=== PATIENT | male | born 1965 | race Caucasian/White ===

== ENCOUNTER 2017-06-28 23:03 | Observation (INO) ==
[2017-06-28] MEDS ORDERED: 0.9 % Sodium Chloride 500 ML IVC ONE (23:17)
--- NOTE | 2017-06-28 23:19 | Emergency Department Note ---
Disposition Clinical Impression: Chest pain Qualifiers: Chest pain type: unspecified Qualified Code(s): R07.9 - Chest pain, unspecified Disposition: Admitted As Inpatient Condition: Good [facility]errals: [facility]Primary Care Provider[facility] - Forms: ED Satisfaction Letter Time of Disposition: 23:51 Chest Pain HPI - General Chief Complaint: ED Chest Pain Stated Complaint: CP, SOB Time Seen by Provider: 06/28/17 23:07 Source: patient, EMS Limitations: no limitations Vital Signs Reviewed: Yes Nursing Notes Reviewed: Yes - History of Present Illness HPI Narrative: Patient is a 52-year-old male with a past medical history of COPD who presents to the emergency department with a complaint of sharp stabbing chest pain that started an hour prior to arrival. He states he was sitting at home on the couch when it came on suddenly as left-sided, sharp, radiating into his left shoulder blade and he states he did not experience any nausea, vomiting, shortness of breath. Denies any history of CAD or stents. He states he is currently asymptomatic his chest pain is improved and he received 3 doses of nitroglycerin by squad. He states he also received 4 baby aspirin in the squad. Severity scale (1-10): 0 - Related Data Previous Rx's Medication Instructions Recorded Albuterol Sulfate [Albuterol 1 puff IH Q4H PRN #1 puff 01/09/16 Inhaler] levoFLOXacin [Levaquin] 500 mg PO DAILY #7 tablet 01/09/16 predniSONE [Prednisone] 50 mg PO DAILY 5 Days 01/09/16 Allergies Allergy/AdvReac Type Severity Reaction Status Date / Time No Known Allergies Allergy Verified 06/28/17 23:10 All systems ED: reviewed and negative except as stated. Constitutional: Denies: fever Cardiovascular: Reports: chest pain Respiratory: Reports: cough (Not a new cough is a chronic cough due to his COPD. ). Denies: dyspnea, wheezes Gastrointestinal: Denies: abdominal pain, nausea, vomiting Chest Pain PMH - Past Medical History Medical history: Reports: COPD Psychiatric history: Reports: other - Social History Smoking Status: Former smoker Alcohol use: Reports: none Drug use: Reports: none Physical Exam Patient is sitting in bed comfortably. Does not appear to be in any acute distress. He is smiling on exam. - General Limitations: no limitations General appearance: alert, in no apparent distress, appears intoxicated - Head Head exam: atraumatic, normocephalic - Eye Eye exam: Present: normal appearance, PERRL, EOMI - ENT ENT exam: normal exam, normal oropharynx, mucous membranes moist - Neck Neck exam: Present: normal inspection, full ROM, trachea midline. Absent: tenderness - Chest Chest inspection: Present: normal inspection, symmetric chest wall rise. Absent : tenderness - Respiratory Respiratory exam: Present: normal lung sounds bilaterally. Absent: respiratory distress - Cardiovascular Cardiovascular exam: Present: regular rate, normal rhythm, normal heart sounds - Abdominal Exam Abdominal exam: Present: soft, Non-Tender, normal bowel sounds - Extremities Exam Extremities exam: Present: normal inspection, full ROM. Absent: tenderness - Expanded Lower Extremity Exam Neurovascular/Tendon exam: Present: normal capillary refill - Back Exam Back exam: Present: normal inspection, full ROM. Absent: tenderness - Neurological Exam Neurological exam: Present: alert, oriented X3 - Psychiatric Psychiatric exam: Present: normal affect, normal mood - Skin Skin exam: Present: warm, dry, intact, normal color Course Course Narrative: Patient complains of left-sided sharp stabbing chest pain that radiates into the shoulder blade that improved with nitroglycerin by squad he received 4 baby aspirin as well. Plan is to work him up for cardiac workup and most likely admit the patient for ACS rule out. - Reevaluation(s) Reevaluation #1: I spoke with Dr. Dial hospitalist agrees to accept the patient for ACS rule out. Time: 23:50 Reevaluation #2: I discussed the negative lab work with the patient. Discussed my plan to admit the patient for ACS rule out there are hospitalist. The patient agrees with the plan. Time: 23:52 Vital Signs Temperature 98.3 F 06/28/17 23:05 Pulse Rate 79 06/28/17 23:05 Respiratory Rate 16 06/28/17 23:05 Blood Pressure 119/83 06/28/17 23:05 O2 Sat by Pulse Oximetry 95 06/28/17 23:05 Temperature 98.3 F 06/28/17 23:05 Pulse Rate 79 06/28/17 23:05 Respiratory Rate 16 06/28/17 23:05 Blood Pressure 119/83 06/28/17 23:05 O2 Sat by Pulse Oximetry 95 06/28/17 23:05 Oxygen Delivery Oxygen Delivery Room Air Chest Pain - Medical Records Medical records reviewed: Yes I reviewed the patient's medical records. - Lab Data Lab results reviewed: Yes I reviewed the patient's lab results. Result diagrams: 06/28/17 23:11 06/28/17 23:11 Lab Results 06/28/17 06/28/17 06/28/17 Range/Units 23:11 23:11 23:11 WBC 9.9 (4.3-11.1) K/mcL RBC 4.49 (4.19-5.50) M/mcL Hgb 13.1 (12.9-16.9) g/dL Hct 38.9 (37.5-50.1) % MCV 86.6 (83.0-100.0) fL MCH 29.2 (28.0-33.3) pg MCHC 33.7 (31.6-35.5) g/dL RDW 13.0 (11.5-14.5) % Plt Count 281 (140-400) K/mcL MPV 9.4 (9.4-12.4) fL Immature Gran % 0.2 (0-4) % Seg Neutrophils % 49.1 % Lymphocytes % 39.4 % Monocytes % 8.5 % Eosinophils % 2.4 % Basophils % 0.4 % Neutrophils # 4.8 (1.6-8.9) K/mcL Lymphocytes # 3.9 (0.6-4.6) K/mcL Monocytes # 0.8 (0.0-1.3) K/mcL Eosinophils # 0.2 (0.0-0.6) K/mcL Basophils # 0.0 (0.0-0.2) K/mcL PT 12.2 H (9.4-12.1) Seconds INR 1.1 APTT 29.9 (26.0-36.0) Seconds Sodium 138 (136-145) mEq/L Potassium 3.6 (3.5-4.5) mEq/L Chloride 106 (98-109) mEq/L Carbon Dioxide 23 (19-29) mEq/L BUN 23 (8-26) mg/dL Creatinine 1.02 (0.72-1.25) mg/dL Est GFR ( Amer) > 60 (> 60) Est GFR (Non-Af Amer) > 60 (> 60) BUN/Creatinine Ratio 23 (6-26) Glucose 93 (70-99) mg/dL Calculated Osmolality 289 (280-300) Calcium 9.3 (8.6-10.8) mg/dL Troponin I (0-0.03) ng/mL 06/28/17 Range/Units 23:11 WBC (4.3-11.1) K/mcL RBC (4.19-5.50) M/mcL Hgb (12.9-16.9) g/dL Hct (37.5-50.1) % MCV (83.0-100.0) fL MCH (28.0-33.3) pg MCHC (31.6-35.5) g/dL RDW (11.5-14.5) % Plt Count (140-400) K/mcL MPV (9.4-12.4) fL Immature Gran % (0-4) % Seg Neutrophils % % Lymphocytes % % Monocytes % % Eosinophils % % Basophils % % Neutrophils # (1.6-8.9) K/mcL Lymphocytes # (0.6-4.6) K/mcL Monocytes # (0.0-1.3) K/mcL Eosinophils # (0.0-0.6) K/mcL Basophils # (0.0-0.2) K/mcL PT (9.4-12.1) Seconds INR APTT (26.0-36.0) Seconds Sodium (136-145) mEq/L Potassium (3.5-4.5) mEq/L Chloride (98-109) mEq/L Carbon Dioxide (19-29) mEq/L BUN (8-26) mg/dL Creatinine (0.72-1.25) mg/dL Est GFR ( Amer) (> 60) Est GFR (Non-Af Amer) (> 60) BUN/Creatinine Ratio (6-26) Glucose (70-99) mg/dL Calculated Osmolality (280-300) Calcium (8.6-10.8) mg/dL Troponin I 0.00 (0-0.03) ng/mL - Radiology Data Radiology results reviewed: Yes I reviewed the patient's radiology results. Chest X-Ray 06/28/17 23:17 IMPRESSION: No acute findings. D/ / Claire Leung MD / Claire Leung MD Interpreting Provider: Claire Leung MD - EKG Data EKG attestation: Yes I reviewed and interpreted this EKG. EKG results narrative: Patient's EKG is sinus rhythm at 77. Normal axis. CO intervals are within normal limits. 186, QRS of 106, QT of 362, QTc of 394. I do not appreciate any ST elevations or depressions on this EKG. EKG is unchanged from his prior on January 092015.
[2017-06-28 23:23] LABS: Basophils % 0.4 %; Eosinophils # 0.2 K/mcL (0.0-0.6); Eosinophils % 2.4 %; Hematocrit 38.9 % (37.5-50.1); Hemoglobin 13.1 g/dL (12.9-16.9); Immature Granulocytes % 0.2 % (0-4); Lymphocytes # 3.9 K/mcL (0.6-4.6); Lymphocytes % 39.4 %; Mean Corpuscular HGB Conc 33.7 g/dL (31.6-35.5); Mean Corpuscular Hemoglobin 29.2 pg (28.0-33.3); Mean Corpuscular Volume 86.6 fL (83.0-100.0); Mean Platelet Volume 9.4 fL (9.4-12.4); Monocytes # 0.8 K/mcL (0.0-1.3); Monocytes % 8.5 %; Neutrophils # 4.8 K/mcL (1.6-8.9); Platelet Count 281 K/mcL (140-400); Red Blood Count 4.49 M/mcL (4.19-5.50); Segmented Neutrophils % 49.1 %
[2017-06-28 23:28] LABS: INR 1.1; Prothrombin Time 12.2 Seconds (9.4-12.1)
[2017-06-28] MEDS ORDERED: Vancomycin Oral Soln 250 MG/2.5 ML UDC PO SCH (23:30)
[2017-06-28] MEDS ORDERED: 0.9 % Sodium Chloride 1,000 ML IVC ONE (23:30)
[2017-06-28 23:31] LABS: Activated Partial Thrombo Time 29.9 Seconds (26.0-36.0)
[2017-06-28 23:36] LABS: BUN/Creatinine Ratio 23 (6-26); Blood Urea Nitrogen 23 mg/dL (8-26); Calcium 9.3 mg/dL (8.6-10.8); Carbon Dioxide 23 mEq/L (19-29); Chloride 106 mEq/L (98-109); Glucose 93 mg/dL (70-99); Osmolality,Calculated 289 (280-300); Potassium 3.6 mEq/L (3.5-4.5); Sodium 138 mEq/L (136-145); eGFR For African Americans > 60 (> 60); eGFR For Non-African Americans > 60 (> 60)
--- NOTE | 2017-06-28 23:49 | Emergency Department Note ---
START Narrative - START START: I examined this patient and my medical decision-making was reviewed with the Resident Physician. I agree with the documented findings, disposition and treatment plan as described except to the extent set forth below. 52-year-old male presents emergency room for left-sided chest pain. Pain radiation to the left shoulder. Social with some weakness shortness of breath. Lasted over an hour. He received 3 nitroglycerin sublingual tablets via EMS which relieved his chest pain. He was also given aspirin in route. Workup in the ER is unremarkable. He does have multiple risk factors. We will admit for observation.
[2017-06-29] MEDS ORDERED: Naloxone 0.4 MG/ML INJ IVP PRN (00:36)
--- NOTE | 2017-06-29 00:43 | Internal Med History&Physical ---
Date of Encounter: 06/29/17 Time of Encounter: 00:41 Assessment and Plan (1) Chest pain Current visit: Yes Status: Acute EKG wnl. Trend trop. Given smoking hx, will r/o with stress testing in the a.m Qualifiers: Chest pain type: unspecified Qualified Code(s): R07.9 - Chest pain, unspecified (2) Depression Current visit: Yes Status: Acute continue home meds Qualifiers: Qualified Code(s): F32.9 - Major depressive disorder, single episode, unspecified Internal Medicine - H&P: HPI Chief complaint: Chest pain History of present illness: Mr. 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 Pain started at 9pm in the evening while at rest sitting. Described as left sided, radiating to shoulder blade, rate 9/10 and stabbing quality. Had a similar episode yesterday evening. Pain lasted 1 hour. 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 Has depression/anxiety on sertraline. EKG with rate 77, NSR, initial trop negative in the ED. Past Med Surg Social Fam HX - Past Medical History Medical history: COPD Psychiatric history: other - Social History Smoking Status: Former smoker Smokeless Tobacco Status: No Alcohol use: none Drug use: none - Additional Family History Additional family history: HTN Internal Medicine - H&P: Meds Albuterol Sulfate [Albuterol Inhaler] 1 puff IH Q4H PRN #1 puff 01/09/16 [Rx] levoFLOXacin [Levaquin] 500 mg PO DAILY #7 tablet 01/09/16 [Rx] predniSONE [Prednisone] 50 mg PO DAILY 5 Days 01/09/16 [Rx] Allergies No Known Allergies Allergy (Verified 06/28/17 23:10) All Systems PM: A 10-system review of systems was performed and is negative for pertinent findings except as documented above in the HPI. Review of systems: ROS 14 point review of systems reviewed as best as possible given presentation. Pertinent positive or negative as per HPI or otherwise reviewed as negative - Constitutional Vitals: Temp Pulse Resp BP Pulse Ox 98.3 F 65 20 108/75 95 06/28/17 23:05 06/29/17 00:20 06/29/17 00:20 06/29/17 00:20 06/29/17 00:20 Exam: General - AAO x 3 Psych - Appropriate affect/speech. No agitation Eyes - ESTELLA. Eye lids intact. No scleral icterus ENT - Oral mucosa pink, dentition intact. External ear clear/dry/intact. No thyromegaly Lymphatics - No cervical/inguinal lympadenopathy Neuro - No gross peripheral or central neuro deficits with intact CN 2-12 exam Heart - Sinus. RRR. S1 and S2 present. No added HS/murmurs appreciated. No elevated JVD appreciated. No calf swellings/erythema Lung - Adequate air entry b/l, No crackes/wheezes appreciated GI - Soft, non-tender. No hepatosplenomegaly/ascities. BS+ - No CVA/suprapubic tenderness or palpable bladder distension Skin - Intact. No rash/petechiae/ecchymosis. Warm extremities MSK - right BKA Internal Med - H&P Results - Labs CBC & Chem 7: 06/28/17 23:11 06/28/17 23:11
[2017-06-29] MEDS ORDERED: Regadenoson 0.4 MG/5 ML SYRINGE IVP ONE (07:19)
--- NOTE | 2017-06-29 10:01 | Nuclear Medicine Stress Report ---
Regadenoson Nuclear Stress Name: Pop Armijo Date of Study: 06/29/2017 Date: 1965 Ht: 74.0 in Medical Record#: [id number] Age: 52 Wt: 220.0 lb Gender: Male Order #: [id number] Location: [facility] Room: [facility] Supervising Provider: Henny Gramajo CNP Reading Physician: Monica Nova DO Ordering Physician: Ayla Dee CNP Primary Care Physician: [facility] Stress Technologist: Swapna Jaquez CHANGE RELEASE MANAGER, [employer] Technical Officer: Tammie Chavez Indications: Chest Pain Impression: Perfusion imaging was negative for ischemia or infarct. Pharmacologic ECG was negative for ischemia at the level of heart rate achieved. Gated EF = 55%. History: History of Smoking Stress Test Summary: Stress Test Type: Pharmacologic Regadenoson 0.4mg/5ml given IV Baseline Information: Initial Heart Rate: 71 Blood Pressure: 122/70 Stress Information: Test Terminated Due to (primary): As per protocol Maximum Blood Pressure: 114/72 Maximum Heart Rate: 110 Percent Maximum Heart Rate Achieved: 65 Double Product: [id number] METS Reached: 1 Symptoms: No chest symptoms Nuclear Summary: SPECT myocardial perfusion imaging using Tc99m Sestamibi given intravenously was performed at rest and following cardiac stress testing. The resting images were obtained following initial dose of 11.0 mCi. Following stress an additional dose of 35.4 mCi was given at peak exercise or 30 seconds post regadenoson infusion. Medication Given: Time Medication Dose Units Route Findings: Stress Note * Resting ECG demonstrated normal sinus rhythm with nonspecific ST abnormalities. * Pharmacologic stress ECG is negative for ischemia at level of heart rate achieved. * No arrhythmias were noted during stress. * Patient had no chest pain during stress. Hemodynamic responses * Normal hemodynamic responses to pharmacologic stress. Study Quality * Study quality was fair. Gated EF % * Gated EF = 55%. Left Ventricle * The left ventricle is not dilated. TID * No evidence of transient ischemic dilatation. Lung Uptake * There is no evidence of increase lung uptake. NORMALS * Normal wall motion. PERFUSION * There is a small sized, mild intensity fixed perfusion defect involving the basal inferior wall. Wall motion is normal. Findings represent artifact. * Other segments demonstrate normal rest and stress perfusion. Updated by Monica Nova on 06/29/2017 9:56:41 AM electronically signed on 06/29/2017 9:57:28 AM with status of Final
[2017-06-29 11:04] VITALS: BP 116/75
--- NOTE | 2017-06-29 12:39 | Discharge Summary ---
Date of Encounter: 06/29/17 Time of Encounter: 10:00 - Discharge Diagnosis (1) Chest pain Priority: Primary Status: Acute Qualifiers: Chest pain type: unspecified Qualified Code(s): R07.9 - Chest pain, unspecified (2) Depression Priority: Secondary Status: Acute Qualifiers: Qualified Code(s): F32.9 - Major depressive disorder, single episode, unspecified - Discharge Medications Home Medications: Albuterol Sulfate [Albuterol Inhaler] 1 puff IH Q4H PRN #1 puff 01/09/16 [Rx] levoFLOXacin [Levaquin] 500 mg PO DAILY #7 tablet 01/09/16 [Rx] predniSONE [Prednisone] 50 mg PO DAILY 5 Days 01/09/16 [Rx] Allergies/Adverse Reactions: Allergies No Known Allergies Allergy (Verified 06/28/17 23:10) Procedures/tests Complete & Pending: Procedures Performed prior 72 hours Category Date Time Status NM saul perf SPECT multi [NM] Routine Exams 06/29/17 06:44 Taken SP pharm nuclear stress Routine Y 06/29/17 07:30 Completed Date of admission: 06/29/17 00:11 Primary care physician: [facility] Discharging clinician: Spencer Li Anticipated date of discharge: 06/29/17 - Patient Status Disposition: Home, Self-Care Condition: Good Functional capacity at discharge: independent ambulation Overall status at discharge: patient is back to baseline - Discharge Instructions Follow Up With: [facility] [Primary Care Provider] - - Diet and Activity Activity: increase activity as tolerated Diet: advance to your usual diet Interval History: HPI: Mr. 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 Pain started at 9pm in the evening while at rest sitting. Described as left sided, radiating to shoulder blade, rate 9/10 and stabbing quality. Had a similar episode yesterday evening. Pain lasted 1 hour. 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 Has depression/anxiety on sertraline. EKG with rate 77, NSR, initial trop negative in the ED. Hospital course: Mr. Armijo is a 52 year old male admitted for chest pain to rule out ACS. Patient was placed on continuous cardiac monitoring. 2 sets of troponin negative. Chest x-ray and EKG unremarkable. Nuclear stress test has been done , which is negative. Patient has no chest pain and more since admission. We will discharge patient home. Smoking cessation education done. I saw and examined the patient today. He is awake, alert, oriented 3. Vitals are stable. No further chest pain. We will discharge patient home and to follow-up with PCP as outpatient. Time spent discussing smoking cessation with patient: 3 to 10 minutes - Time Spent with Patient Total time spent providing and/or coordinating discharge services: 25 minutes Less than 30 minutes - Constitutional Vitals: Temp Pulse Resp BP Pulse Ox 97.6 F 87 14 116/75 96 06/29/17 11:02 06/29/17 11:02 06/29/17 11:02 06/29/17 11:02 06/29/17 11:02 General appearance: Present: A&O X 3, answers questions appropriately - Head Head exam: Present: atraumatic, normocephalic - Eye Eye exam: Present: PERRL, conjuntiva pink, sclera anicteric Pupils: Present: PERRL - Neck Neck exam general surgery: Present: supple, trachea midline. Absent: lymphadenopathy - Respiratory Respiratory exam: Present: CTAB. Absent: accessory muscle use, rales, rhonchi, wheezes - Cardiovascular Cardiovascular exam: Present: RRR, +S1, +S2. Absent: diastolic murmur, gallop, rubs, systolic murmur - GI/Abdominal GI/Abdominal exam: Present: normal bowel sounds, soft, no peritoneal signs. Absent: distended, tenderness - Extremities Exam Extremities exam: Present: warm, radial pulses palpable and symetrical. Absent : calf tenderness, cyanotic, pedal edema - Neurological Exam Neurological exam: Present: CN II-XII intact, oriented X3, no focal deficits. Absent: pronater drift, facial droop, speech deficit - Skin Skin exam: Present: dry, intact
--- NOTE | 2017-06-29 17:56 | Electrocardiograph Report ---
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
== END 2017-06-29 15:36 | disposition home or self-care (01) ==
LOC: 3BNU 23:03 → EMEROO 23:03 → 3BNU 06-29 01:04
PROVIDERS: ADMIT Internal Medicine Hematology & Oncology; ATTEND Nurse Practitioner Family

== ENCOUNTER 2018-09-09 16:26 | Inpatient (IN) ==
[2018-09-09 17:08] LABS: Basophils % 0.3 %; Eosinophils # 0.1 K/mcL (0.0-0.6); Eosinophils % 1.3 %; Hematocrit 34.6 % (37.5-50.1); Hemoglobin 12.4 g/dL (12.9-16.9); Immature Granulocytes % 0.3 % (0-4); Lymphocytes # 0.4 K/mcL (0.6-4.6); Lymphocytes % 10.9 %; Mean Corpuscular HGB Conc 35.8 g/dL (31.6-35.5); Mean Corpuscular Hemoglobin 29.7 pg (28.0-33.3); Mean Platelet Volume 10.3 fL (9.4-12.4); Monocytes # 0.3 K/mcL (0.0-1.3); Monocytes % 8.2 %; Platelet Count 152 K/mcL (140-400); Red Blood Count 4.17 M/mcL (4.19-5.50); Red Cell Distribution Width 12.8 % (11.5-14.5)
[2018-09-09 17:13] LABS: Prothrombin Time 11.1 Seconds (9.4-12.1)
[2018-09-09 17:16] LABS: Activated Partial Thrombo Time 28.5 Seconds (26.0-36.0)
[2018-09-09] MEDS: D5% in 0.9% NACL 1,000 ML IVC SCH (17:16)
[2018-09-09 17:20] LABS: Alanine Aminotransferase 24 Units/L (7-52); Albumin 3.9 g/dL (3.5-5.7); Albumin/Globulin Ratio 1.2 (1.1-2.2); Alkaline Phosphatase 61 Units/L (34-104); Aspartate Amino Transferase 16 Units/L (13-39); BUN/Creatinine Ratio 30 (6-26); Bilirubin,Total 0.5 mg/dL (0.3-1.0); Blood Urea Nitrogen 20 mg/dL (6-20); Calcium 9.8 mg/dL (8.6-10.3); Carbon Dioxide 26 mEq/L (23-29); Chloride 104 mEq/L (98-107); Globulin 3.3 g/dL (2.4-3.5); Glucose 81 mg/dL (70-105); Osmolality,Calculated 282 (280-300); Potassium 4.2 mEq/L (3.5-5.1); Sodium 135 mEq/L (136-145); Total Protein 7.2 g/dL (6.4-8.9); eGFR For Non-African Americans > 60 (> 60)
[2018-09-09] MEDS ORDERED: Pantoprazole 40 MG VIAL IVP ONE (18:39)
[2018-09-09] MEDS ORDERED: Ondansetron 4 MG/2 ML VIAL IVP PRN (23:28)
[2018-09-09] MEDS ORDERED: OXYCODONE Oral CONC 10 MG/0.5 ML ORAL.SYG SL PRN (23:30)
[2018-09-10] MEDS: 0.9 % Sodium Chloride 1,000 ML IVC SCH ×4 (00:55→21:31)
[2018-09-10 03:22] LABS: Basophils % 0.3 %; Eosinophils # 0.1 K/mcL (0.0-0.6); Eosinophils % 2.6 %; Hematocrit 33.5 % (37.5-50.1); Hemoglobin 11.4 g/dL (12.9-16.9); Immature Granulocytes % 0.3 % (0-4); Lymphocytes # 0.5 K/mcL (0.6-4.6); Lymphocytes % 15.3 %; Mean Corpuscular Hemoglobin 29.2 pg (28.0-33.3); Mean Corpuscular Volume 85.7 fL (83.0-100.0); Mean Platelet Volume 10.1 fL (9.4-12.4); Monocytes # 0.2 K/mcL (0.0-1.3); Monocytes % 7.8 %; Neutrophils # 2.3 K/mcL (1.6-8.9); Platelet Count 125 K/mcL (140-400); Red Blood Count 3.91 M/mcL (4.19-5.50); Red Cell Distribution Width 12.6 % (11.5-14.5); Segmented Neutrophils % 73.7 %
[2018-09-10 03:45] LABS: BUN/Creatinine Ratio 27 (6-26); Blood Urea Nitrogen 16 mg/dL (6-20); Calcium 8.8 mg/dL (8.6-10.3); Carbon Dioxide 26 mEq/L (23-29); Chloride 106 mEq/L (98-107); Glucose 93 mg/dL (70-105); Osmolality,Calculated 285 (280-300); Sodium 137 mEq/L (136-145); eGFR For Non-African Americans > 60 (> 60)
[2018-09-10] MEDS: Pantoprazole 40 MG VIAL IVP SCH ×2 (05:46→08:20)
--- NOTE | 2018-09-10 07:39 | General Surg History&Physical ---
Date of Encounter: 09/10/18 Time of Encounter: 07:37 Assessment and Plan (1) Esophageal carcinoma Current Visit: Yes Status: Acute 53M with esophageal cancer with significant weight loss and progressive dysphagia; plan for J tube placement today will need home health for continued management/supplies preop cxr, ekg The assessment and plan as outlined above was discussed with the patient and/or family members who expressed understanding and agreement. All questions were answered. History of Present Illness Chief complaint: esophageal cancer/weight loss HPI: Mr. Armijo is a 53 year old male with a recent diagnosis of esophgeal cancer currently undergoing neoadjuvant therapy (next radiation date is today and next chemo session is this week. his last date for neoadjuvant therapy is 09/30) who is now experiencing worsening dysphagia to both solids and now to liquids. His goal is to consume about 5 bottles of ensure, but he states that he is christel to get through three bottles. Overall he is nutritionally deplete, losing 35lbs since his diagnosis and neoadjuvant therapy Past Med Surg Social Fam HX - Past Medical History Medical history: arthritis, cancer, COPD, hyperlipidemia, other Additional medical history: sleep apnea, esophageal cancer Psychiatric history: PTSD - Past Surgical History Surgical History: other Additional surgical history: colonoscopy,. Right BKA - Social History Smoking Status: Former smoker Smokeless Tobacco Status: No Alcohol use: none Drug use: none - Family History Maternal Grandmother Living Status: Hx Family Cardiac Disorders: Yes ([place]) Hx Family Respiratory Disorders: No Hx Family Cancer: No Hx Family GI Disorders: No Hx Family Endocrine Disorder: No Hx Family Neuromuscular Disorders: No Hx Family Neurologic Disorders: No Hx Family HEENT Disorders: No Hx Family Autoimmune Disorders: No Father Living Status: Hx Family Cardiac Disorders: No Hx Family Respiratory Disorders: No Hx Family Cancer: Yes (liver) Hx Family GI Disorders: No Hx Family Endocrine Disorder: No Hx Family Neuromuscular Disorders: No Hx Family Neurologic Disorders: No Hx Family HEENT Disorders: No Hx Family Autoimmune Disorders: No Mother Living Status: Still Living Hx Family Cancer: Yes Brother Living Status: Hx Family Cardiac Disorders: Yes Medications and Allergies No Known Home Drugs 09/09/18 [History] 3 Allergy/AdvReac Type Severity Reaction Status Date / Time No Known Allergies Allergy Verified 09/07/18 08:18 Review of Systems All systems PM: 12 point ROS negative besides HPI findings General Surgery Exam Initial Vital Signs Temp Pulse Resp BP Pulse Ox 97.9 F 89 16 113/71 99 09/09/18 16:30 09/09/18 16:30 09/09/18 16:30 09/09/18 16:30 09/09/18 16:30 - General physical appearance no distress - Eyes normal ocular movement - ENT normocephalic - Neck no lymphadectomy - Respiratory normal expansion, normal respiratory effort - Cardiovascular Cardiovascular exam: Present: RRR - Abdomen Abdomen general surgery: Present: soft, non tender - Integumentary Integumentary general surgery: Present: warm and dry - Neurologic Present: CN 2-12 grossly intact - Musculoskeletal Present: normal posture - Psychiatric Psychiatric general surgery: Present: A&Ox3 Results - Labs 09/10/18 03:15 09/10/18 03:15 Abnormal lab results WBC 3.1 K/mcL (4.3-11.1) L 09/10/18 03:15 RBC 3.91 M/mcL (4.19-5.50) L 09/10/18 03:15 Hgb 11.4 g/dL (12.9-16.9) L 09/10/18 03:15 Hct 33.5 % (37.5-50.1) L 09/10/18 03:15 Plt Count 125 K/mcL (140-400) L 09/10/18 03:15 Lymphocytes # 0.5 K/mcL (0.6-4.6) L 09/10/18 03:15 Creatinine 0.59 mg/dL (0.70-1.30) L 09/10/18 03:15 BUN/Creatinine Ratio 27 (6-26) H 09/10/18 03:15 Diabetes panel 09/10/18 Range/Units 03:15 Sodium 137 (136-145) mEq/L Potassium 4.0 (3.5-5.1) mEq/L Chloride 106 (98-107) mEq/L Carbon Dioxide 26 (23-29) mEq/L BUN 16 (6-20) mg/dL Creatinine 0.59 L (0.70-1.30) mg/dL Glucose 93 (70-105) mg/dL Calcium 8.8 (8.6-10.3) mg/dL Calcium panel 09/10/18 Range/Units 03:15 Calcium 8.8 (8.6-10.3) mg/dL Pituitary panel 09/10/18 Range/Units 03:15 Sodium 137 (136-145) mEq/L Potassium 4.0 (3.5-5.1) mEq/L Chloride 106 (98-107) mEq/L Carbon Dioxide 26 (23-29) mEq/L BUN 16 (6-20) mg/dL Creatinine 0.59 L (0.70-1.30) mg/dL Glucose 93 (70-105) mg/dL Calcium 8.8 (8.6-10.3) mg/dL Adrenal panel 09/10/18 Range/Units 03:15 Sodium 137 (136-145) mEq/L Potassium 4.0 (3.5-5.1) mEq/L Chloride 106 (98-107) mEq/L Carbon Dioxide 26 (23-29) mEq/L BUN 16 (6-20) mg/dL Creatinine 0.59 L (0.70-1.30) mg/dL Glucose 93 (70-105) mg/dL Calcium 8.8 (8.6-10.3) mg/dL All other labs normal.
[2018-09-10] MEDS ORDERED: Ipratropium/Albuterol Neb 3 ML IH PRN ×2 (07:54→20:34)
[2018-09-10] MEDS ORDERED: Nicotine 14 MG PATCH.TD24 TD PRN (07:55)
[2018-09-10] MEDS: *HR* Heparin 5,000 UNIT/ML VIAL SQ SCH ×2 (10:36→17:37)
[2018-09-10] MEDS ORDERED: Mag Hydrox/Al Hydrox/Simeth 30 ML UDC PO ONE (10:56)
[2018-09-10] MEDS ORDERED: Albuterol 2.5 MG/3 ML NEBULIZER IH ONE ×2 (17:26→18:47)
--- NOTE | 2018-09-10 17:29 | Anesthesia Evaluation PreOp ---
Date of Encounter: 09/10/18 Time of Encounter: 17:35 - Past History Planned Operation: Open Jejunostomy Cardiac History: Hyperlipidemia Pulmonary History: Smoker, COPD [employer] History: Denies Any Significant HX Other Medical History: Denies Any Significant HX Anesthesia History: No Prior Anesthetic Complications Alcohol Use: none Drug use: none Medications and Allergies No Known Home Drugs 09/09/18 [History] 3 Allergy/AdvReac Type Severity Reaction Status Date / Time No Known Allergies Allergy Verified 09/07/18 08:18 - Meds/Allergy Pre-op Review Medications Reviewed: Yes Allergies Reviewed: Yes Beta Blockers on Current Med List: No Anesthesia Results - Labs 09/10/18 03:15 09/10/18 03:15 Laboratory Tests 09/09/18 09/10/18 09/10/18 16:50 03:15 03:15 Hgb 11.4 L Hct 33.5 L Plt Count 125 L PT 11.1 INR 1.0 APTT 28.5 Sodium 137 Potassium 4.0 BUN 16 Creatinine 0.59 L - Imaging EKG: report reviewed (SR) Additional studies: ECHO 2016 EF 55% no pulm htn Anesthesia Exam O2 Sat Height 1.88 m Weight 93.5 kg O2 Sat by Pulse Oximetry 96 O2 Sat by Pulse Oximetry 97 O2 Sat by Pulse Oximetry 97 O2 Sat by Pulse Oximetry 96 O2 Sat by Pulse Oximetry 98 O2 Sat by Pulse Oximetry 100 Vital Signs Temp Pulse Resp BP Pulse Ox 97.9 F 89 16 113/71 99 09/09/18 16:30 09/09/18 16:30 09/09/18 16:30 09/09/18 16:30 09/09/18 16:30 Height: 6'2 Weight: 206 lbs NPO (# of Hours): MN Pain Scale: 0 - HEENT Pupil (Motor): Pupils equal, EOMI Mallampati: II Teeth: Normal Oral Opening: Greater than 3 - [employer] LOC: Oriented [employer] Motor: Normal RUE, Normal LUE, Normal RLE, Normal LLE, Normal Face [employer] Sensory: Normal: RUE, LUE, RLE, LLE, Face - Cardiac Rhythm: Regular Murmur: None JVD: No Carotid Bruit: No - Pulmonary Breath Sounds: bilateral Clear Respiratory Effort: Symmetrical Anesthesia Assess/Plan ASA Score: 2 Modified Linden Scale for Level of Consciousness: Cooperative, oriented, and tranquil Anesthetic Plan: General Monitoring Plan: Standard Monitors Recovery Plan: PACU (Discussed GA, agrees to proceed)
[2018-09-10] MEDS ORDERED: *HR* FentaNYL (PF) 100 MCG/2 ML VIAL ONE ×2 (17:47→18:25)
[2018-09-10] MEDS ORDERED: *HR* Succinylcholine 200 MG/10 ML VIAL IVP ONE (17:47)
[2018-09-10] MEDS ORDERED: Lidocaine -MPF 2% 2 ML VIAL ONE (17:47)
[2018-09-10] MEDS ORDERED: *HR* Propofol 200 MG/20 ML VIAL IVP ONE (17:47)
[2018-09-10] MEDS ORDERED: *HR* Midazolam HCl 2 MG/2 ML VIAL ONE (17:47)
[2018-09-10] MEDS ORDERED: *HR* Rocuronium Bromide 50 MG/5 ML VIAL ONE (17:47)
[2018-09-10] MEDS ORDERED: Acetaminophen IV 1,000 MG/100 ML INFUS..BTL ONE (17:48)
[2018-09-10] MEDS ORDERED: Lidocaine -MPF 4% 5 ML AMPUL ONE (17:50)
[2018-09-10] MEDS ORDERED: Ipratropium Neb 0.5 MG NEBULIZER IH ONE (18:47)
[2018-09-10] MEDS ORDERED: *HR* Meperidine 25 MG/ML SYRINGE IVP PRN (18:47)
[2018-09-10] MEDS ORDERED: *HR* Labetalol 20 MG/4 ML SYRINGE IVP PRN (18:47)
[2018-09-10] MEDS ORDERED: *HR* HYDROmorphone (PF) 1 MG/ML SYRINGE IVP PRN (18:47)
[2018-09-10] MEDS ORDERED: *HR* Promethazine 25 MG/ML VIAL IVP PRN (18:47)
[2018-09-10] MEDS ORDERED: Neostigmine Methylsulfate 3 MG/3 ML SYRINGE ONE (19:08)
[2018-09-10] MEDS ORDERED: *HR* Morphine 10 MG/ML VIAL ONE ×2 (19:10→19:17)
--- NOTE | 2018-09-10 19:54 | Operative Note ---
Date of procedure: 09/10/18 Pre-op diagnosis: dysphagia 2/2 esophageal cancer Post-op diagnosis: same Procedure: feeding jejunostomy placement Implants: red rubber catheter for J tube feeds Complications: none Anesthesia: GETA Local Anesthetics: 0.5% Sensorcaine HCL SubQ (cc) Surgeon: Ismael Mccarthy Was there an emergency veterinary assistant present: No Estimated blood loss (cc): 10 Specimen: none Condition: stable Disposition: PACU Procedure in Detail: patient was brought into the operating room suite. Placed in the supine position. Mechanical DVT prophylaxis was placed. He underwent smooth induction of anesthesia. Prepped and draped in the usual fashion. Preoperative antibiotics were given. A time out was held identifying correct patinet pathology procedure and physician. I created a midline incision, dissected through the abdominal wall layers until I entered the abdomen. I found the ligament of treitz and found the most proximal limb of bowel that would reach to the left abdominal wall without tension. This was approximately 45cm distal to the ligament of treitz. I created a purse string using 3-0 silk suture around the bowel on the antimesenteric side. I followed that with a second pursestring around the original. I created my enterotomy and inserted the ramiro rubber catheter. I then tied my sutures. I then created an incision on the outside of the abdominal and pulled the end of the catheter through it. I then created my serosal tunnel in the Weitzl fashion. I then anchored the bowel to the abdominal wall in three places. I then flushed the red rubber catheter with saline via a toumey syringe. There was no obvious leaking from the bowel. All air an fluid went into the bowel. I then secured the catheter to the abdominal wall with 2-0 prolene. I then closed the fascia using the 1-0 PDS suture in a running fashion. I used vicryl to close the deep layers and stapled the skin together. The patient tolerated the procedure and was escorted to PACu in stable condition.
--- NOTE | 2018-09-10 20:14 | Anesthesia Evaluation Post Op ---
Date of Encounter: 09/10/18 Time of Encounter: 20:12 - Vital Signs Vital Signs: Vital Signs/O2 Sat, Most Current Temp Pulse Resp BP Pulse Ox 97.5 F L 87 16 137/94 94 09/10/18 19:40 09/10/18 20:00 09/10/18 20:00 09/10/18 20:00 09/10/18 20:00 - Lungs Lungs: Clear Ascult./Percussion - Airway Airway: Non-obstructed - Cardiovascular Regular Rate - Mental Status Mental Status: Alert & Oriented, Answers Appropriately - Pain Pain Scale: 0 - Nausea Vomiting Nausea Vomiting: Not Present - Hydration Hydration: Ice chips, Has not voided - Discharge PostOp Status: Transfer Patient to floor
[2018-09-10] MEDS: D5% in 0.9% NACL 1,000 ML IVC SCH (22:19)
[2018-09-10] MEDS: OXYCODONE Oral CONC 10 MG/0.5 ML ORAL.SYG SL PRN (23:22)
[2018-09-11] MEDS: 0.9 % Sodium Chloride 1,000 ML IVC SCH ×3 (05:21→21:19)
[2018-09-11] MEDS: *HR* Heparin 5,000 UNIT/ML VIAL SQ SCH ×2 (05:21→17:41)
[2018-09-11] MEDS: OXYCODONE Oral CONC 10 MG/0.5 ML ORAL.SYG SL PRN ×2 (05:22→17:41)
[2018-09-11] MEDS: Pantoprazole 40 MG VIAL IVP SCH (08:31)
--- NOTE | 2018-09-11 09:15 | Electrocardiograph Report ---
[place] [id number] Test Date: 2018-09-10 Pat Name: Pop Armijo Department: 115 Room: 3A48 Gender: M Kennel Keeper: : 1965 Requested By: Ismael Mccarthy Order Number: [id number] Reading MD: Monica Nova Measurements Intervals [place] Rate: 68 P: 54 NH: 194 QRS: 5 QRSD: 96 T: 27 QT: 382 QTc: 400 Interpretive Statements SINUS RHYTHM Electronically Signed On 09-11-2018 9:13:33 EDT by Monica Nova
--- NOTE | 2018-09-11 13:48 | General Surgery Progress Note ---
Date of Encounter: 09/11/18 Time of Encounter: 13:46 - Assessment and Plan (1) Esophageal carcinoma Current Visit: Yes Status: Acute POD 1 feeding jejunostomy tube placement with Dr Mccarthy for chronic dysphasia due to mass and weight loss - serial abdominal exams - supportive care and pain management; added Toradol q6 prn and continue oxycodone 10mg q 6 prn - continue IVFs - continue GI prophylaxes - up to chair tid - started tube feeds today; Nutrition consulted and may advance per protocol - plan to start routine J peg care tomorrow - trial soft by mouth with insure supplements - social work consulted for discharge planning as will need home health for j tube care (2) Jejunostomy tube site pain Current Visit: Yes Status: Acute see above (3) COPD (chronic obstructive pulmonary disease) Current Visit: Yes Status: Acute No signs of exacerbation - duonebs PRN Qualifiers: COPD type: unspecified COPD Qualified Code(s): J44.9 - Chronic obstructive pulmonary disease, unspecified (4) Malnutrition Current Visit: Yes Status: Chronic Nutrition consulted for tube feeds started at normal rate Qualifiers: Malnutrition type: protein-calorie malnutrition Protein-calorie malnutrition severity: unspecified severity Qualified Code(s): E46 - Unspecified protein-calorie malnutrition (5) DVT prophylaxis Current Visit: Yes Status: Acute Heparin sq and scd Subjective Patient reports: still having pain (worse at incision), other (tolerating tube feeds started today) Objective Vital Signs - Last 8 Hours Temp Pulse Resp BP Pulse Ox 09/11/18 12:42 98.4 F 107 16 121/82 92 09/11/18 07:48 97.9 F 112 15 138/81 98 Intake and Output 09/10/18 09/11/18 09/11/18 23:59 07:59 15:59 Intake Total 1000 / 1000 1000 / 1000 1085 / 1085 Output Total 650 / 650 650 / 650 Balance 990 / 990 350 / 350 435 / 435 Intake: IV Fluids 1000 / 1000 1000 / 1000 1000 / 1000 0.9 % Sodium Chloride 1,000 ML 1000 / 1000 1000 / 1000 1000 / 1000 @ 125 mls/hr IVC .Q8H [facility] Rx#: [id number] Oral 0 / 0 0 / 0 Free Water Intake Amount 85 / 85 Output: Urine 0 / 0 650 / 650 650 / 650 Estimated Blood Loss Other: Meal NPO for breakfast Weight 93.8 kg Blood Glucose* 95 Patient Weight 09/11/18 23:59 Weight 93.8 kg - General physical appearance well developed, well nourished, moderate pain - Eyes normal ocular movement - ENT normal pinna, normal nares, normal mucosa - Respiratory normal expansion, normal respiratory effort, clear to auscultation - Cardiovascular Cardiovascular exam: Present: RRR, no murmurs/rubs/gallops - Abdomen Abdomen: Present: bowel sounds present (minimal), soft Abdominal Tenderness: LUQ (at peg) - Incision Incision: Present: approximated. Absent: draining, inflamed, erythema - Integumentary no rash, no growths, no abnormal pigmentation - Neurologic CN 2-12 grossly intact, normal coordination, normal sensation - Musculoskeletal normal posture, other (moblity limited by amputation) - Psychiatric oriented to time, oriented to person, oriented to place, speech is normal, memory intact - Labs 09/10/18 03:15 09/10/18 03:15 Consult Discharge Plan - Plan Referrals: [facility] [Outside]
[2018-09-11] MEDS: Ketorolac 15 MG/ML VIAL IVP PRN (21:55)
[2018-09-11] MEDS: Ondansetron 4 MG/2 ML VIAL IVP PRN (21:56)
[2018-09-12] MEDS: OXYCODONE Oral CONC 10 MG/0.5 ML ORAL.SYG SL PRN ×3 (02:54→16:26)
[2018-09-12] MEDS: Ketorolac 15 MG/ML VIAL IVP PRN ×3 (03:45→19:32)
[2018-09-12] MEDS: 0.9 % Sodium Chloride 1,000 ML IVC SCH ×3 (05:22→23:42)
[2018-09-12] MEDS: *HR* Heparin 5,000 UNIT/ML VIAL SQ SCH ×2 (05:22→18:22)
--- NOTE | 2018-09-12 07:15 | General Surgery Progress Note ---
Date of Encounter: 09/12/18 Time of Encounter: 07:13 - Assessment and Plan (1) Esophageal carcinoma Current Visit: Yes Status: Acute POD 1 feeding jejunostomy tube placement with Dr Mccarthy for chronic dysphasia due to mass and weight loss - serial abdominal exams - supportive care and pain management - continue IVFs - continue GI prophylaxes - up to chair tid - start routine J peg care - social work consulted for discharge planning as will need home health for j tube care; will need [place] home health so will wait untill Thursday On Thursday- started tube feeds yesterday but held overnight due to increased pain and distension , ordered Acute abdominal series showed free air but Radiologist Dr Alejo could not appreciate if is was just consistent with POD 2 or significant for perforation. Then ordered CT showed possible ileus but not concerning for perforation - NPO - hold tube feeds but continue to flush (2) Jejunostomy tube site pain Current Visit: Yes Status: Acute see above (3) COPD (chronic obstructive pulmonary disease) Current Visit: Yes Status: Acute No signs of exacerbation - duonebs PRN Qualifiers: COPD type: unspecified COPD Qualified Code(s): J44.9 - Chronic obstructive pulmonary disease, unspecified (4) Ileus, postoperative Current Visit: Yes Status: Acute see above (5) Malnutrition Current Visit: Yes Status: Chronic Nutrition consulted for tube feeds - see above Qualifiers: Malnutrition type: protein-calorie malnutrition Protein-calorie malnutrition severity: unspecified severity Qualified Code(s): E46 - Unspecified protein-calorie malnutrition (6) DVT prophylaxis Current Visit: Yes Status: Acute Heparin sq and scd Subjective Patient reports: still having pain, no flatus, no bowel movement, nausea Narrative: Increased pain and nausea overnight lead to tube feeds being stoped. He describes pain as starting in epigastric region and moving to right side; deeper %greater than incision. Nausea worse with transfer. Improved with pain mediations more than stomping tube feeds. Tachycardia overnight with highest 118 last evening- vitals otherwise stable. Objective Vital Signs - Last 8 Hours Temp Pulse Resp BP Pulse Ox 09/12/18 03:06 98.7 F 100 15 143/90 92 Intake and Output 09/11/18 09/11/18 09/12/18 15:59 23:59 07:59 Intake Total 1115 / 1115 1560 / 1560 1000 / 1000 Output Total 650 / 650 0 / 0 350 / 350 Balance 465 / 465 1560 / 1560 650 / 650 Intake: IV Fluids 1000 / 1000 1000 / 1000 1000 / 1000 0.9 % Sodium Chloride 1,000 ML 1000 / 1000 1000 / 1000 1000 / 1000 @ 125 mls/hr IVC .Q8H [facility] Rx#: [id number] Oral 0 / 0 260 / 260 0 / 0 Free Water 100 / 100 Free Water Intake Amount 115 / 115 200 / 200 Output: Urine 650 / 650 0 / 0 350 / 350 Other: Meal NPO for breakfast # Bowel Movements 0 - General physical appearance well developed, well nourished, moderate distress - ENT normal pinna, normal nares, dry mucosa - Respiratory normal expansion, normal respiratory effort, clear to auscultation - Cardiovascular Cardiovascular exam: Present: RRR, no murmurs/rubs/gallops - Abdomen Abdomen: Present: bowel sounds present, soft, distended. Absent: guarding Abdominal Tenderness: RUQ, RLQ - Incision Incision: Present: red, approximated. Absent: draining, inflamed, purulent - Integumentary no rash, no growths, no abnormal pigmentation - Neurologic CN 2-12 grossly intact, normal coordination, normal sensation - Musculoskeletal normal posture, other (left below the knee amputated) - Psychiatric oriented to time, oriented to person, oriented to place, speech is normal, memory intact - Labs 09/10/18 03:15 09/10/18 03:15 Consult Discharge Plan - Plan Referrals: [facility] [Outside]
[2018-09-12] MEDS ORDERED: Isovue-370 500 ML INFUS..BTL IV ONE (08:20)
[2018-09-12] MEDS: Pantoprazole 40 MG VIAL IVP SCH (08:59)
[2018-09-12] MEDS: Ondansetron 4 MG/2 ML VIAL IVP PRN (17:19)
[2018-09-13] MEDS: Ketorolac 15 MG/ML VIAL IVP PRN ×4 (03:16→21:56)
[2018-09-13 03:52] LABS: Hematocrit 33.3 % (37.5-50.1); Hemoglobin 11.4 g/dL (12.9-16.9); Mean Corpuscular HGB Conc 34.2 g/dL (31.6-35.5); Mean Corpuscular Hemoglobin 29.8 pg (28.0-33.3); Mean Corpuscular Volume 86.9 fL (83.0-100.0); Mean Platelet Volume 10.1 fL (9.4-12.4); Platelet Count 113 K/mcL (140-400); Red Blood Count 3.83 M/mcL (4.19-5.50); Red Cell Distribution Width 12.9 % (11.5-14.5)
[2018-09-13 04:27] LABS: Lymphocytes # 0.2 K/mcL (0.6-4.6); Monocytes # 0.3 K/mcL (0.0-1.3); Neutrophils # 1.6 K/mcL (1.6-8.9); Platelet Estimate Slight Decrease (Normal)
[2018-09-13] MEDS: *HR* Heparin 5,000 UNIT/ML VIAL SQ SCH ×2 (05:09→18:22)
--- NOTE | 2018-09-13 07:55 | General Surgery Progress Note ---
<Meghann Smith - Last Filed: 09/13/18 13:31> Date of Encounter: 09/13/18 Time of Encounter: 07:53 - Assessment and Plan (1) Esophageal carcinoma Current Visit: Yes Status: Acute POD 3 feeding jejunostomy tube placement with Dr Mccarthy for chronic dysphasia due to mass and weight loss - serial abdominal exams - supportive care and pain management - continue IVFs - continue GI prophylaxes - up to chair and ambulate freely tid - start routine J peg care Social work consulted for discharge planning as will need home health for j tube care; will need [place] home health On Thursday- started tube feeds yesterday but held overnight due to increased pain and distension , ordered Acute abdominal series showed free air but Radiologist Dr Alejo could not appreciate if is was just consistent with POD 2 or significant for perforation. Then ordered CT showed possible ileus but not concerning for perforation - start clears and insure clears - Nutrition consulted and would appreciate their help to work with Dr Mccarthy in establishing a feeding schedule starting at slow rate of 10. Patient would prefer nightly feeding. - continue to flush tube during day Possible discharge tomorrow if able to tolerate tube feeds. Follow up out patient arranged with Dr Mccarthy on at 9am. (2) Ileus, postoperative Current Visit: Yes Status: Acute see above (3) Jejunostomy tube site pain Current Visit: Yes Status: Acute see above (4) COPD (chronic obstructive pulmonary disease) Current Visit: Yes Status: Acute No signs of exacerbation - duonebs PRN Qualifiers: COPD type: unspecified COPD Qualified Code(s): J44.9 - Chronic obstructive pulmonary disease, unspecified (5) Malnutrition Current Visit: Yes Status: Chronic Nutrition consulted for tube feeds - see above Qualifiers: Malnutrition type: protein-calorie malnutrition Protein-calorie malnutrition severity: unspecified severity Qualified Code(s): E46 - Unspecified protein-calorie malnutrition (6) DVT prophylaxis Current Visit: Yes Status: Acute Heparin sq and scd Subjective Patient reports: pain is less (tight feeling), no bowel movement, afebrile, other (burning acid pain and incrased burping) Objective Vital Signs - Last 8 Hours Temp Pulse Resp BP Pulse Ox 09/13/18 06:19 98.2 F 104 18 126/78 91 09/13/18 03:04 98.0 F 96 16 136/91 91 Intake and Output 09/12/18 09/12/18 09/13/18 15:59 23:59 07:59 Intake Total 1000 / 1000 1210 / 1210 0 / 0 Output Total 350 / 350 0 / 0 Balance 1000 / 1000 860 / 860 0 / 0 Intake: IV Fluids 1000 / 1000 1000 / 1000 0.9 % Sodium Chloride 1,000 ML 1000 / 1000 1000 / 1000 @ 125 mls/hr IVC .Q8H [facility] Rx#: [id number] Oral 0 / 0 0 / 0 Free Water 100 / 100 Free Water Intake Amount 110 / 110 Output: Urine 350 / 350 0 / 0 Other: Meal Breakfast Percent of Meal Consumed 0% Weight 95 kg Blood Glucose* 102 108 Patient Weight 09/13/18 23:59 Weight 95 kg - General physical appearance well developed, well nourished, no distress - Eyes normal ocular movement - ENT normal pinna, normal nares, normal mucosa - Respiratory normal expansion, normal respiratory effort, clear to auscultation - Cardiovascular Cardiovascular exam: Present: RRR, no murmurs/rubs/gallops - Abdomen Abdomen: Present: bowel sounds present, soft. Absent: guarding, rebound Abdominal Tenderness: diffusely Hernia: none - Incision Incision: Present: red (dried blood), approximated. Absent: draining, clean and dry, erythema - Integumentary no rash, no growths, no abnormal pigmentation - Neurologic CN 2-12 grossly intact, normal coordination, normal sensation - Musculoskeletal normal gait (at baseline), normal posture - Psychiatric oriented to time, oriented to person, oriented to place, speech is normal, memory intact - Labs 09/13/18 03:30 09/10/18 03:15 Consult Discharge Plan - Plan Referrals: [facility] [Outside] <Ismael Mccarthy - Last Filed: 09/14/18 07:23> Date of Encounter: 09/13/18 - Assessment and Plan (1) Esophageal carcinoma Current Visit: Yes Status: Acute Objective Vital Signs - Last 8 Hours Temp Pulse Resp BP Pulse Ox 09/14/18 04:15 97.8 F 97 17 142/92 93 09/14/18 00:18 98.1 F 101 20 124/85 92 Intake and Output 09/13/18 09/13/18 09/14/18 15:59 23:59 07:59 Intake Total 80 / 80 900 / 900 1000 / 1000 Output Total 225 / 225 60 / 60 Balance -145 / -145 840 / 840 1000 / 1000 Intake: IV Fluids 900 / 900 1000 / 1000 0.9 % Sodium Chloride 1,000 ML 900 / 900 1000 / 1000 @ 125 mls/hr IVC .Q8H [facility] Rx#: [id number] Oral 60 / 60 Free Water Intake Amount 20 / 20 Output: Urine 225 / 225 Gastric Drainage 60 / 60 Other: Meal Lunch Dinner Percent of Meal Consumed 0% 0% - Labs 09/14/18 03:57 09/14/18 03:57 Diabetes panel 09/14/18 Range/Units 03:57 Sodium 137 (136-145) mEq/L Potassium 3.7 (3.5-5.1) mEq/L Chloride 108 H (98-107) mEq/L Carbon Dioxide 22 L (23-29) mEq/L BUN 27 H (6-20) mg/dL Creatinine 0.58 L (0.70-1.30) mg/dL Glucose 105 (70-105) mg/dL Calcium 8.4 L (8.6-10.3) mg/dL AST 13 (13-39) Units/L ALT 13 (7-52) Units/L Alkaline Phosphatase 40 (34-104) Units/L Albumin 2.8 L (3.5-5.7) g/dL Calcium panel 09/14/18 Range/Units 03:57 Calcium 8.4 L (8.6-10.3) mg/dL Albumin 2.8 L (3.5-5.7) g/dL Pituitary panel 09/14/18 Range/Units 03:57 Sodium 137 (136-145) mEq/L Potassium 3.7 (3.5-5.1) mEq/L Chloride 108 H (98-107) mEq/L Carbon Dioxide 22 L (23-29) mEq/L BUN 27 H (6-20) mg/dL Creatinine 0.58 L (0.70-1.30) mg/dL Glucose 105 (70-105) mg/dL Calcium 8.4 L (8.6-10.3) mg/dL Adrenal panel 09/14/18 Range/Units 03:57 Sodium 137 (136-145) mEq/L Potassium 3.7 (3.5-5.1) mEq/L Chloride 108 H (98-107) mEq/L Carbon Dioxide 22 L (23-29) mEq/L BUN 27 H (6-20) mg/dL Creatinine 0.58 L (0.70-1.30) mg/dL Glucose 105 (70-105) mg/dL Calcium 8.4 L (8.6-10.3) mg/dL Total Bilirubin 0.9 (0.3-1.0) mg/dL AST 13 (13-39) Units/L ALT 13 (7-52) Units/L Alkaline Phosphatase 40 (34-104) Units/L Albumin 2.8 L (3.5-5.7) g/dL - Attending Attestation patient seen and examined. i have reviewed all labs, imaging, vitals, and notes. I discussed the patient and post operative outcomes with resident. i agree with the above assessment and plan
[2018-09-13] MEDS: Ondansetron 4 MG/2 ML VIAL IVP PRN ×3 (09:10→20:57)
[2018-09-13] MEDS: Pantoprazole 40 MG VIAL IVP SCH (09:10)
[2018-09-13] MEDS: 0.9 % Sodium Chloride 1,000 ML IVC SCH ×2 (09:11→16:38)
[2018-09-14] MEDS: 0.9 % Sodium Chloride 1,000 ML IVC SCH (03:03)
[2018-09-14 04:20] LABS: Hemoglobin 10.7 g/dL (12.9-16.9)
[2018-09-14 04:22] LABS: Basophils % 1.1 %; Eosinophils % 1.6 %; Hematocrit 31.9 % (37.5-50.1); Immature Granulocytes % 1.1 % (0-4); Lymphocytes # 0.1 K/mcL (0.6-4.6); Lymphocytes % 7.7 %; Mean Corpuscular HGB Conc 33.5 g/dL (31.6-35.5); Mean Corpuscular Hemoglobin 29.5 pg (28.0-33.3); Mean Corpuscular Volume 87.9 fL (83.0-100.0); Mean Platelet Volume 9.9 fL (9.4-12.4); Monocytes # 0.5 K/mcL (0.0-1.3); Monocytes % 28.6 %; Neutrophils # 1.1 K/mcL (1.6-8.9); Platelet Count 118 K/mcL (140-400); Red Blood Count 3.63 M/mcL (4.19-5.50); Red Cell Distribution Width 13.1 % (11.5-14.5); Segmented Neutrophils % 59.9 %
[2018-09-14 04:42] LABS: Alanine Aminotransferase 13 Units/L (7-52); Albumin 2.8 g/dL (3.5-5.7); Alkaline Phosphatase 40 Units/L (34-104); Aspartate Amino Transferase 13 Units/L (13-39); BUN/Creatinine Ratio 47 (6-26); Bilirubin,Total 0.9 mg/dL (0.3-1.0); Blood Urea Nitrogen 27 mg/dL (6-20); Calcium 8.4 mg/dL (8.6-10.3); Carbon Dioxide 22 mEq/L (23-29); Chloride 108 mEq/L (98-107); Globulin 2.8 g/dL (2.4-3.5); Glucose 105 mg/dL (70-105); Osmolality,Calculated 289 (280-300); Potassium 3.7 mEq/L (3.5-5.1); Sodium 137 mEq/L (136-145); Total Protein 5.6 g/dL (6.4-8.9); eGFR For Non-African Americans > 60 (> 60)
[2018-09-14 05:00] LABS: Platelet Estimate Slight Decrease (Normal)
[2018-09-14] MEDS: Ketorolac 15 MG/ML VIAL IVP PRN (06:40)
[2018-09-14] MEDS: *HR* Heparin 5,000 UNIT/ML VIAL SQ SCH ×2 (06:40→17:40)
[2018-09-14] MEDS ORDERED: Methylnaltrexone 12 MG/0.6 ML SYRINGE SQ ONE (07:06)
--- NOTE | 2018-09-14 07:12 | General Surgery Progress Note ---
<Meghann Smith - Last Filed: 09/14/18 07:10> Date of Encounter: 09/14/18 Time of Encounter: 07:10 - Assessment and Plan (1) Esophageal carcinoma Current Visit: Yes Status: Acute POD 4 feeding jejunostomy tube placement with Dr Mccarthy, for chronic dysphasia due to mass and weight loss, still not able to tolerate tube feeds. Ilues noted on imaging on 09-12 - start mineral oil by J tube once - serial abdominal exams - supportive care and pain management - continue IVFs - continue GI prophylaxes - up to chair and ambulate freely tid - continue routine J peg care; do not needs to check residuals, flush per new order Social work consulted for discharge planning as will need home health for j tube care; thank your for arranging home health with [facility] approval - start clears and insure clears as tolerated - Nutrition consulted and nightly feeding schedule started at slow rate of 10- hold until clinically improved and return of bowel function - may consider starting TPN tomorrow as patient is chronic malnourished (2) Ileus, postoperative Current Visit: Yes Status: Acute see above (3) Jejunostomy tube site pain Current Visit: Yes Status: Acute see above (4) COPD (chronic obstructive pulmonary disease) Current Visit: Yes Status: Acute No signs of exacerbation - duonebs PRN Qualifiers: COPD type: unspecified COPD Qualified Code(s): J44.9 - Chronic obstructive pulmonary disease, unspecified (5) Malnutrition Current Visit: Yes Status: Chronic Nutrition consulted - see above Qualifiers: Malnutrition type: protein-calorie malnutrition Protein-calorie malnutrition severity: unspecified severity Qualified Code(s): E46 - Unspecified protein-calorie malnutrition (6) DVT prophylaxis Current Visit: Yes Status: Acute Heparin sq and scd Subjective Patient reports: still having pain, flatus, no bowel movement, nausea, vomiting , afebrile Narrative: He was not able tolerate tube feeds overnight due to increased abdominal pain and nausea. Pain remains tight feeling. He is not tolerating clears by mouth and vomited. Objective Vital Signs - Last 8 Hours Temp Pulse Resp BP Pulse Ox 09/14/18 04:15 97.8 F 97 17 142/92 93 09/14/18 00:18 98.1 F 101 20 124/85 92 Intake and Output 09/13/18 09/13/18 09/14/18 15:59 23:59 07:59 Intake Total 80 / 80 900 / 900 1000 / 1000 Output Total 225 / 225 60 / 60 Balance -145 / -145 840 / 840 1000 / 1000 Intake: IV Fluids 900 / 900 1000 / 1000 0.9 % Sodium Chloride 1,000 ML 900 / 900 1000 / 1000 @ 125 mls/hr IVC .Q8H [facility] Rx#: [id number] Oral 60 / 60 Free Water Intake Amount Output: Urine 225 / 225 Gastric Drainage 60 Other: Meal Lunch Dinner Percent of Meal Consumed 0% 0% - General physical appearance well developed, well nourished, moderate distress, moderate pain - ENT normal pinna, normal nares - Respiratory normal expansion, normal respiratory effort, clear to auscultation - Cardiovascular Cardiovascular exam: Present: RRR, no murmurs/rubs/gallops - Abdomen Abdomen: Present: bowel sounds present (decreased), soft, tender Abdominal Tenderness: RUQ (worse), diffusely (very tender) Hernia: none - Incision Incision: Present: clean and dry, approximated. Absent: draining, swollen, inflamed - Integumentary no rash, no growths, no abnormal pigmentation, other (diaphoresis) - Neurologic CN 2-12 grossly intact, normal coordination, normal sensation - Musculoskeletal normal gait, normal posture, other (amputated right LE below knee) - Psychiatric oriented to time, oriented to person, oriented to place, speech is normal - Labs 09/14/18 03:57 09/14/18 03:57 Diabetes panel 09/14/18 Range/Units 03:57 Sodium 137 (136-145) mEq/L Potassium 3.7 (3.5-5.1) mEq/L Chloride 108 H (98-107) mEq/L Carbon Dioxide 22 L (23-29) mEq/L BUN 27 H (6-20) mg/dL Creatinine 0.58 L (0.70-1.30) mg/dL Glucose 105 (70-105) mg/dL Calcium 8.4 L (8.6-10.3) mg/dL AST 13 (13-39) Units/L ALT 13 (7-52) Units/L Alkaline Phosphatase 40 (34-104) Units/L Albumin 2.8 L (3.5-5.7) g/dL Calcium panel 09/14/18 Range/Units 03:57 Calcium 8.4 L (8.6-10.3) mg/dL Albumin 2.8 L (3.5-5.7) g/dL Pituitary panel 09/14/18 Range/Units 03:57 Sodium 137 (136-145) mEq/L Potassium 3.7 (3.5-5.1) mEq/L Chloride 108 H (98-107) mEq/L Carbon Dioxide 22 L (23-29) mEq/L BUN 27 H (6-20) mg/dL Creatinine 0.58 L (0.70-1.30) mg/dL Glucose 105 (70-105) mg/dL Calcium 8.4 L (8.6-10.3) mg/dL Adrenal panel 09/14/18 Range/Units 03:57 Sodium 137 (136-145) mEq/L Potassium 3.7 (3.5-5.1) mEq/L Chloride 108 H (98-107) mEq/L Carbon Dioxide 22 L (23-29) mEq/L BUN 27 H (6-20) mg/dL Creatinine 0.58 L (0.70-1.30) mg/dL Glucose 105 (70-105) mg/dL Calcium 8.4 L (8.6-10.3) mg/dL Total Bilirubin 0.9 (0.3-1.0) mg/dL AST 13 (13-39) Units/L ALT 13 (7-52) Units/L Alkaline Phosphatase 40 (34-104) Units/L Albumin 2.8 L (3.5-5.7) g/dL Consult Discharge Plan - Plan Referrals: [facility] [Outside] <Ismael Mccarthy - Last Filed: 09/14/18 07:27> Date of Encounter: 09/14/18 - Assessment and Plan (1) Esophageal carcinoma Current Visit: Yes Status: Acute Objective Vital Signs - Last 8 Hours Temp Pulse Resp BP Pulse Ox 09/14/18 04:15 97.8 F 97 17 142/92 93 09/14/18 00:18 98.1 F 101 20 124/85 92 Intake and Output 09/13/18 09/13/18 09/14/18 15:59 23:59 07:59 Intake Total 80 / 80 900 / 900 1000 / 1000 Output Total 225 / 225 60 / 60 Balance -145 / -145 840 / 840 1000 / 1000 Intake: IV Fluids 900 / 900 1000 / 1000 0.9 % Sodium Chloride 1,000 ML 900 / 900 1000 / 1000 @ 125 mls/hr IVC .Q8H [facility] Rx#: [id number] Oral 60 60 Free Water Intake Amount Output: Urine 225 / 225 Gastric Drainage 60 / 60 Other: Meal Lunch Dinner Percent of Meal Consumed 0% 0% - Labs 09/14/18 03:57 09/14/18 03:57 Diabetes panel 09/14/18 Range/Units 03:57 Sodium 137 (136-145) mEq/L Potassium 3.7 (3.5-5.1) mEq/L Chloride 108 H (98-107) mEq/L Carbon Dioxide 22 L (23-29) mEq/L BUN 27 H (6-20) mg/dL Creatinine 0.58 L (0.70-1.30) mg/dL Glucose 105 (70-105) mg/dL Calcium 8.4 L (8.6-10.3) mg/dL AST 13 (13-39) Units/L ALT 13 (7-52) Units/L Alkaline Phosphatase 40 (34-104) Units/L Albumin 2.8 L (3.5-5.7) g/dL Calcium panel 09/14/18 Range/Units 03:57 Calcium 8.4 L (8.6-10.3) mg/dL Albumin 2.8 L (3.5-5.7) g/dL Pituitary panel 09/14/18 Range/Units 03:57 Sodium 137 (136-145) mEq/L Potassium 3.7 (3.5-5.1) mEq/L Chloride 108 H (98-107) mEq/L Carbon Dioxide 22 L (23-29) mEq/L BUN 27 H (6-20) mg/dL Creatinine 0.58 L (0.70-1.30) mg/dL Glucose 105 (70-105) mg/dL Calcium 8.4 L (8.6-10.3) mg/dL Adrenal panel 09/14/18 Range/Units 03:57 Sodium 137 (136-145) mEq/L Potassium 3.7 (3.5-5.1) mEq/L Chloride 108 H (98-107) mEq/L Carbon Dioxide 22 L (23-29) mEq/L BUN 27 H (6-20) mg/dL Creatinine 0.58 L (0.70-1.30) mg/dL Glucose 105 (70-105) mg/dL Calcium 8.4 L (8.6-10.3) mg/dL Total Bilirubin 0.9 (0.3-1.0) mg/dL AST 13 (13-39) Units/L ALT 13 (7-52) Units/L Alkaline Phosphatase 40 (34-104) Units/L Albumin 2.8 L (3.5-5.7) g/dL - Attending Attestation patient seen and examined. i have reviewed all labs, imaging, and notes. i agree with the above assessment and plan and wish to add the following... POD#4 s/p open feeding jejunostomy placement now with post operative ileus; having flatus, feels as if he will have bowel movement; unable to tolerate feeds for prolonged period; distended; non peritoneal; AF; mildly tachycardic cont with current pain regimen activity as tolerated okay to continue neoadjuvant therapy hold TF; await return of bowel function/improvement in abdominal exam abd xray today: 2 views likely will plan for TPN in [place] IV protonix PO as tolerated
[2018-09-14] MEDS: Pantoprazole 40 MG VIAL IVP SCH (09:19)
[2018-09-14] MEDS: D5% in 0.45% NACL w KCl 20 MEQ/1,000 ML MLS IVC SCH ×2 (09:19→17:35)
[2018-09-14] MEDS: Bisacodyl 10 MG RECTAL SUPPOSITORY RC SCH (09:19)
[2018-09-14 09:24] LABS: Magnesium 1.7 mg/dL (1.6-2.6); Phosphorous 2.8 mg/dL (2.7-4.5); Triglycerides 108 mg/dL (< 150)
[2018-09-14] MEDS ORDERED: *HR* Promethazine 25 MG/ML VIAL IVP PRN (11:15)
[2018-09-14] MEDS ORDERED: D10% in Water 500 ML IVC PRN (11:25)
[2018-09-14] MEDS: Ketorolac 30 MG/ML VIAL IVP PRN ×2 (12:54→20:18)
[2018-09-14] MEDS ORDERED: Clinimix E 5%-20% SOLUTION 2,000 ML with MVI, adult with vitamin K 10 ML IVC SCH (17:00)
[2018-09-15] MEDS: Ondansetron 4 MG/2 ML VIAL IVP PRN ×3 (03:07→19:53)
[2018-09-15] MEDS: Ketorolac 30 MG/ML VIAL IVP PRN ×3 (03:07→16:56)
[2018-09-15 04:12] LABS: Basophils % 0.4 %; Eosinophils % 1.2 %; Hematocrit 30.9 % (37.5-50.1); Hemoglobin 10.7 g/dL (12.9-16.9); Immature Granulocytes % 0.4 % (0-4); Lymphocytes # 0.2 K/mcL (0.6-4.6); Lymphocytes % 6.8 %; Mean Corpuscular HGB Conc 34.6 g/dL (31.6-35.5); Mean Corpuscular Hemoglobin 30.1 pg (28.0-33.3); Mean Corpuscular Volume 86.8 fL (83.0-100.0); Mean Platelet Volume 9.8 fL (9.4-12.4); Monocytes # 0.7 K/mcL (0.0-1.3); Monocytes % 26.3 %; Neutrophils # 1.6 K/mcL (1.6-8.9); Platelet Count 132 K/mcL (140-400); Red Blood Count 3.56 M/mcL (4.19-5.50); Red Cell Distribution Width 13.4 % (11.5-14.5); Segmented Neutrophils % 64.9 %
[2018-09-15 04:31] LABS: Platelet Estimate Slight Decrease (Normal); Polychromasia 1+ (Not Present)
[2018-09-15 04:35] LABS: BUN/Creatinine Ratio 46 (6-26); Blood Urea Nitrogen 26 mg/dL (6-20); Calcium 8.8 mg/dL (8.6-10.3); Carbon Dioxide 24 mEq/L (23-29); Chloride 107 mEq/L (98-107); Glucose 123 mg/dL (70-105); Magnesium 1.8 mg/dL (1.6-2.6); Osmolality,Calculated 294 (280-300); Phosphorous 2.9 mg/dL (2.7-4.5); Potassium 3.6 mEq/L (3.5-5.1); Sodium 139 mEq/L (136-145); eGFR For Non-African Americans > 60 (> 60)
[2018-09-15] MEDS: *HR* Heparin 5,000 UNIT/ML VIAL SQ SCH ×2 (05:45→16:56)
--- NOTE | 2018-09-15 07:39 | General Surgery Progress Note ---
Addendum entered and electronically signed by Meghann Smith 09/15/18 18:20: I agree with dietary assessment that states Severe Protein Calorie Malnutrition due to chronic illness Original Note: <Meghann Smith - Last Filed: 09/15/18 18:17> Date of Encounter: 09/15/18 Time of Encounter: 07:37 - Assessment and Plan (1) Esophageal carcinoma Current Visit: Yes Status: Acute POD5 feeding jejunostomy tube placement with Dr Mccarthy, post op ileus but vomiting despite NPO and no tube feeds - serial abdominal exams - supportive care and pain management, increased Toradol yesterday - continue IVFs - continue GI prophylaxes - up to chair and ambulate freely tid - continue routine J peg care; do not needs to check residuals, flush per new order - NPO and TPN, hold tube feedings - nutrition consulted - okay to increase TPN - XR upper GI with SBFT, gastrographin oral minimum volume needed due to our concern for obstruction proximal to j peg Social work consulted for discharge planning as will need home health for j tube care; thank you for arranging home health with [facility] approval (2) Ileus, postoperative Current Visit: Yes Status: Acute see above (3) Jejunostomy tube site pain Current Visit: Yes Status: Acute see above (4) COPD (chronic obstructive pulmonary disease) Current Visit: Yes Status: Acute No signs of exacerbation - duonebs PRN Qualifiers: COPD type: unspecified COPD Qualified Code(s): J44.9 - Chronic obstructive pulmonary disease, unspecified (5) Malnutrition Current Visit: Yes Status: Chronic Nutrition consulted - see above Qualifiers: Malnutrition type: protein-calorie malnutrition Protein-calorie malnutrition severity: unspecified severity Qualified Code(s): E46 - Unspecified protein-calorie malnutrition (6) DVT prophylaxis Current Visit: Yes Status: Acute Heparin sq and scd Subjective Patient reports: still having pain, no flatus, bowel movement, vomiting (while NPO), afebrile Objective Vital Signs - Last 8 Hours Temp Pulse Resp BP Pulse Ox 09/15/18 07:17 97.7 F 96 16 116/79 93 09/15/18 04:32 97.9 F 99 16 113/73 93 09/14/18 23:57 98.2 F 101 16 115/77 Intake and Output 09/14/18 09/14/18 09/15/18 15:59 23:59 07:59 Intake Total 120 / 120 1000 / 1000 0 / 0 Output Total 200 / 200 Balance 120 / 120 1000 / 1000 -200 / -200 Intake: IV Fluids 1000 / 1000 KCl 20mEq IN D5%-0.45 NACL 20 1000 / 1000 meq In 1,000 ml @ 125 mls/hr IVC .Q8H [facility] Rx#:[id number] Oral 120 / 120 0 / 0 Output: Urine 200 / 200 Other: # Voids 2 # Bowel Movements 0 Weight 96.7 kg Blood Glucose* 155 149 Patient Weight 09/15/18 23:59 Weight 96.7 kg - General physical appearance well developed, well nourished, moderate distress - Eyes normal ocular movement - ENT normal pinna, normal nares, no hearing loss - Respiratory normal expansion, normal respiratory effort, clear to auscultation - Cardiovascular Cardiovascular exam: Present: RRR, no murmurs/rubs/gallops - Abdomen Abdomen: Present: bowel sounds present (minimal), soft, distended (increased). Absent: guarding, rebound Abdominal Tenderness: diffusely - Incision Incision: Present: clean and dry, approximated. Absent: draining, inflamed, erythema - Integumentary no rash, no growths, no abnormal pigmentation - Neurologic CN 2-12 grossly intact, normal coordination, normal sensation - Musculoskeletal normal posture, other (amputated) - Psychiatric oriented to time, oriented to person, oriented to place, speech is normal, memory intact - Labs 09/15/18 03:40 09/15/18 03:40 Diabetes panel 09/14/18 09/15/18 Range/Units 03:57 03:40 Sodium 137 139 (136-145) mEq/L Potassium 3.7 3.6 (3.5-5.1) mEq/L Chloride 108 H 107 (98-107) mEq/L Carbon Dioxide 22 L 24 (23-29) mEq/L BUN 27 H 26 H (6-20) mg/dL Creatinine 0.58 L 0.56 L (0.70-1.30) mg/dL Glucose 105 123 H (70-105) mg/dL Calcium 8.4 L 8.8 (8.6-10.3) mg/dL AST 13 (13-39) Units/L ALT 13 (7-52) Units/L Alkaline Phosphatase 40 (34-104) Units/L Albumin 2.8 L (3.5-5.7) g/dL Triglycerides 108 (< 150) mg/dL Calcium panel 09/14/18 09/15/18 Range/Units 03:57 03:40 Calcium 8.4 L 8.8 (8.6-10.3) mg/dL Phosphorus 2.8 2.9 (2.7-4.5) mg/dL Albumin 2.8 L (3.5-5.7) g/dL Pituitary panel 09/14/18 09/15/18 Range/Units 03:57 03:40 Sodium 137 139 (136-145) mEq/L Potassium 3.7 3.6 (3.5-5.1) mEq/L Chloride 108 H 107 (98-107) mEq/L Carbon Dioxide 22 L 24 (23-29) mEq/L BUN 27 H 26 H (6-20) mg/dL Creatinine 0.58 L 0.56 L (0.70-1.30) mg/dL Glucose 105 123 H (70-105) mg/dL Calcium 8.4 L 8.8 (8.6-10.3) mg/dL Adrenal panel 09/14/18 09/15/18 Range/Units 03:57 03:40 Sodium 137 139 (136-145) mEq/L Potassium 3.7 3.6 (3.5-5.1) mEq/L Chloride 108 H 107 (98-107) mEq/L Carbon Dioxide 22 L 24 (23-29) mEq/L BUN 27 H 26 H (6-20) mg/dL Creatinine 0.58 L 0.56 L (0.70-1.30) mg/dL Glucose 105 123 H (70-105) mg/dL Calcium 8.4 L 8.8 (8.6-10.3) mg/dL Total Bilirubin 0.9 (0.3-1.0) mg/dL AST 13 (13-39) Units/L ALT 13 (7-52) Units/L Alkaline Phosphatase 40 (34-104) Units/L Albumin 2.8 L (3.5-5.7) g/dL Consult Discharge Plan - Plan Referrals: [facility] [Outside] <Ismael Mccarthy - Last Filed: 09/15/18 22:46> Date of Encounter: 09/15/18 - Assessment and Plan (1) Esophageal carcinoma Current Visit: Yes Status: Acute Objective Vital Signs - Last 8 Hours Temp Pulse Resp BP Pulse Ox 09/15/18 19:53 97.4 F L 108 14 135/88 92 09/15/18 16:34 98.2 F 110 16 108/77 97 Intake and Output 09/15/18 09/15/18 09/15/18 07:59 15:59 23:59 Intake Total 1000 / 1000 0 / 0 0 / 0 Output Total 200 / 200 0 / 0 Balance 800 / 800 0 / 0 0 / 0 Intake: IV Fluids 1000 / 1000 KCl 20mEq IN D5%-0.45 NACL 20 1000 / 1000 meq In 1,000 ml @ 125 mls/hr IVC .Q8H [facility] Rx#:[id number] Oral 0 / 0 0 / 0 0 / 0 Output: Urine 200 / 200 0 / 0 Other: Stool Size Moderate Stool Consistency loose liquid Stool Color Brown Kevin Colored # Voids 1 # Bowel Movements 0 1 Weight 96.7 kg Blood Glucose* 149 150 113 Patient Weight 09/15/18 23:59 Weight 96.7 kg - Labs 09/15/18 03:40 09/15/18 03:40 Diabetes panel 09/15/18 Range/Units 03:40 Sodium 139 (136-145) mEq/L Potassium 3.6 (3.5-5.1) mEq/L Chloride 107 (98-107) mEq/L Carbon Dioxide 24 (23-29) mEq/L BUN 26 H (6-20) mg/dL Creatinine 0.56 L (0.70-1.30) mg/dL Glucose 123 H (70-105) mg/dL Calcium 8.8 (8.6-10.3) mg/dL Calcium panel 09/15/18 Range/Units 03:40 Calcium 8.8 (8.6-10.3) mg/dL Phosphorus 2.9 (2.7-4.5) mg/dL Pituitary panel 09/15/18 Range/Units 03:40 Sodium 139 (136-145) mEq/L Potassium 3.6 (3.5-5.1) mEq/L Chloride 107 (98-107) mEq/L Carbon Dioxide 24 (23-29) mEq/L BUN 26 H (6-20) mg/dL Creatinine 0.56 L (0.70-1.30) mg/dL Glucose 123 H (70-105) mg/dL Calcium 8.8 (8.6-10.3) mg/dL Adrenal panel 09/15/18 Range/Units 03:40 Sodium 139 (136-145) mEq/L Potassium 3.6 (3.5-5.1) mEq/L Chloride 107 (98-107) mEq/L Carbon Dioxide 24 (23-29) mEq/L BUN 26 H (6-20) mg/dL Creatinine 0.56 L (0.70-1.30) mg/dL Glucose 123 H (70-105) mg/dL Calcium 8.8 (8.6-10.3) mg/dL - Attending Attestation patient seen and examined. i have reviewed all labs, imaging, and notes. I agree with the above assessment and plan and wish to add the following... 53M POD #5 s/p open feeding jejunostomy in petra fashion. Patient began to have bilious vomiting, decrease bowel function, and increased abdominal distension. CT scan was demonstrating a picture consistent with an ileus, but there was unexplained mesenteric congestion, increased free fluid and no contrast past the jejunostomy. i was concerned for obstruction at the site of his feeding tube. The decision was made to take the patient to the operating room.
[2018-09-15] MEDS: D5% in 0.45% NACL w KCl 20 MEQ/1,000 ML MLS IVC SCH ×2 (08:54→19:38)
[2018-09-15] MEDS: Pantoprazole 40 MG VIAL IVP SCH (08:54)
[2018-09-15] MEDS: Bisacodyl 10 MG RECTAL SUPPOSITORY RC SCH (08:55)
[2018-09-15] MEDS ORDERED: Clinimix E 5%-20% SOLUTION 2,000 ML with MVI, adult with vitamin K 10 ML IVC SCH ×2 (17:00→23:17)
[2018-09-15] MEDS ORDERED: Isovue-370 500 ML INFUS..BTL IV ONE (18:20)
--- NOTE | 2018-09-15 19:26 | Oncology Inp Consult Note ---
<ZacWendy L - Last Filed: 09/16/18 16:10> Date of Encounter: 09/16/18 Time of Encounter: 14:00 Assessment and Plan (1) Esophageal carcinoma Status: Acute Assessment and plan: Concurrent chemoradiation cycle 1 carbotaxol on 08/24/2018 Oncology would recommend against esophageal stenting in presence of esophageal adenocarcinoma while patient is in active chemoradiation His dysphagia is secondary to known esophageal carcinoma J PEG placed on 09/10 secondary to weight loss and decreased oral intake as patient continues with concurrent chemoradiation He had complications following his procedure with postop ileus and vomiting with tube feedings He underwent exploratory laparotomy, detorsion of small bowel, small bowel resection with stapled anastamosis, repair of intraoperative itragenic enterotomy, revision of feeding jejunostomy, planning to re-initiate tube feedings tomorrow Dependant upon his recovery and tolerance of feedings will re-evaluate on Thursday if patient is still in house for clearance for radiation treatment Chemotherapy may need to be delayed with his recent small bowel resection 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 PR EGD showed a mass in the lower third of the esophagus with biopsy positive for adenocarcinoma. He started concurrent chemoradiation cycle 1 carbotaxol on 08/24/2018. Following treatment he would like to be referred to [facility] for esophagectomy. He presented for J-tube placement secondary to decreased oral intake. J-PEG placed on 09/10/2018. This was complicated by post op ileus and intolerable tube feedings with vomiting. on 09/15/2018 he underwent exploratory laparotomy, detorsion of small bowel, small bowel resection with stapled anastamosis, repair of intraoperative itragenic enterotomy, revision of feeding jejunostomy. Past Med Surg Social Fam HX - Past Medical History Medical history: arthritis, cancer, COPD, hyperlipidemia, other Additional medical history: sleep apnea, esophageal cancer Psychiatric history: PTSD - Past Surgical History Surgical History: other Additional surgical history: colonoscopy,. Right BKA - Social History Smoking Status: Former smoker Smokeless Tobacco Status: No Alcohol use: none Drug use: none - Family History Brother Living Status: Hx Family Cardiac Disorders: Yes Father Living Status: Hx Family Cardiac Disorders: No Hx Family Respiratory Disorders: No Hx Family Cancer: Yes (liver) Hx Family GI Disorders: No Hx Family Endocrine Disorder: No Hx Family Neuromuscular Disorders: No Hx Family Neurologic Disorders: No Hx Family HEENT Disorders: No Hx Family Autoimmune Disorders: No Maternal Grandmother Living Status: Hx Family Cardiac Disorders: Yes ([place]) Hx Family Respiratory Disorders: No Hx Family Cancer: No Hx Family GI Disorders: No Hx Family Endocrine Disorder: No Hx Family Neuromuscular Disorders: No Hx Family Neurologic Disorders: No Hx Family HEENT Disorders: No Hx Family Autoimmune Disorders: No Mother Living Status: Still Living Hx Family Cancer: Yes Medications and Allergies RX: No Known Home Drugs 09/09/18 [History] Allergy/AdvReac Type Severity Reaction Status Date / Time No Known Allergies Allergy Verified 09/07/18 08:18 Constitutional: Present: anorexia, fatigue, weakness, weight loss. Absent: chills, fever(s) Eyes: Absent: change in vision Nose, mouth and throat: Present: dysphagia, mouth lesions, mouth pain. Absent: odynophagia Cardiovascular: Absent: chest pain Respiratory: Absent: cough, dyspnea Gastrointestinal: Present: abdominal pain, dysphagia, nausea, vomiting. Absent: hematemesis, hematochezia, melena, odynophagia Additional comments: denies dysuria Musculoskeletal: Present: muscle weakness Integumentary: Absent: wounds Neurological: Absent: focal weakness Hematologic/Lymphatic: Present: as per HPI Oncology - Exam - Constitutional Vitals: Temp Pulse Resp BP Pulse Ox 98.2 F 110 16 108/77 97 09/15/18 16:34 09/15/18 16:34 09/15/18 16:34 09/15/18 16:34 09/15/18 16:34 General appearance: cooperative, no acute distress, no febrile - Head Head exam: Present: atraumatic - ENT Additional comments: white plaques noted to tongue - Respiratory Respiratory exam: Present: CTAB. Absent: respiratory distress - Cardiovascular Cardiovascular exam: Present: RRR, +S1, +S2 - GI/Abdominal GI/Abdominal exam: Present: hypoactive bowel sounds, soft Additional comments: post operative tenderness as expected, midline abdominal dressing with J PEG tube present - Extremities Exam Extremities exam: Absent: calf tenderness - Neurological Exam Neurological exam: Present: alert, oriented X3, no focal deficits, strengths equal and symetr throughout - Psychiatric Psychiatric exam: Present: normal affect, normal mood - Skin Skin exam: Present: dry, intact, normal color, warm Oncology - Results Labs: Consult Discharge Plan - Plan Referrals: [facility] [Outside] <Johnathan Gonzalez S - Last Filed: 09/17/18 17:34> - Data of Consult Requesting Physician: Ismael Mccarthy MD Primary Care Provider: PCP [facility] - Consult Narrative History of present illness: Mr. Armijo is a 53 year old male Oncology - Exam - Constitutional Vitals: Temp Pulse Resp BP Pulse Ox 99.4 F 118 18 123/86 92 09/15/18 23:25 09/15/18 23:25 09/15/18 23:25 09/15/18 23:25 09/15/18 23:25 Oncology - Results Labs: 09/16/18 09/16/18 09/16/18 13:50 13:50 13:50 WBC 4.7 D RBC 3.50 L Hgb 10.3 L Hct 31.1 L MCV 88.9 MCH 29.4 MCHC 33.1 RDW 14.2 Plt Count 117 L MPV 9.3 L Immature Gran % Seg Neutrophils % Lymphocytes % Monocytes % Eosinophils % Basophils % Neutrophils # Lymphocytes # Monocytes # Eosinophils # Basophils # Platelet Estimate Polychromasia PT INR APTT Sodium 140 Potassium 3.7 Chloride 110 H Carbon Dioxide 26 BUN 23 H Creatinine 0.62 L Est GFR ( Amer) > 60 Est GFR (Non-Af Amer) > 60 BUN/Creatinine Ratio 37 H Glucose 111 H POC Glucose Calculated Osmolality 294 Lactic Acid 1.1 Calcium 8.4 L Phosphorus Magnesium Total Bilirubin 1.1 H AST 17 ALT 27 Alkaline Phosphatase 37 Serum Total Protein 5.4 L Albumin 2.8 L Globulin 2.6 Albumin/Globulin Ratio 1.1 Triglycerides 09/15/18 09/15/18 09/15/18 16:10 11:05 07:15 WBC RBC Hgb Hct MCV MCH MCHC RDW Plt Count MPV Immature Gran % Seg Neutrophils % Lymphocytes % Monocytes % Eosinophils % Basophils % Neutrophils # Lymphocytes # Monocytes # Eosinophils # Basophils # Platelet Estimate Polychromasia PT INR APTT Sodium Potassium Chloride Carbon Dioxide BUN Creatinine Est GFR ( Amer) Est GFR (Non-Af Amer) BUN/Creatinine Ratio Glucose POC Glucose 144 H 150 H 149 H Calculated Osmolality Lactic Acid Calcium Phosphorus Magnesium Total Bilirubin AST ALT Alkaline Phosphatase Serum Total Protein Albumin Globulin Albumin/Globulin Ratio Triglycerides 09/15/18 09/15/18 09/15/18 05:38 03:40 03:40 WBC 2.5 L RBC 3.56 L Hgb 10.7 L Hct 30.9 L MCV 86.8 MCH 30.1 MCHC 34.6 RDW 13.4 Plt Count 132 L MPV 9.8 Immature Gran % 0.4 Seg Neutrophils % 64.9 Lymphocytes % 6.8 Monocytes % 26.3 Eosinophils % 1.2 Basophils % 0.4 Neutrophils # 1.6 Lymphocytes # 0.2 L Monocytes # 0.7 Eosinophils # 0.0 Basophils # 0.0 Platelet Estimate Slight Decrease L Polychromasia 1+ A PT INR APTT Sodium 139 Potassium 3.6 Chloride 107 Carbon Dioxide 24 BUN 26 H Creatinine 0.56 L Est GFR ( Amer) > 60 Est GFR (Non-Af Amer) > 60 BUN/Creatinine Ratio 46 H Glucose 123 H POC Glucose 156 H Calculated Osmolality 294 Lactic Acid Calcium 8.8 Phosphorus 2.9 Magnesium 1.8 Total Bilirubin AST ALT Alkaline Phosphatase Serum Total Protein Albumin Globulin Albumin/Globulin Ratio Triglycerides 09/14/18 09/14/18 09/14/18 23:59 21:20 16:51 WBC RBC Hgb Hct MCV MCH MCHC RDW Plt Count MPV Immature Gran % Seg Neutrophils % Lymphocytes % Monocytes % Eosinophils % Basophils % Neutrophils # Lymphocytes # Monocytes # Eosinophils # Basophils # Platelet Estimate Polychromasia PT INR APTT Sodium Potassium Chloride Carbon Dioxide BUN Creatinine Est GFR ( Amer) Est GFR (Non-Af Amer) BUN/Creatinine Ratio Glucose POC Glucose 159 H 155 H 122 H Calculated Osmolality Lactic Acid Calcium Phosphorus Magnesium Total Bilirubin AST ALT Alkaline Phosphatase Serum Total Protein Albumin Globulin Albumin/Globulin Ratio Triglycerides 09/14/18 09/14/18 09/13/18 03:57 03:57 05:27 WBC 1.8 L RBC 3.63 L Hgb 10.7 L Hct 31.9 L MCV 87.9 MCH 29.5 MCHC 33.5 RDW 13.1 Plt Count 118 L MPV 9.9 Immature Gran % 1.1 Seg Neutrophils % 59.9 Lymphocytes % 7.7 Monocytes % 28.6 Eosinophils % 1.6 Basophils % 1.1 Neutrophils # 1.1 L Lymphocytes # 0.1 L Monocytes # 0.5 Eosinophils # 0.0 Basophils # 0.0 Platelet Estimate Slight Decrease L Polychromasia PT INR APTT Sodium 137 Potassium 3.7 Chloride 108 H Carbon Dioxide 22 L BUN 27 H Creatinine 0.58 L Est GFR ( Amer) > 60 Est GFR (Non-Af Amer) > 60 BUN/Creatinine Ratio 47 H Glucose 105 POC Glucose 108 H Calculated Osmolality 289 Lactic Acid Calcium 8.4 L Phosphorus 2.8 Magnesium 1.7 Total Bilirubin 0.9 AST 13 ALT 13 Alkaline Phosphatase 40 Serum Total Protein 5.6 L Albumin 2.8 L Globulin 2.8 Albumin/Globulin Ratio 1.0 L Triglycerides 108 09/13/18 09/12/18 09/10/18 03:30 23:16 17:00 WBC 2.1 L RBC 3.83 L Hgb 11.4 L Hct 33.3 L MCV 86.9 MCH 29.8 MCHC 34.2 RDW 12.9 Plt Count 113 L MPV 10.1 Immature Gran % Seg Neutrophils % 76.0 Lymphocytes % 8.0 Monocytes % 16.0 Eosinophils % Basophils % Neutrophils # 1.6 Lymphocytes # 0.2 L Monocytes # 0.3 Eosinophils # Basophils # Platelet Estimate Slight Decrease L Polychromasia PT INR APTT Sodium Potassium Chloride Carbon Dioxide BUN Creatinine Est GFR ( Amer) Est GFR (Non-Af Amer) BUN/Creatinine Ratio Glucose POC Glucose 102 H 95 Calculated Osmolality Lactic Acid Calcium Phosphorus Magnesium Total Bilirubin AST ALT Alkaline Phosphatase Serum Total Protein Albumin Globulin Albumin/Globulin Ratio Triglycerides 09/10/18 09/10/18 09/10/18 10:43 05:39 03:15 WBC RBC Hgb Hct MCV MCH MCHC RDW Plt Count MPV Immature Gran % Seg Neutrophils % Lymphocytes % Monocytes % Eosinophils % Basophils % Neutrophils # Lymphocytes # Monocytes # Eosinophils # Basophils # Platelet Estimate Polychromasia PT INR APTT Sodium 137 Potassium 4.0 Chloride 106 Carbon Dioxide 26 BUN 16 Creatinine 0.59 L Est GFR ( Amer) > 60 Est GFR (Non-Af Amer) > 60 BUN/Creatinine Ratio 27 H Glucose 93 POC Glucose 95 97 Calculated Osmolality 285 Lactic Acid Calcium 8.8 Phosphorus Magnesium Total Bilirubin AST ALT Alkaline Phosphatase Serum Total Protein Albumin Globulin Albumin/Globulin Ratio Triglycerides 09/10/18 09/09/18 09/09/18 03:15 16:50 16:50 WBC 3.1 L RBC 3.91 L Hgb 11.4 L Hct 33.5 L MCV 85.7 MCH 29.2 MCHC 34.0 RDW 12.6 Plt Count 125 L MPV 10.1 Immature Gran % 0.3 Seg Neutrophils % 73.7 Lymphocytes % 15.3 Monocytes % 7.8 Eosinophils % 2.6 Basophils % 0.3 Neutrophils # 2.3 Lymphocytes # 0.5 L Monocytes # 0.2 Eosinophils # 0.1 Basophils # 0.0 Platelet Estimate Polychromasia PT 11.1 INR 1.0 APTT 28.5 Sodium 135 L Potassium 4.2 Chloride 104 Carbon Dioxide 26 BUN 20 Creatinine 0.67 L Est GFR ( Amer) > 60 Est GFR (Non-Af Amer) > 60 BUN/Creatinine Ratio 30 H Glucose 81 POC Glucose Calculated Osmolality 282 Lactic Acid Calcium 9.8 Phosphorus Magnesium Total Bilirubin 0.5 AST 16 ALT 24 Alkaline Phosphatase 61 Serum Total Protein 7.2 Albumin 3.9 Globulin 3.3 Albumin/Globulin Ratio 1.2 Triglycerides 09/09/18 16:50 WBC 3.8 L RBC 4.17 L Hgb 12.4 L Hct 34.6 L MCV 83.0 MCH 29.7 MCHC 35.8 H RDW 12.8 Plt Count 152 MPV 10.3 Immature Gran % 0.3 Seg Neutrophils % 79.0 Lymphocytes % 10.9 Monocytes % 8.2 Eosinophils % 1.3 Basophils % 0.3 Neutrophils # 3.0 Lymphocytes # 0.4 L Monocytes # 0.3 Eosinophils # 0.1 Basophils # 0.0 Platelet Estimate Polychromasia PT INR APTT Sodium Potassium Chloride Carbon Dioxide BUN Creatinine Est GFR ( Amer) Est GFR (Non-Af Amer) BUN/Creatinine Ratio Glucose POC Glucose Calculated Osmolality Lactic Acid Calcium Phosphorus Magnesium Total Bilirubin AST ALT Alkaline Phosphatase Serum Total Protein Albumin Globulin Albumin/Globulin Ratio Triglycerides - Attending Attestation 1. GE junction adenocarcinoma. He is getting concurrent chemoradiation with weekly carbotaxol since 08/24/2018. He completed about 2000 cGy of about 5000 planned 2. He had feeding jejunostomy 09/10/2018. He had prolonged ileus. He had revision laparotomy with excision of report of small bowel and the T-tube jejunostomy 09/15/2018. 3. Discuss[address] with Dr. Pedraza. Currently no need for esophageal stenting. Patient is Currently Receiving TPN. Should be able to start J-tube feedings sewn Plan is to resume chemoradiation once he gets better 4. He has hiccups in some of the more bothersome with some discomfort. Discussed with surgery Cynthia Love. May benefit from IV Reglan Inpatient Charges Provider: Dr. Jeannette Gonzalez Consult - Inpatient: [id number]
--- NOTE | 2018-09-15 20:09 | Anesthesia Evaluation PreOp ---
Date of Encounter: 09/15/18 Time of Encounter: 20:07 - Past History Planned Operation: Revision of Jejunostomy Cardiac History: Hyperlipidemia Pulmonary History: Former smoker (quit 3.5 weeks ago, smoked for 40+ years), COPD FLOOR CARE TECHNICIAN History: Denies Any Significant HX Other Medical History: GERD Anesthesia History: No Prior Anesthetic Complications, Past Anesthesia Alcohol Use: none Drug use: none Medications and Allergies No Known Home Drugs 09/09/18 [History] 3 Allergy/AdvReac Type Severity Reaction Status Date / Time No Known Allergies Allergy Verified 09/07/18 08:18 - Meds/Allergy Pre-op Review Medications Reviewed: Yes Allergies Reviewed: Yes Beta Blockers on Current Med List: No Anesthesia Results - Labs 09/15/18 03:40 09/15/18 03:40 - Imaging EKG: report reviewed (09/10/2018 SINUS RHYTHM) Additional studies: 06/29/2017 Stress Impression: Perfusion imaging was negative for ischemia or infarct. Pharmacologic ECG was negative for ischemia at the level of heart rate achieved. Gated EF = 55%. 04/15/2016 Echo Impressions: LVEF 50-55%. Normal LV chamber size, wall thickness and function. Normal left ventricular diastolic function. Normal right ventricular structure and function. No evidence of pulmonary hypertension. No significant valvular dysfunction. Anesthesia Exam Vital Signs/O2 Sat/Glucose, Most Recent Temp Pulse Resp BP Pulse Ox 97.4 F L 108 14 135/88 92 09/15/18 19:53 09/15/18 19:53 09/15/18 19:53 09/15/18 19:53 09/15/18 19:53 Blood Glucose* 144 Height: 6'2"/1.88m Weight: 213 lbs/96.7 kg NPO (# of Hours): 8 Pain Scale: 7 (abdomen) Pain Scale Used: Numeric (1 - 10) - HEENT Pupil (Motor): EOMI Mallampati: II Teeth: Missing, Poor dentition Oral Opening: Greater than 3 - FLOOR CARE TECHNICIAN LOC: Oriented FLOOR CARE TECHNICIAN Motor: Normal RUE, Normal LUE, Normal LLE, Normal Face, Deficit RLE (Right BKA) FLOOR CARE TECHNICIAN Sensory: Normal: RUE, LUE, RLE, LLE, Face - Cardiac Rhythm: Regular Murmur: None - Pulmonary Breath Sounds: bilateral Clear Respiratory Effort: Symmetrical Anesthesia Assess/Plan ASA Score: 2 Modified Marcio Scale for Level of Consciousness: Cooperative, oriented, and tranquil Anesthetic Plan: General Monitoring Plan: Standard Monitors Recovery Plan: PACU
[2018-09-15] MEDS ORDERED: *HR* Cisatracurium 10 MG/5 ML VIAL IV ONE (20:21)
[2018-09-15] MEDS ORDERED: *HR* Propofol 200 MG/20 ML VIAL IVP ONE (20:23)
[2018-09-15] MEDS ORDERED: *HR* Midazolam HCl 2 MG/2 ML VIAL ONE (20:23)
[2018-09-15] MEDS ORDERED: *HR* FentaNYL (PF) 100 MCG/2 ML VIAL ONE ×2 (20:23→22:04)
[2018-09-15] MEDS ORDERED: *HR* Succinylcholine 200 MG/10 ML VIAL IVP ONE (20:23)
[2018-09-15] MEDS ORDERED: Lidocaine -MPF 2% 2 ML VIAL ONE (20:23)
[2018-09-15] MEDS ORDERED: *HR* HYDROmorphone (PF) 1 MG/ML SYRINGE IVP PRN (20:49)
[2018-09-15] MEDS ORDERED: *HR* Promethazine 25 MG/ML VIAL IVP PRN (20:49)
[2018-09-15] MEDS ORDERED: CefOXitin 2,000 MG VIAL ONE (20:55)
[2018-09-15] MEDS ORDERED: *HR* PHENYLEPHRINE 1,000 MCG/10 ML SYRINGE IVP ONE (21:57)
[2018-09-15] MEDS ORDERED: *HR* Morphine 10 MG/ML VIAL ONE (22:04)
[2018-09-15] MEDS ORDERED: Ondansetron 4 MG/2 ML VIAL ONE (22:18)
[2018-09-15] MEDS ORDERED: Dexamethasone 4 MG/ML VIAL ONE (22:18)
--- NOTE | 2018-09-15 22:56 | Operative Note ---
Date of procedure: 09/15/18 Pre-op diagnosis: small bowel obstruction Post-op diagnosis: same Procedure: exploratory laparotomy, detorsion of small bowel, small bowel resection with stapled anastamosis, repair of intraoperative itragenic enterotomy, revision of feeding jejunostomy Implants: T tube for feeding tube Complications: none Anesthesia: GETA Local Anesthetics: 0.5% Sensorcaine HCL SubQ (cc) Surgeon: Ismael Mccarthy Was there an dietitian assistant present: No Estimated blood loss (cc): 10 Specimen: small bowel Condition: stable Disposition: PACU Procedure in Detail: patient was brought into the operating room suite. Placed in the supine position. Mechanical DVT prophylaxis was placed. He underwent smooth induction of anesthesia. Prepped and draped in the usual fashion. Preoperative antibiotics were given. A time out was held identifying correct patinet pathology procedure and physician. I removed the lizeth, opened the abdomen along the original midline incision, dissected through the abdominal wall layers until I entered the abdomen. I removed all sutures that were closing the fascia. Upon entry I was able to appreciate the feeding tube was anchored to the abdominal wall, but it was torsed along the axis. Not completely torsed, but enough that i was able to appreciate bowel dilatation proximally. I removed the red rubber catheter. I was also able to appreciate the segment of bowel used for the serosal tunnel was also bruised. There was also a small enterotomy that began leaking succus with attempts at decompression. This was where one of the sutures for the serosal tunnel was. The enterotomy likely came from attempting to cut the suture to remove it from the abdominal wall. I used this enterotomy to insert the suction both proximally and distally. There was a lot of bilious drainage. I found the ligament of treitz to determine proximal and distal limb. I then used the SUSI stapler to resect the portion of bowel used for the serosal tunnel and created a side to side stapled anastamosis. I created a purse string using 3-0 silk suture around the bowel on the antimesenteric side of hte distal limb of the anastamosis. I followed that with a second pursestring around the original. I created my enterotomy using the electocautery and inserted the T-tube. It should be stated that I did back wall the bowel. I used an interrupted lembert suture to close and buttress it. I then tied my sutures. I then created an incision on the outside of the abdominal and pulled the end of the catheter through it. I made sure the T tube was oriented so as not to go through the anastamosis. I then anchored the bowel to the abdominal wall in 5 places along the length of the distal limb to prevent the bowel from twisting around the tube. I then secured the catheter to the abdominal wall with 2-0 prolene. I then closed the fascia using the 1-0 PDS suture in a running fashion. I used vicryl to close the deep layers and stapled the skin together. The patient tolerated the procedure and was escorted to PACu in stable condition.
[2018-09-15] MEDS ORDERED: Ipratropium/Albuterol Neb 3 ML IH PRN (23:17)
[2018-09-15] MEDS ORDERED: D10% in Water 500 ML IVC PRN (23:17)
--- NOTE | 2018-09-15 23:36 | Anesthesia Evaluation Post Op ---
Date of Encounter: 09/15/18 Time of Encounter: 23:36 - Vital Signs Vital Signs: Vital Signs/O2 Sat, Most Current Temp Pulse Resp BP Pulse Ox 99.4 F 118 18 123/86 92 09/15/18 23:25 09/15/18 23:25 09/15/18 23:25 09/15/18 23:25 09/15/18 23:25 - Lungs Lungs: Clear Ascult./Percussion - Airway Airway: Non-obstructed - Cardiovascular Regular Rate - Mental Status Mental Status: Alert & Oriented, Answers Appropriately - Pain Pain Scale: 4 Pain Scale used: Numeric (1 - 10) - Nausea Vomiting Nausea Vomiting: Not Present - Hydration Hydration: Ice chips, Has not voided - Discharge PostOp Status: Transfer Patient to floor
[2018-09-15] MEDS: 0.9 % Sodium Chloride 1,000 ML IVC SCH (23:41)
[2018-09-15] MEDS: *HR* HYDROmorphone 20 MG/20 ML PCA IVC PRN (23:41)
[2018-09-16] MEDS: 0.9 % Sodium Chloride 1,000 ML IVC SCH ×3 (00:57→16:00)
[2018-09-16] MEDS ORDERED: 0.9 % Sodium Chloride 1,000 ML ONE (05:20)
--- NOTE | 2018-09-16 12:18 | General Surgery Progress Note ---
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 okay to cont with radiation draw labs, replete lytes bolus 2L 2/2 dehydration Subjective Patient reports: no new complaints, feels better, still having pain, pain is less, voiding w/o difficulty, bowel movement Objective Intake and Output 09/15/18 09/16/18 09/16/18 23:59 07:59 15:59 Intake Total 0 / 0 1000 / 1000 Output Total Balance -10 -10 1000 / 1000 Intake: IV Fluids 1000 / 1000 0.9 % Sodium Chloride 1,000 ML 1000 / 1000 @ 999 mls/hr IVC .Q1H1M SANJU Rx# :[id number] Oral 0 / 0 Output: Urine 0 / 0 Estimated Blood Loss Other: Stool Size Moderate Stool Consistency loose liquid Stool Color Brown Kevin Colored # Voids 1 # Bowel Movements 1 Blood Glucose* 113 - General physical appearance no distress - Respiratory normal expansion, normal respiratory effort - Cardiovascular Cardiovascular exam: Present: RRR, tachycardia - Abdomen Abdomen: Present: soft (appropriately tender; less distended) - Integumentary no rash - Neurologic CN 2-12 grossly intact - Musculoskeletal normal posture - Labs 09/15/18 03:40 09/15/18 03:40 Consult Discharge Plan - Plan Referrals: [facility] [Outside]
[2018-09-16] MEDS: Pantoprazole 40 MG VIAL IVP SCH (13:33)
[2018-09-16] MEDS: *HR* Heparin 5,000 UNIT/ML VIAL SQ SCH ×2 (13:33→17:18)
[2018-09-16 14:18] LABS: Basophils % 0.2 %; Eosinophils % 0.2 %; Hematocrit 31.1 % (37.5-50.1); Hemoglobin 10.3 g/dL (12.9-16.9); Immature Granulocytes % 1.3 % (0-4); Lymphocytes # 0.3 K/mcL (0.6-4.6); Lymphocytes % 5.3 %; Mean Corpuscular HGB Conc 33.1 g/dL (31.6-35.5); Mean Corpuscular Hemoglobin 29.4 pg (28.0-33.3); Mean Corpuscular Volume 88.9 fL (83.0-100.0); Mean Platelet Volume 9.3 fL (9.4-12.4); Monocytes # 1.1 K/mcL (0.0-1.3); Monocytes % 23.5 %; Neutrophils # 3.3 K/mcL (1.6-8.9); Platelet Count 117 K/mcL (140-400); Red Cell Distribution Width 14.2 % (11.5-14.5); Segmented Neutrophils % 69.5 %
[2018-09-16 14:57] LABS: Alanine Aminotransferase 27 Units/L (7-52); Albumin 2.8 g/dL (3.5-5.7); Albumin/Globulin Ratio 1.1 (1.1-2.2); Aspartate Amino Transferase 17 Units/L (13-39); BUN/Creatinine Ratio 37 (6-26); Bilirubin,Total 1.1 mg/dL (0.3-1.0); Blood Urea Nitrogen 23 mg/dL (6-20); Calcium 8.4 mg/dL (8.6-10.3); Carbon Dioxide 26 mEq/L (23-29); Chloride 110 mEq/L (98-107); Globulin 2.6 g/dL (2.4-3.5); Glucose 111 mg/dL (70-105); Osmolality,Calculated 294 (280-300); Potassium 3.7 mEq/L (3.5-5.1); Sodium 140 mEq/L (136-145); Total Protein 5.4 g/dL (6.4-8.9); eGFR For Non-African Americans > 60 (> 60)
[2018-09-16 14:58] LABS: Alkaline Phosphatase 37 Units/L (34-104)
[2018-09-16 15:47] LABS: Platelet Estimate Normal (Normal)
[2018-09-16] MEDS ORDERED: Metoclopramide 10 MG/2 ML VIAL IVP PRN (15:54)
[2018-09-16] MEDS ORDERED: Clinimix E 5%-20% SOLUTION 2,000 ML with MVI, adult with vitamin K 10 ML, Trace Eleme... IVC SCH (17:00)
[2018-09-16 17:15] LABS: Magnesium 1.7 mg/dL (1.6-2.6); Phosphorous 3.5 mg/dL (2.7-4.5)
[2018-09-16] MEDS: Nystatin SUSP 5 ML UD.LIQ PO SCH (21:38)
[2018-09-17 03:52] LABS: VBG Ionized Calcium 1.21 mmol/L (1.15-1.35)
[2018-09-17 04:56] LABS: Basophils % 0.7 %; Eosinophils % 0.9 %; Hematocrit 29.7 % (37.5-50.1); Hemoglobin 9.9 g/dL (12.9-16.9); Immature Granulocytes % 1.6 % (0-4); Lymphocytes # 0.4 K/mcL (0.6-4.6); Lymphocytes % 9.1 %; Mean Corpuscular HGB Conc 33.3 g/dL (31.6-35.5); Mean Corpuscular Hemoglobin 29.8 pg (28.0-33.3); Mean Platelet Volume 9.4 fL (9.4-12.4); Monocytes # 1.3 K/mcL (0.0-1.3); Monocytes % 29.3 %; Neutrophils # 2.5 K/mcL (1.6-8.9); Platelet Count 109 K/mcL (140-400); Red Blood Count 3.32 M/mcL (4.19-5.50); Red Cell Distribution Width 14.5 % (11.5-14.5); Segmented Neutrophils % 58.4 %
[2018-09-17] MEDS: *HR* HYDROmorphone 20 MG/20 ML PCA IVC PRN (05:07)
[2018-09-17 05:10] LABS: BUN/Creatinine Ratio 37 (6-26); Blood Urea Nitrogen 20 mg/dL (6-20); Calcium 8.3 mg/dL (8.6-10.3); Carbon Dioxide 27 mEq/L (23-29); Chloride 108 mEq/L (98-107); Glucose 118 mg/dL (70-105); Magnesium 1.7 mg/dL (1.6-2.6); Osmolality,Calculated 292 (280-300); Phosphorous 2.7 mg/dL (2.7-4.5); Potassium 3.6 mEq/L (3.5-5.1); Sodium 139 mEq/L (136-145); eGFR For Non-African Americans > 60 (> 60)
[2018-09-17 05:16] LABS: Mean Corpuscular Volume 89.5 fL (83.0-100.0)
[2018-09-17] MEDS: Pantoprazole 40 MG VIAL IVP SCH (05:37)
[2018-09-17] MEDS: *HR* Heparin 5,000 UNIT/ML VIAL SQ SCH ×2 (05:37→18:44)
[2018-09-17 06:24] LABS: Platelet Estimate Decreased (Normal)
[2018-09-17 06:25] LABS: Polychromasia 1+ (Not Present)
--- NOTE | 2018-09-17 07:14 | General Surgery Progress Note ---
<Meghann Smith - Last Filed: 09/17/18 09:57> Date of Encounter: 09/17/18 Time of Encounter: 07:08 - Assessment and Plan (1) Esophageal carcinoma Current Visit: Yes Status: Acute POD2 of reduction of torsed bowel at feeding jejunostomy tube placement POD [address] Mccarthy - serial abdominal exams - supportive care and pain management- stop [employer] - continue IVFs lower rate - continue GI prophylaxes - up to chair and ambulate freely tid - continue routine J peg care - restart wound care - clear non carbonated non sweetened - TP continue - start tube feedings at rate of 10 - nutrition consulted Continue transportation to cancer center for radiation as needed. Social work consulted for discharge planning as will need home health for j tube care; thank you for arranging home health with [facility] approval (2) Ileus, postoperative Current Visit: Yes Status: Resolved Ileus developed after first operation for J tube placement but resolved with second procedure see above (3) Jejunostomy tube site pain Current Visit: Yes Status: Acute (4) COPD (chronic obstructive pulmonary disease) Current Visit: Yes Status: Acute No signs of exacerbation - duonebs PRN Qualifiers: COPD type: unspecified COPD Qualified Code(s): J44.9 - Chronic obstructive pulmonary disease, unspecified (5) Malnutrition Current Visit: Yes Status: Chronic Due to chronic illness- Nutrition consulted - see above Qualifiers: Malnutrition type: protein-calorie malnutrition Protein-calorie malnutrition severity: severe Qualified Code(s): E43 - Unspecified severe protein-calorie malnutrition (6) DVT prophylaxis Current Visit: Yes Status: Acute Heparin sq and scd Subjective Patient reports: feels better, pain is less, flatus, no bowel movement, afebrile, other (hungry for carnation breakfast and orange juice) Objective Vital Signs - Last 8 Hours Temp Pulse Resp BP Pulse Ox 09/17/18 06:37 99.1 F 112 14 123/73 90 09/17/18 04:39 98 F 113 14 115/75 92 Intake and Output 09/16/18 09/16/18 09/17/18 15:59 23:59 07:59 Intake Total 1250 / 1250 1000 / 1000 0 / 0 Output Total 100 / 100 625 / 625 350 / 350 Balance 1150 / 1150 375 / 375 -350 / -350 Intake: IV Fluids 1250 / 1250 1000 / 1000 0.9 % Sodium Chloride 1,000 ML 1000 / 1000 @ 999 mls/hr IVC .Q1H1M [facility] Rx# :[id number] Oral 0 / 0 Output: Urine 100 / 100 625 / 625 350 / 350 Other: Meal NPO # Bowel Movements 0 Weight 97.8 kg Blood Glucose* 130 137 126 Patient Weight 09/17/18 23:59 Weight 97.8 kg - General physical appearance well developed, well nourished, no distress - Eyes normal ocular movement - ENT normal pinna, normal nares, no hearing loss - Respiratory normal expansion, normal respiratory effort, clear to auscultation - Cardiovascular Cardiovascular exam: Present: RRR, no murmurs/rubs/gallops - Abdomen Abdomen: Present: bowel sounds present (minimal), soft, non tender. Absent: guarding, rebound Hernia: none - Incision Incision: Present: approximated. Absent: draining, swollen, inflamed - Integumentary no rash, no growths, no abnormal pigmentation - Neurologic CN 2-12 grossly intact, normal coordination, normal sensation - Musculoskeletal normal gait, normal posture - Psychiatric oriented to time, oriented to person, oriented to place, speech is normal, memory intact - Labs 09/17/18 04:33 09/17/18 04:33 Diabetes panel 09/16/18 09/17/18 Range/Units 13:50 04:33 Sodium 140 139 (136-145) mEq/L Potassium 3.7 3.6 (3.5-5.1) mEq/L Chloride 110 H 108 H (98-107) mEq/L Carbon Dioxide 26 27 (23-29) mEq/L BUN 23 H 20 (6-20) mg/dL Creatinine 0.62 L 0.54 L (0.70-1.30) mg/dL Glucose 111 H 118 H (70-105) mg/dL Calcium 8.4 L 8.3 L (8.6-10.3) mg/dL AST 17 (13-39) Units/L ALT 27 (7-52) Units/L Alkaline Phosphatase 37 (34-104) Units/L Albumin 2.8 L (3.5-5.7) g/dL Calcium panel 09/16/18 09/17/18 Range/Units 13:50 04:33 Calcium 8.4 L 8.3 L (8.6-10.3) mg/dL Phosphorus 3.5 2.7 (2.7-4.5) mg/dL Albumin 2.8 L (3.5-5.7) g/dL Pituitary panel 09/16/18 09/17/18 Range/Units 13:50 04:33 Sodium 140 139 (136-145) mEq/L Potassium 3.7 3.6 (3.5-5.1) mEq/L Chloride 110 H 108 H (98-107) mEq/L Carbon Dioxide 26 27 (23-29) mEq/L BUN 23 H 20 (6-20) mg/dL Creatinine 0.62 L 0.54 L (0.70-1.30) mg/dL Glucose 111 H 118 H (70-105) mg/dL Calcium 8.4 L 8.3 L (8.6-10.3) mg/dL Adrenal panel 09/16/18 09/17/18 Range/Units 13:50 04:33 Sodium 140 139 (136-145) mEq/L Potassium 3.7 3.6 (3.5-5.1) mEq/L Chloride 110 H 108 H (98-107) mEq/L Carbon Dioxide 26 27 (23-29) mEq/L BUN 23 H 20 (6-20) mg/dL Creatinine 0.62 L 0.54 L (0.70-1.30) mg/dL Glucose 111 H 118 H (70-105) mg/dL Calcium 8.4 L 8.3 L (8.6-10.3) mg/dL Total Bilirubin 1.1 H (0.3-1.0) mg/dL AST 17 (13-39) Units/L ALT 27 (7-52) Units/L Alkaline Phosphatase 37 (34-104) Units/L Albumin 2.8 L (3.5-5.7) g/dL Consult Discharge Plan - Plan Referrals: [facility] [Outside] <Ismael Mccarthy - Last Filed: 09/17/18 23:42> - Assessment and Plan (1) Esophageal carcinoma Current Visit: Yes Status: Acute Objective Vital Signs - Last 8 Hours Temp Pulse Resp BP Pulse Ox 09/17/18 21:00 98.5 F 105 15 125/82 91 09/17/18 19:12 98.6 F 111 20 145/90 90 09/17/18 15:42 98.5 F 107 14 142/92 90 Intake and Output 09/17/18 09/17/18 09/17/18 07:59 15:59 23:59 Intake Total 0 / 0 600 / 600 20 / 20 Output Total 350 / 350 700 / 700 350 / 350 Balance -350 / -350 -100 / -100 -330 / -330 Intake: Oral 0 / 0 600 / 600 Free Water Intake Amount 20 20 Output: Urine 350 / 350 700 / 700 350 / 350 Other: Meal npo Percent of Meal Consumed 0% # Bowel Movements 0 Weight 97.8 kg Blood Glucose* 126 126 140 Patient Weight 09/17/18 23:59 Weight 97.8 kg - Labs 09/17/18 04:33 09/17/18 04:33 Diabetes panel 09/17/18 Range/Units 04:33 Sodium 139 (136-145) mEq/L Potassium 3.6 (3.5-5.1) mEq/L Chloride 108 H (98-107) mEq/L Carbon Dioxide 27 (23-29) mEq/L BUN 20 (6-20) mg/dL Creatinine 0.54 L (0.70-1.30) mg/dL Glucose 118 H (70-105) mg/dL Calcium 8.3 L (8.6-10.3) mg/dL Calcium panel 09/17/18 Range/Units 04:33 Calcium 8.3 L (8.6-10.3) mg/dL Phosphorus 2.7 (2.7-4.5) mg/dL Pituitary panel 09/17/18 Range/Units 04:33 Sodium 139 (136-145) mEq/L Potassium 3.6 (3.5-5.1) mEq/L Chloride 108 H (98-107) mEq/L Carbon Dioxide 27 (23-29) mEq/L BUN 20 (6-20) mg/dL Creatinine 0.54 L (0.70-1.30) mg/dL Glucose 118 H (70-105) mg/dL Calcium 8.3 L (8.6-10.3) mg/dL Adrenal panel 09/17/18 Range/Units 04:33 Sodium 139 (136-145) mEq/L Potassium 3.6 (3.5-5.1) mEq/L Chloride 108 H (98-107) mEq/L Carbon Dioxide 27 (23-29) mEq/L BUN 20 (6-20) mg/dL Creatinine 0.54 L (0.70-1.30) mg/dL Glucose 118 H (70-105) mg/dL Calcium 8.3 L (8.6-10.3) mg/dL - Attending Attestation patient seen and examined. i have reviewed all labs, imaging and notes. I agree with the above assessment and plan and wish to add the following... Had another episode of vomiting. still having bowel function; pain controlled; likely an ileus; npo tpn hold TF
[2018-09-17] MEDS: Nystatin SUSP 5 ML UD.LIQ PO SCH ×4 (08:45→20:07)
[2018-09-17] MEDS ORDERED: 0.9 % Sodium Chloride 1,000 ML ONE (09:10)
[2018-09-17] MEDS: 0.9 % Sodium Chloride 1,000 ML IVC SCH ×2 (09:37→10:34)
[2018-09-17] MEDS ORDERED: Ketorolac 30 MG/ML VIAL IVP PRN (10:03)
--- NOTE | 2018-09-17 15:13 | Oncology Inp Progress Note ---
Date of Encounter: 09/17/18 Time of Encounter: 16:00 (1) Esophageal carcinoma Current Visit: Yes Status: Acute Assessment and plan: He completed his third of 5 weeks of weekly carboplatin and paclitaxel September 07. Would recommend completion of neoadjuvant therapy upon recovery in next 2 weeks or so. Further decisions regarding completion of therapy will be deferred until completion of his hospital stay (2) Jejunostomy tube site pain Current Visit: Yes Status: Acute Assessment and plan: He was found to have a torsed bowel at feeding jejunostomy tube placement. He is status post revision POD 7. Clinically, he is improving. Tube feeds to start today will tentative discharge pending tolerance. We will sign off. I will arrange f/u with Dr. Alvarez next week for further treatment planning. Oncology: Subj Interval history: Feeling sore this morning, mostly with movement. Worsened after gtt stopped. Passing flatus. No nausea or vomiting. Feeds are planned to start today. No fever, chills or infection. No other acute change to his health. - Constitutional Vitals: Vital Signs Temp Pulse Resp BP Pulse Ox 09/17/18 11:30 98.3 F 104 14 126/81 90 09/17/18 06:37 99.1 F 112 14 123/73 90 09/17/18 04:39 98 F 113 14 115/75 92 09/16/18 15:50 98.2 F 114 19 116/84 93 Intake and Output 09/17/18 09/17/18 09/17/18 00:59 08:59 16:59 Intake Total 1000 / 1000 0 / 0 600 / 600 Output Total 625 / 625 350 / 350 400 / 400 Balance 375 / 375 -350 / -350 200 / 200 Intake: IV Fluids 1000 / 1000 Oral 0 / 0 600 / 600 Output: Urine 625 / 625 350 / 350 400 / 400 Other: Meal NPO npo Percent of Meal Consumed 0% # Bowel Movements 0 Weight 97.8 kg Blood Glucose* 137 145 126 Patient Weight 09/18/18 00:59 Weight 97.8 kg General appearance: average body habitus, no acute distress - Head Head exam: Present: atraumatic, normal inspection, normocephalic - Eye Eye exam: Present: normal appearance, conjuntiva pink, sclera anicteric - ENT ENT exam: Present: mucous membranes moist, normal oropharynx - Neck Neck exam: Present: full ROM - Respiratory Respiratory exam: Present: CTAB - Cardiovascular Cardiovascular exam: Present: RRR - GI/Abdominal GI/Abdominal exam: Present: normal bowel sounds, tenderness Additional comments: Incision C/D/I. J tube in place - Extremities Exam Extremities exam: Present: normal inspection - Neurological Exam Neurological exam: Present: alert, CN II-XII intact, normal gait, oriented X3 Oncology: Obj Data - Labs CBC & Chem 7: 09/17/18 04:33 09/17/18 04:33 Labs: Laboratory Results - last 24 hr 09/15/18 09/16/18 09/16/18 20:31 04:32 07:52 WBC RBC Hgb Hct MCV MCH MCHC RDW Plt Count MPV Immature Gran % Seg Neutrophils % Lymphocytes % Monocytes % Eosinophils % Basophils % Neutrophils # Lymphocytes # Monocytes # Eosinophils # Basophils # Platelet Estimate Polychromasia Sodium Potassium Chloride Carbon Dioxide BUN Creatinine Est GFR ( Amer) Est GFR (Non-Af Amer) BUN/Creatinine Ratio Glucose POC Glucose 113 H 186 H 189 H Calculated Osmolality Calcium Venous Ioniz Calcium Phosphorus Magnesium Total Bilirubin AST ALT Alkaline Phosphatase Serum Total Protein Albumin Globulin Albumin/Globulin Ratio Specimen Rejected 09/16/18 09/16/18 09/16/18 11:54 13:50 13:50 WBC RBC Hgb Hct MCV MCH MCHC RDW Plt Count MPV Immature Gran % 1.3 Seg Neutrophils % 69.5 Lymphocytes % 5.3 Monocytes % 23.5 Eosinophils % 0.2 Basophils % 0.2 Neutrophils # 3.3 Lymphocytes # 0.3 L Monocytes # 1.1 Eosinophils # 0.0 Basophils # 0.0 Platelet Estimate Normal Polychromasia Sodium 140 Potassium 3.7 Chloride 110 H Carbon Dioxide 26 BUN 23 H Creatinine 0.62 L Est GFR ( Amer) > 60 Est GFR (Non-Af Amer) > 60 BUN/Creatinine Ratio 37 H Glucose 111 H POC Glucose 151 H Calculated Osmolality 294 Calcium 8.4 L Venous Ioniz Calcium Phosphorus 3.5 Magnesium 1.7 Total Bilirubin 1.1 H AST 17 ALT 27 Alkaline Phosphatase 37 Serum Total Protein 5.4 L Albumin 2.8 L Globulin 2.6 Albumin/Globulin Ratio 1.1 Specimen Rejected 09/16/18 09/16/18 09/17/18 15:50 20:25 03:34 WBC RBC Hgb Hct MCV MCH MCHC RDW Plt Count MPV Immature Gran % Seg Neutrophils % Lymphocytes % Monocytes % Eosinophils % Basophils % Neutrophils # Lymphocytes # Monocytes # Eosinophils # Basophils # Platelet Estimate Polychromasia Sodium Potassium Chloride Carbon Dioxide BUN Creatinine Est GFR ( Amer) Est GFR (Non-Af Amer) BUN/Creatinine Ratio Glucose POC Glucose 130 H 124 H Calculated Osmolality Calcium Venous Ioniz Calcium Phosphorus Magnesium Total Bilirubin AST ALT Alkaline Phosphatase Serum Total Protein Albumin Globulin Albumin/Globulin Ratio Specimen Rejected Contaminated 09/17/18 09/17/18 09/17/18 03:49 04:33 04:33 WBC 4.3 RBC 3.32 L Hgb 9.9 L Hct 29.7 L MCV 89.5 MCH 29.8 MCHC 33.3 RDW 14.5 Plt Count 109 L MPV 9.4 Immature Gran % 1.6 Seg Neutrophils % 58.4 Lymphocytes % 9.1 Monocytes % 29.3 Eosinophils % 0.9 Basophils % 0.7 Neutrophils # 2.5 Lymphocytes # 0.4 L Monocytes # 1.3 Eosinophils # 0.0 Basophils # 0.0 Platelet Estimate Decreased L Polychromasia 1+ A Sodium 139 Potassium 3.6 Chloride 108 H Carbon Dioxide 27 BUN 20 Creatinine 0.54 L Est GFR ( Amer) > 60 Est GFR (Non-Af Amer) > 60 BUN/Creatinine Ratio 37 H Glucose 118 H POC Glucose Calculated Osmolality 292 Calcium 8.3 L Venous Ioniz Calcium 1.21 Phosphorus 2.7 Magnesium 1.7 Total Bilirubin AST ALT Alkaline Phosphatase Serum Total Protein Albumin Globulin Albumin/Globulin Ratio Specimen Rejected - Impressions Final Diagnosis: Small bowel resection: Segment of benign small bowel with serosal edema and vascular congestion,; submucosal hemorrhage and vascular congestion; and mild mucosal chronic inflamm ation Prominent serosal fibrous adhesions associated with fibroblastic proliferation with reactive nuclear atypia. Mesenteric fibrous adhesions Resection margins are viable Negative for malignancy - ABG Interpretation ABG results: PT/INR, D-dimer PT 11.1 Seconds (9.4-12.1) 09/09/18 16:50 Consult Discharge Plan - Plan Referrals: [facility] [Outside] Inpatient Charges Provider: Dr. Chetna Wallace Follow up - Inpatient: [id number]
[2018-09-17] MEDS: OXYCODONE Oral CONC 10 MG/0.5 ML ORAL.SYG SL PRN (16:44)
[2018-09-17] MEDS: Ondansetron 4 MG/2 ML VIAL IVP PRN (16:45)
[2018-09-17] MEDS ORDERED: Clinimix E 5%-20% SOLUTION 2,000 ML with MVI, adult with vitamin K 10 ML, Trace Eleme... IVC SCH (17:00)
[2018-09-17] MEDS: *HR* Promethazine 25 MG/ML VIAL IVP PRN (18:56)
[2018-09-18] MEDS: *HR* Promethazine 25 MG/ML VIAL IVP PRN ×2 (02:12→13:02)
[2018-09-18] MEDS: OXYCODONE Oral CONC 10 MG/0.5 ML ORAL.SYG SL PRN (02:13)
[2018-09-18 03:47] LABS: BUN/Creatinine Ratio 35 (6-26); Blood Urea Nitrogen 19 mg/dL (6-20); Calcium 8.1 mg/dL (8.6-10.3); Carbon Dioxide 26 mEq/L (23-29); Chloride 105 mEq/L (98-107); Glucose 124 mg/dL (70-105); Magnesium 1.8 mg/dL (1.6-2.6); Osmolality,Calculated 286 (280-300); Potassium 3.3 mEq/L (3.5-5.1); Sodium 136 mEq/L (136-145); eGFR For Non-African Americans > 60 (> 60)
[2018-09-18] MEDS: Ondansetron 4 MG/2 ML VIAL IVP PRN ×2 (04:55→09:40)
[2018-09-18] MEDS: *HR* Heparin 5,000 UNIT/ML VIAL SQ SCH ×2 (05:19→18:05)
[2018-09-18] MEDS: Pantoprazole 40 MG VIAL IVP SCH (05:19)
[2018-09-18] MEDS ORDERED: Potassium Chloride 40 MEQ, Lidocaine 1% 2 ML in D5% in Water 500 ML IVPB ONE (08:29)
[2018-09-18] MEDS ORDERED: Scopolamine Patch 1.5 MG PATCH.TD72 TD SCH (08:30)
[2018-09-18] MEDS ORDERED: OXYCODONE Oral CONC 10 MG/0.5 ML ORAL.SYG SL PRN ×2 (08:32→08:33)
--- NOTE | 2018-09-18 08:36 | General Surgery Progress Note ---
<Lucy Galvan - Last Filed: 09/18/18 10:14> Date of Encounter: 09/18/18 Time of Encounter: 08:36 - Assessment and Plan (1) Esophageal carcinoma Current Visit: Yes Status: Acute Date of procedure: 09/10/18 Pre-op diagnosis: dysphagia 2/2 esophageal cancer Post-op diagnosis: same Procedure: feeding jejunostomy placement Implants: red rubber catheter for J tube feeds Complications: none Anesthesia: GETA Local Anesthetics: 0.5% Sensorcaine HCL SubQ (cc) Surgeon: Ismael Mccarthy Date of procedure: 09/15/18 Pre-op diagnosis: small bowel obstruction Post-op diagnosis: same Procedure: exploratory laparotomy, detorsion of small bowel, small bowel resection with stapled anastamosis, repair of intraoperative itragenic enterotomy, revision of feeding jejunostomy Implants: T tube for feeding tube Complications: none Anesthesia: GETA POD #8 (09/10) and POD #3 (09/15) as above. Pt with posoperative ileus, n/v, abd pain, distention, lack of flatus. Will plan for EGD today to evaluate and place NG tube. Oncology following. He is in his 3rd week of 5 of weekly carboplatin and paclitaxel September 07. Recommend completion of neoadjuvant therapy upon recovery in next 2 weeks. Further decisions of completion of therapy will be deferred un til completion of his hospital stay per reset oncology note. Plan: supportive care and discomfort management while awaiting return about function add scheduled Ofirmev and Toradol. Stop morphine. Add PRN oxycodone for breakthrough pain add scopolamine patch add Reglan 10 mg Q6 hours scheduled add scheduled pressurized aerosols (RT consulted) consult PT/OT for mobilization and discharge planning serial abdominal exams repeat a.m. labs see assessment and plan below for further information (2) Ileus, postoperative Current Visit: Yes Status: Acute Add reglan 10 mg Q6H scheudled dulcolax suppositories NG to be placed during EGD today NPO continue to closely monitor replete electrolytes (3) Shortness of breath Current Visit: Yes Status: Acute Likely multi-factorial including splinting, atelectasis, acute on chronic anemia RT consult for Accu Pap aerosols and aggressive pulmonary toileting incentive spirometry 10 times every hour while awake Venofer (4) Anemia of chronic disease Current Visit: Yes Status: Acute Hemoglobin 9.5 down from baseline of 13 no evidence of acute bleed no indication for transfusion at this time iron 22, saturation 13%, transferrin 119 transfuse Venofer 250 mg daily for 5 days (5) COPD (chronic obstructive pulmonary disease) Current Visit: Yes Status: Acute see SOB above Qualifiers: COPD type: unspecified COPD Qualified Code(s): J44.9 - Chronic obstructive pulmonary disease, unspecified (6) Malnutrition Current Visit: Yes Status: Chronic Continue TPN Qualifiers: Malnutrition type: protein-calorie malnutrition Protein-calorie malnutrition severity: severe Qualified Code(s): E43 - Unspecified severe protein-calorie malnutrition (7) DVT prophylaxis Current Visit: Yes Status: Acute Continue heparin 5000U SQ EPCD Subjective Patient reports: still having pain, voiding w/o difficulty, no flatus, no bowel movement, nausea, vomiting, shortness of breath Objective Vital Signs - Last 8 Hours Temp Pulse Resp BP Pulse Ox 09/18/18 07:02 97.8 F 102 17 152/87 92 09/18/18 04:02 97.8 F 103 16 129/85 94 Intake and Output 09/17/18 09/18/18 09/18/18 23:59 07:59 15:59 Intake Total 250 / 250 Output Total 350 / 350 550 / 550 Balance -330 / -330 -300 / -300 Intake: IV Fluids 250 / 250 Intralipid 20% 250 ML @ 21 mls/ 250 / 250 hr IVPB MoWeFr@1700 [facility] Rx#: [id number] Oral 0 / 0 Free Water Intake Amount Output: Urine 350 / 350 500 / 500 Emesis 50 / 50 Other: Blood Glucose* 140 153 Vital Signs Temp Pulse Resp BP Pulse Ox 09/18/18 07:02 97.8 F 102 17 152/87 92 09/18/18 04:02 97.8 F 103 16 129/85 94 09/18/18 00:30 97.7 F 101 18 113/79 90 09/17/18 21:00 98.5 F 105 15 125/82 91 09/17/18 19:12 98.6 F 111 20 145/90 90 09/17/18 15:42 98.5 F 107 14 142/92 90 09/17/18 11:30 98.3 F 104 14 126/81 90 Intake and Output 09/17/18 09/18/18 09/18/18 23:59 07:59 15:59 Intake Total 250 / 250 Output Total 350 / 350 550 / 550 Balance -330 / -330 -300 / -300 Intake: IV Fluids 250 / 250 Intralipid 20% 250 ML @ 21 mls/ 250 / 250 hr IVPB MoWeFr@1700 [facility] Rx#: [id number] Oral 0 / 0 Free Water Intake Amount Output: Urine 350 / 350 500 / 500 Emesis 50 / 50 Other: Meal NPO BREAKFAST Blood Glucose* 140 153 VITAL SIGNS: Reviewed. See [facility] GENERAL: In apparent distress. Guarding posture, keeps eyes closed, short of breath, states nausea with movement costs and abdominal pain HEENT: Normocephalic, atraumatic, extraocular motions intact, oropharynx is pink and dry, there is no neck adenopathy or JVD noted. CHEST/RESPIRATORY: The thorax is free from signs of trauma. Lung sounds: decreased respiratory effort. Decreased breath sounds CARDIAC: tachycardic. Normal S1 and S2, without murmurs, gallops, or rubs. VASCULAR: generalized edema Edema. 2+ peripheral pulses. ABDOMEN: involuntary guarding, absent bowel sounds, firm, distended INCISION: Surgical incision is clean, dry, and intact. There are no signs of cellulitis or infection noted. WOUNDS/DRAINS: J-tube site within normal limits MUSCULOSKELETAL: not assessed NEUROLOGIC EXAM: Alert and oriented x 3. Speech normal. Follows commands. PSYCHIATRIC: Mood normal. SKIN: jaundice. - Labs 09/18/18 09:38 09/18/18 03:15 Diabetes panel 09/18/18 Range/Units 03:15 Sodium 136 (136-145) mEq/L Potassium 3.3 L (3.5-5.1) mEq/L Chloride 105 (98-107) mEq/L Carbon Dioxide 26 (23-29) mEq/L BUN 19 (6-20) mg/dL Creatinine 0.54 L (0.70-1.30) mg/dL Glucose 124 H (70-105) mg/dL Calcium 8.1 L (8.6-10.3) mg/dL Calcium panel 09/18/18 Range/Units 03:15 Calcium 8.1 L (8.6-10.3) mg/dL Phosphorus 3.0 (2.7-4.5) mg/dL Pituitary panel 09/18/18 Range/Units 03:15 Sodium 136 (136-145) mEq/L Potassium 3.3 L (3.5-5.1) mEq/L Chloride 105 (98-107) mEq/L Carbon Dioxide 26 (23-29) mEq/L BUN 19 (6-20) mg/dL Creatinine 0.54 L (0.70-1.30) mg/dL Glucose 124 H (70-105) mg/dL Calcium 8.1 L (8.6-10.3) mg/dL Adrenal panel 09/18/18 Range/Units 03:15 Sodium 136 (136-145) mEq/L Potassium 3.3 L (3.5-5.1) mEq/L Chloride 105 (98-107) mEq/L Carbon Dioxide 26 (23-29) mEq/L BUN 19 (6-20) mg/dL Creatinine 0.54 L (0.70-1.30) mg/dL Glucose 124 H (70-105) mg/dL Calcium 8.1 L (8.6-10.3) mg/dL Consult Discharge Plan - Plan Referrals: [facility] [Outside] <Ismael Mccarthy - Last Filed: 09/18/18 18:04> - Assessment and Plan (1) Esophageal carcinoma Current Visit: Yes Status: Acute Objective Vital Signs - Last 8 Hours Temp Pulse Resp BP Pulse Ox 09/18/18 17:18 98.0 F 88 16 131/88 97 09/18/18 16:35 97.8 F 89 18 119/81 09/18/18 16:29 18 96 09/18/18 16:13 97.8 F 88 18 121/83 96 09/18/18 14:31 97.5 F L 94 16 113/76 09/18/18 14:15 98.4 F 98 18 121/77 95 09/18/18 14:04 100 18 126/86 95 09/18/18 13:59 102 20 130/87 95 09/18/18 13:54 103 18 145/97 95 09/18/18 13:49 102 18 133/92 94 09/18/18 13:44 112 20 149/101 96 09/18/18 13:39 95 18 130/83 97 09/18/18 13:34 70 18 135/82 97 09/18/18 10:23 98.4 F 99 18 127/84 91 Intake and Output 09/18/18 09/18/18 09/18/18 07:59 15:59 23:59 Intake Total 250 / 250 100 / 100 Output Total 550 / 550 Balance -300 / -300 100 / 100 Intake: IV Fluids 250 / 250 100 / 100 Ofirmev 1,000 mg/100 ml 1,000 100 / 100 mg In 100 ml @ 400 mls/hr IVPB Q6HR [facility] Rx#:[id number] Intralipid 20% 250 ML @ 21 mls/ 250 / 250 hr IVPB MoWeFr@1700 [facility] Rx#: [id number] Oral 0 / 0 0 / 0 Output: Urine 500 / 500 Emesis 50 / 50 Other: Meal NPO Percent of Meal Consumed 0% Blood Glucose* 153 146 124 - Labs 09/18/18 09:38 09/18/18 03:15 Diabetes panel 09/18/18 Range/Units 03:15 Sodium 136 (136-145) mEq/L Potassium 3.3 L (3.5-5.1) mEq/L Chloride 105 (98-107) mEq/L Carbon Dioxide 26 (23-29) mEq/L BUN 19 (6-20) mg/dL Creatinine 0.54 L (0.70-1.30) mg/dL Glucose 124 H (70-105) mg/dL Calcium 8.1 L (8.6-10.3) mg/dL AST 18 (13-39) Units/L ALT 24 (7-52) Units/L Alkaline Phosphatase 39 (34-104) Units/L Albumin 2.6 L (3.5-5.7) g/dL Calcium panel 09/18/18 Range/Units 03:15 Calcium 8.1 L (8.6-10.3) mg/dL Phosphorus 3.0 (2.7-4.5) mg/dL Albumin 2.6 L (3.5-5.7) g/dL Pituitary panel 09/18/18 Range/Units 03:15 Sodium 136 (136-145) mEq/L Potassium 3.3 L (3.5-5.1) mEq/L Chloride 105 (98-107) mEq/L Carbon Dioxide 26 (23-29) mEq/L BUN 19 (6-20) mg/dL Creatinine 0.54 L (0.70-1.30) mg/dL Glucose 124 H (70-105) mg/dL Calcium 8.1 L (8.6-10.3) mg/dL Adrenal panel 09/18/18 Range/Units 03:15 Sodium 136 (136-145) mEq/L Potassium 3.3 L (3.5-5.1) mEq/L Chloride 105 (98-107) mEq/L Carbon Dioxide 26 (23-29) mEq/L BUN 19 (6-20) mg/dL Creatinine 0.54 L (0.70-1.30) mg/dL Glucose 124 H (70-105) mg/dL Calcium 8.1 L (8.6-10.3) mg/dL Total Bilirubin 0.9 (0.3-1.0) mg/dL AST 18 (13-39) Units/L ALT 24 (7-52) Units/L Alkaline Phosphatase 39 (34-104) Units/L Albumin 2.6 L (3.5-5.7) g/dL - Attending Attestation patient seen and examined. i have reviewed all labs, imaging, and notes. i agree with the above assessment and plan and wish to add sri following... POD#3 s/p revision of feeding jejunostomy now with symptomatology suggestive of obstruction; s/p EGD with placement of NG tube; will await complete decompression replace lytes; NPO TPN NG tube to [facility] plan for imaging in AM
[2018-09-18 08:54] LABS: % Iron Saturation 13 % (20-55); Alanine Aminotransferase 24 Units/L (7-52); Albumin 2.6 g/dL (3.5-5.7); Albumin/Globulin Ratio 0.9 (1.1-2.2); Alkaline Phosphatase 39 Units/L (34-104); Aspartate Amino Transferase 18 Units/L (13-39); Bilirubin,Direct 0.5 mg/dL (0.0-0.2); Bilirubin,Indirect 0.4 mg/dL (0.0-1.2); Bilirubin,Total 0.9 mg/dL (0.3-1.0); Globulin 2.8 g/dL (2.4-3.5); Iron 22 mcg/dL (65-175); Total Protein 5.4 g/dL (6.4-8.9); Transferrin 119 mg/dL (203-362)
[2018-09-18] MEDS: Ipratropium/Albuterol Neb 3 ML IH SCH ×5 (09:19→23:42)
[2018-09-18] MEDS: Metoclopramide 10 MG/2 ML VIAL IVP SCH ×3 (09:35→17:52)
[2018-09-18] MEDS: Bisacodyl 10 MG RECTAL SUPPOSITORY RC SCH ×2 (09:35→10:27)
[2018-09-18] MEDS: Nystatin SUSP 5 ML UD.LIQ PO SCH ×5 (09:35→20:20)
[2018-09-18] MEDS: Ketorolac 15 MG/ML VIAL IVP SCH ×4 (09:38→17:52)
[2018-09-18 10:09] LABS: Hematocrit 27.6 % (37.5-50.1); Hemoglobin 9.5 g/dL (12.9-16.9); Mean Corpuscular HGB Conc 34.4 g/dL (31.6-35.5); Mean Corpuscular Hemoglobin 29.8 pg (28.0-33.3); Mean Corpuscular Volume 86.5 fL (83.0-100.0); Mean Platelet Volume 9.5 fL (9.4-12.4); Platelet Count 118 K/mcL (140-400); Red Blood Count 3.19 M/mcL (4.19-5.50); Red Cell Distribution Width 13.9 % (11.5-14.5)
[2018-09-18 10:29] LABS: Lymphocytes # 0.4 K/mcL (0.6-4.6); Neutrophils # 3.6 K/mcL (1.6-8.9); Platelet Estimate Slight Decrease (Normal)
[2018-09-18] MEDS: Acetaminophen IV 1,000 MG/100 ML INFUS..BTL IVPB SCH ×2 (12:10→17:56)
[2018-09-18] MEDS ORDERED: *HR* FentaNYL (PF) 100 MCG/2 ML VIAL ONE (13:25)
[2018-09-18] MEDS: *HR* Midazolam HCl 5 MG/5 ML VIAL IVP ONE ×4 (13:39→13:50)
[2018-09-18] MEDS ORDERED: Isovue-370 500 ML INFUS..BTL IV ONE (14:07)
[2018-09-18] MEDS ORDERED: Simethicone 40 MG/0.6 ML MLS IR ONE (14:40)
[2018-09-18] MEDS ORDERED: Tetracaine/Benzocaine/Butamben 1 SPRAY AEROSOL MM ONE (14:40)
[2018-09-18] MEDS ORDERED: *HR* Propofol 200 MG/20 ML VIAL IVP ONE ×2 (14:55→15:49)
[2018-09-18] MEDS ORDERED: Lidocaine -MPF 2% 2 ML VIAL ONE (14:55)
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
[2018-09-18] MEDS ORDERED: Metoclopramide 10 MG/2 ML VIAL ONE (15:23)
[2018-09-18] MEDS ORDERED: Famotidine 20 MG/2 ML VIAL ONE (15:23)
[2018-09-18] MEDS ORDERED: 0.9 % Sodium Chloride 1,000 ML IV.SOLN IV ONE (15:29)
[2018-09-18] MEDS ORDERED: Pantoprazole 40 MG VIAL IVC ONE (15:29)
[2018-09-18] MEDS ORDERED: *HR* Heparin 5,000 UNIT/ML VIAL IVP ONE (15:29)
[2018-09-18] MEDS ORDERED: Lidocaine -MPF 4% 5 ML AMPUL ONE (15:30)
[2018-09-18] MEDS ORDERED: Clinimix E 5%-20% SOLUTION 2,000 ML with MVI, adult with vitamin K 10 ML, Trace Eleme... IVC SCH ×3 (17:00→18:00)
[2018-09-18] MEDS: Iron Sucrose Complex 250 MG in 0.9 % Sodium Chloride 250 ML IVPB SCH (17:44)
[2018-09-19] MEDS: Metoclopramide 10 MG/2 ML VIAL IVP SCH ×3 (00:33→11:57)
[2018-09-19] MEDS: Ketorolac 15 MG/ML VIAL IVP SCH ×3 (00:34→11:57)
[2018-09-19] MEDS: Acetaminophen IV 1,000 MG/100 ML INFUS..BTL IVPB SCH ×3 (01:18→11:34)
[2018-09-19] MEDS: Ipratropium/Albuterol Neb 3 ML IH SCH ×4 (03:56→15:36)
[2018-09-19 05:07] LABS: Basophils % 0.3 %; Eosinophils % 0.6 %
[2018-09-19 05:09] LABS: Hematocrit 28.8 % (37.5-50.1); Hemoglobin 9.7 g/dL (12.9-16.9); Immature Granulocytes % 1.3 % (0-4); Immature Platelets 7.4 % (1.1-6.1); Lymphocytes # 0.3 K/mcL (0.6-4.6); Lymphocytes % 4.6 %; Mean Corpuscular HGB Conc 33.7 g/dL (31.6-35.5); Mean Corpuscular Hemoglobin 29.4 pg (28.0-33.3); Mean Corpuscular Volume 87.3 fL (83.0-100.0); Mean Platelet Volume 10.3 fL (9.4-12.4); Monocytes # 0.8 K/mcL (0.0-1.3); Monocytes % 11.8 %; Neutrophils # 5.7 K/mcL (1.6-8.9); Red Cell Distribution Width 13.6 % (11.5-14.5); Segmented Neutrophils % 81.4 %
[2018-09-19 05:12] LABS: Platelet Count 90 K/mcL (140-400)
[2018-09-19] MEDS: Pantoprazole 40 MG VIAL IVP SCH (05:25)
[2018-09-19 05:28] LABS: Alanine Aminotransferase 44 Units/L (7-52); Albumin 2.4 g/dL (3.5-5.7); Albumin/Globulin Ratio 0.8 (1.1-2.2); Alkaline Phosphatase 48 Units/L (34-104); Aspartate Amino Transferase 23 Units/L (13-39); BUN/Creatinine Ratio 28 (6-26); Bilirubin,Total 1.1 mg/dL (0.3-1.0); Blood Urea Nitrogen 14 mg/dL (6-20); Carbon Dioxide 27 mEq/L (23-29); Chloride 106 mEq/L (98-107); Globulin 2.9 g/dL (2.4-3.5); Glucose 109 mg/dL (70-105); Osmolality,Calculated 285 (280-300); Potassium 3.5 mEq/L (3.5-5.1); Sodium 137 mEq/L (136-145); Total Protein 5.3 g/dL (6.4-8.9); eGFR For Non-African Americans > 60 (> 60)
[2018-09-19] MEDS: *HR* Heparin 5,000 UNIT/ML VIAL SQ SCH (06:04)
[2018-09-19] MEDS: Nystatin SUSP 5 ML UD.LIQ PO SCH ×2 (09:00→12:32)
[2018-09-19] MEDS: Bisacodyl 10 MG RECTAL SUPPOSITORY RC SCH (09:00)
[2018-09-19] MEDS: Iron Sucrose Complex 250 MG in 0.9 % Sodium Chloride 250 ML IVPB SCH (09:01)
[2018-09-19] MEDS ORDERED: Chloraseptic Spray 177 ML BOTTLE MM PRN (09:05)
[2018-09-19 10:51] VITALS: BP 134/89
--- NOTE | 2018-09-19 11:03 | General Surgery Progress Note ---
Date of Encounter: 09/19/18 Time of Encounter: 11:01 - Assessment and Plan (1) Esophageal carcinoma Current Visit: Yes Status: Acute 53M POD #9 s/p feeding jejunostomy placement complicated by obstruction now POD #4 s/p reduction of torsed bowel at feeding jejunostomy, small bowel resection with revision of feeding jejunostomy; patient with bilious vomiting s/p EGD with placement of NG tube passed GEJ into stomach (prepyloric); last colonoscopy was about 1-2 years ago per family NPO TPN pain control plan for imaging study to evaluate feeding tube will also discuss with family concerning repeat colonoscopy to rule out distal obstruction to the feeding tube Subjective Patient reports: no new complaints, feels better, afebrile Objective Vital Signs - Last 8 Hours Temp Pulse Resp BP Pulse Ox 09/19/18 10:50 98.6 F 102 18 134/89 93 09/19/18 06:50 98.6 F 93 16 126/83 93 09/19/18 04:59 98.8 F 93 16 135/87 94 Intake and Output 09/18/18 09/19/18 09/19/18 23:59 07:59 15:59 Intake Total 362.5 / 362.5 100 / 100 1089 / 1089 Output Total 1000 / 1000 1425 / 1425 1600 / 1600 Balance -637.5 / -637.5 -1325 / -1325 -511 / -511 Intake: IV Fluids 362.5 / 362.5 100 / 100 1089 / 1089 Clinimix E 5%-20% SOLUTION 2, 1089 / 1089 000 ML @ 75 mls/hr IVC .Q24H SANJU with M.v.i. Adult 10 ml with Trace Elements-4 1 ML Rx#: [id number] Ofirmev 1,000 mg/100 ml 1,000 100 / 100 100 / 100 mg In 100 ml @ 400 mls/hr IVPB Q6HR SANJU Rx#:[id number] Venofer 250 MG In 0.9 % Sodium 262.5 / 262.5 Chloride 250 ML @ 130 mls/hr IVPB DAILY SANJU Rx#:[id number] Oral 0 / 0 0 / 0 Output: Urine 600 / 600 925 / 925 900 / 900 Gastric Drainage 400 / 400 500 / 500 700 / 700 Left Upper Quadrant 400 / 400 Right Nare 700 / 700 Other: Meal NPO BREAKFAST # Bowel Movements 0 Weight 97.9 kg Blood Glucose* 109 105 134 Patient Weight 09/19/18 23:59 Weight 97.9 kg - General physical appearance no distress - Respiratory normal expansion, normal respiratory effort - Cardiovascular Cardiovascular exam: Present: RRR - Abdomen Abdomen: Present: soft, tender (appropriately tender; less distended) - Incision Incision: Present: clean and dry, intact - Neurologic CN 2-12 grossly intact - Labs 09/19/18 04:00 09/19/18 04:00 Diabetes panel 09/19/18 Range/Units 04:00 Sodium 137 (136-145) mEq/L Potassium 3.5 (3.5-5.1) mEq/L Chloride 106 (98-107) mEq/L Carbon Dioxide 27 (23-29) mEq/L BUN 14 (6-20) mg/dL Creatinine 0.50 L (0.70-1.30) mg/dL Glucose 109 H (70-105) mg/dL Calcium 8.0 L (8.6-10.3) mg/dL AST 23 (13-39) Units/L ALT 44 (7-52) Units/L Alkaline Phosphatase 48 (34-104) Units/L Albumin 2.4 L (3.5-5.7) g/dL Calcium panel 09/19/18 Range/Units 04:00 Calcium 8.0 L (8.6-10.3) mg/dL Albumin 2.4 L (3.5-5.7) g/dL Pituitary panel 09/19/18 Range/Units 04:00 Sodium 137 (136-145) mEq/L Potassium 3.5 (3.5-5.1) mEq/L Chloride 106 (98-107) mEq/L Carbon Dioxide 27 (23-29) mEq/L BUN 14 (6-20) mg/dL Creatinine 0.50 L (0.70-1.30) mg/dL Glucose 109 H (70-105) mg/dL Calcium 8.0 L (8.6-10.3) mg/dL Adrenal panel 09/19/18 Range/Units 04:00 Sodium 137 (136-145) mEq/L Potassium 3.5 (3.5-5.1) mEq/L Chloride 106 (98-107) mEq/L Carbon Dioxide 27 (23-29) mEq/L BUN 14 (6-20) mg/dL Creatinine 0.50 L (0.70-1.30) mg/dL Glucose 109 H (70-105) mg/dL Calcium 8.0 L (8.6-10.3) mg/dL Total Bilirubin 1.1 H (0.3-1.0) mg/dL AST 23 (13-39) Units/L ALT 44 (7-52) Units/L Alkaline Phosphatase 48 (34-104) Units/L Albumin 2.4 L (3.5-5.7) g/dL Consult Discharge Plan - Plan Referrals: [facility] [Outside]
[2018-09-19] MEDS ORDERED: Clinimix E 5%-20% SOLUTION 2,000 ML with MVI, adult with vitamin K 10 ML, Trace Eleme... IVC SCH (17:00)
== END 2018-09-19 15:30 | disposition critical access hospital (66) | DRG 329 ==
LOC: EMEROOARM 16:26 → 3ANU 16:26
PROVIDERS: ADMIT Surgery; ATTEND Surgery

== ENCOUNTER 2019-05-05 08:01 | Inpatient (IN) ==
[2019-05-05] MEDS ORDERED: Atropine Sulfate 1% 40 DROP/2 ML BOTTLE SL PRN (16:55)
[2019-05-05] MEDS ORDERED: Bisacodyl 10 MG RECTAL SUPPOSITORY RC PRN (16:55)
[2019-05-05] MEDS ORDERED: *HR* HYDROmorphone 20 MG/20 ML PCA IVC PRN (16:57)
--- NOTE | 2019-05-05 17:08 | Pallative History & Physical ---
Date of Encounter: 05/05/19 Time of Encounter: 17:00 Assessment and Plan (1) Cancer associated pain Current visit: Yes Status: Acute Patient in mild distress upon arrival to hospital. REviewed palliative notes from [facility]. Will begin Hydromorphone HOME HEALTH CAREGIVER - 1mg loading dose, with 0.4mg every 10 min and 12 mg 4 hour lockout. Monitor and titrate for comfort. Update: - notified by pharmacy they do not have Hydromorphone HOME HEALTH CAREGIVER available. Will give bolus IV Fentanyl and begin Fentanyl drip at 25mcg per hour and titrate for comfort up to 100mcg/hr. If patient still not comfortable, please contact palliative provider lending consultant. (2) Anxiety Current visit: Yes Status: Acute Lorazepam 1mg every 2 hours as needed for anxiety and monitor. (3) Nausea Current visit: Yes Status: Acute Will have Ondansetron available PRN. (4) Esophageal perforation Current visit: Yes Status: Acute S/p exploratory surg at [facility]. Unable to repair. Comfort measures only (5) Esophageal carcinoma Current visit: No Status: Acute Internal Medicine - H&P: HPI Admitted From: Hospital to Hospital Transfer Plans for Post Hospital Care: Hospice - Home History of present illness: Mr. Armijo is a 53 year old very nice but unfortunate man who was diagnosed with esophageal carcinoma in May 2018. He began chemotherapy, but had several complications and required J-tube placement, Cholecystotomy, and small bowel resection. He sought referral to [facility] for esophagectomy, however, ended up with surgeon from [facility] who recommended complete chemoradiation prior to consideration of surgery. Recently had part of liver removed and cholcysectomy, but they were unable to remove hisi distal esophagus r/t significant metastatic disease. Patient was doing fairly well however at home, but had worsening of pain. He contacted his surgeon at [facility] who recommended he present to ER here at [place], and transfer to [facility]. Patient found to have peritonitis and pneumoperitoneum, and was taken emergently to OR. He had perforation at a site of metastatic cancer not amenable to repair. A kathleen drain was placed. Once patient recovered, discussions were held with him regarding the findings. Palliative care team at [facility] was consulted and goals of care discussion ensued. Patient transitioned to DNR-Comfort care, and his AICD was deactivated. He desired to be closer to home, which is in [place]. Life expectancy days to couple of weeks per [facility] physician. Upon patient arrival, he is grimacing and in significant discomfort, pain /10. No family has arrived, but he is alert and oriented and able to provide information. 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 Has Kathleen drain connected to ESTEFANY bulb. Wound vac present with no drainage noted, and abd binder in place. States has only been taking ice chips. Occasional nausea if "gets Dilaudid pushed too fast". Denies dyspnea. Does have anxiety and states Lorazepam has been helpful. Past Med Surg Social Fam HX - Past Medical History Medical history: arthritis, cancer, COPD, hyperlipidemia, hypertension, other Additional medical history: sleep apnea, esophageal cancer Psychiatric history: PTSD - Past Surgical History Surgical History: AICD Additional surgical history: Old right BKA, partial removal of liver, exploratoy lap, J tube placement, 05/04 exp lap for pneumoperitoneum, kathleen drain placed - Social History Smoking Status: Former smoker Smokeless Tobacco Status: No Alcohol use: none Drug use: none - Family History Maternal Grandmother Living Status: Hx Family Cardiac Disorders: Yes ([place]) Hx Family Respiratory Disorders: No Hx Family Cancer: No Hx Family GI Disorders: No Hx Family Endocrine Disorder: No Hx Family Neuromuscular Disorders: No Hx Family Neurologic Disorders: No Hx Family HEENT Disorders: No Hx Family Autoimmune Disorders: No Father Living Status: Hx Family Cardiac Disorders: No Hx Family Respiratory Disorders: No Hx Family Cancer: Yes (liver) Hx Family GI Disorders: No Hx Family Endocrine Disorder: No Hx Family Neuromuscular Disorders: No Hx Family Neurologic Disorders: No Hx Family HEENT Disorders: No Hx Family Autoimmune Disorders: No Mother Living Status: Still Living Hx Family Cancer: Yes Brother Living Status: Hx Family Cardiac Disorders: Yes Internal Medicine - H&P: Meds Aspirin [Lo-Dose Aspirin EC] 81 mg PO DAILY 12/03/18 [History] Bp Med 1 tab PO BID 12/03/18 [History] Cyclobenzaprine [Flexeril] 10 mg PO HS PRN #7 tablet 12/16/18 [Rx] Magic Mouthwash [Magic Mouthwash BLM] 10 ml PO QID PRN #240 ml 12/31/18 [Rx] Omeprazole [PriLOSEC] 40 mg PO DAILY #30 cap 01/04/19 [Rx] Sucralfate [Carafate] 1 gm PO TID #90 tablet 01/04/19 [Rx] Ondansetron Oral Soln [Zofran Oral Soln] 8 mg PO TID PRN #240 solution 01/21/19 [Rx] Allergy/AdvReac Type Severity Reaction Status Date / Time lisinopril AdvReac Cough Verified 05/03/19 11:22 All systems: reviewed and no additional remarkable complaints except as stated (abd pain 7/10, occasional nausea, anxiety, weakness) Palliative Care-Exam - Constitutional General appearance: Present: mild distress, thin - Head Head Exam: Present: normal inspection, normocephalic - Respiratory Respiratory exam: Present: CTAB - Cardiovascular Cardiovascular exam: Present: +S1, +S2 - GI/Abdominal Exam additional comments: Binder present to abd Kathleen tube to bulb suction with sm amount bloody drainage. Wound vac to abd incision - Additional comments: Voiding per urinal - Extremities Exam Additional comments: Old rt BKA - Neurological Exam Neurological exam: Present: alert, oriented X3, strengths equal and symetr throughout - Psychiatric Psychiatric exam: Present: anxious - Skin Skin exam: Present: dry, pallor, warm Palliative Quality Palliative Quality: Screen for Code Status: Yes, Screen for Goals of Care: Yes, Screen for Pain: Yes, If Pain Regimen Started, Initiate Bowel Regimen: Yes, Screen for Nausea/Vomitting: Yes Code Status: 05/05/19 16:55 Resuscitation Status: Active [RES] Routine Comment: Resuscitation Status: DNR-Comfort Care
[2019-05-05] MEDS ORDERED: *HR* FentaNYL (PF) 100 MCG/2 ML VIAL IVP ONE (17:15)
[2019-05-05] MEDS: *HR* LORazepam 2 MG/ML VIAL IVP PRN ×2 (17:20→19:26)
[2019-05-05] MEDS ORDERED: 0.9 % Sodium Chloride 250 ML ONE (18:34)
[2019-05-05] MEDS: FentaNYL (PF) 1,000 MCG in 0.9 % Sodium Chloride 80 ML IVC SCH (18:38)
[2019-05-06] MEDS ORDERED: 0.9 % Sodium Chloride 500 ML ONE (03:20)
[2019-05-06] MEDS: *HR* FentaNYL (PF) 100 MCG/2 ML VIAL IVP PRN ×9 (03:21→22:22)
[2019-05-06] MEDS: *HR* LORazepam 2 MG/ML VIAL IVP PRN ×3 (05:07→20:26)
[2019-05-06] MEDS: Pantoprazole 40 MG VIAL IVP SCH (07:57)
[2019-05-06] MEDS: FentaNYL (PF) 1,000 MCG in 0.9 % Sodium Chloride 80 ML IVC SCH ×2 (08:00→19:17)
--- NOTE | 2019-05-06 11:32 | Palliative Progress Note ---
Date of Encounter: 05/06/19 Time of Encounter: 11:20 - Assessment and plan (1) Cancer associated pain Current Visit: Yes Status: Acute Assessment and plan: Continue current regimen - Fentanyl currently at 100nmcg/hr. Has 25 hourly for breakthrough if needed. Has utilized x2 last 24 hours. Monitor (2) Hiccoughs Current Visit: Yes Status: Acute Assessment and plan: Patient with perforation, Thorazine po likely not effective. Will trial Reglan 10mg every 8 hours x 2 days and see if this is effective for him. (3) Anxiety Current Visit: Yes Status: Acute Assessment and plan: Patient states Lorazepam has been helpful. Utilized x 4 last 24 hours. Monitor and adjust if needed. (4) Nausea Current Visit: Yes Status: Acute Assessment and plan: Has Ondansetron available if needed. Has not utilized. (5) Esophageal perforation Current Visit: Yes Status: Acute (6) Esophageal carcinoma Current Visit: No Status: Acute - Time Spent With Patient Total time spent is greater than 50% in coordination of care (as documented) at patient's floor/unit and/or counseling patient: - Subjective Interval history: Patient awake and alert, Phoebe at bedside. Fentanyl drip that was began around 1800 last pm at 25mcg did require titration up to 100mcg overnight. He states at this time he is comfortable, states only thing that is bothering him is hiccoughs. States these increase his abd pain. Rested fairly well last night. states that the grandchildren they have custody of will be in tomorrow when the have "more help" with the 3 yr old. Granddaughter currently in [place] will be traveling home today. occupational rehabilitation aide in to assist with bath. Patient is asking for something cold other than ice - provided flavored ice cups at bedside. - Constitutional General appearance: Present: no acute distress - Respiratory Respiratory exam: Present: decreased breath sounds, CTAB - Cardiovascular Cardiovascular exam: Present: tachycardia - GI/Abdominal Additional comments: Abd binder intact. Wound vac patent. Raffi drain to bulb suction with bloody drainage. - Extremities Exam Additional comments: Old rt BKA - Neurological Exam Neurological exam: Present: alert, oriented X3, strengths equal and symetr throughout - Skin Skin exam: Present: dry, pallor, warm Palliative Quality Palliative Quality: Screen for Code Status: Yes, Screen for Goals of Care: Yes, Screen for Pain: Yes, If Pain Regimen Started, Initiate Bowel Regimen: Yes, Screen for Nausea/Vomitting: Yes Code Status: 05/05/19 16:55 Resuscitation Status: Active [RES] Routine Comment: Resuscitation Status: DNR-Comfort Care Consult Discharge Plan - Plan [facility] [Primary Care Provider] -
[2019-05-06] MEDS: Metoclopramide 10 MG/2 ML VIAL IVP SCH ×2 (13:04→15:12)
[2019-05-07] MEDS ORDERED: 0.9 % Sodium Chloride 500 ML ONE
[2019-05-07] MEDS: Metoclopramide 10 MG/2 ML VIAL IVP SCH ×3 (00:04→16:26)
[2019-05-07] MEDS: *HR* FentaNYL (PF) 100 MCG/2 ML VIAL IVP PRN ×10 (00:43→22:46)
[2019-05-07] MEDS: FentaNYL (PF) 1,000 MCG in 0.9 % Sodium Chloride 80 ML IVC SCH ×2 (00:50→09:19)
[2019-05-07] MEDS: *HR* LORazepam 2 MG/ML VIAL IVP PRN ×6 (02:44→20:19)
[2019-05-07] MEDS: Pantoprazole 40 MG VIAL IVP SCH (07:41)
--- NOTE | 2019-05-07 12:06 | Palliative Progress Note ---
Date of Encounter: 05/07/19 Time of Encounter: 11:40 - Assessment and plan (1) Cancer associated pain Current Visit: Yes Status: Acute Assessment and plan: Patient's pain is worsening. He required 11 prn doses of fentanyl in 24hrs, with Fentanyl drip 150 mcg/hr -will increase max to 250 mcg/h - continue fentanyl 25 mcg IV q1hr prn monitor. (2) Anxiety Current Visit: Yes Status: Acute Assessment and plan: Ativan in place, received 4 doses in 24 hrs. (3) Hiccoughs Current Visit: Yes Status: Acute Assessment and plan: Continues to have hiccups, with worsening of pain. continue trial Reglan 10mg every 8 hours x 2 days (4) Esophageal perforation Current Visit: Yes Status: Acute (5) Esophageal carcinoma Current Visit: No Status: Acute (6) Hospice care Current Visit: Yes Status: Acute Assessment and plan: Patient continue to require GIP admission for symptom management and daily medication adjustment. Patient is not expected to survive current admission. - Time Spent With Patient Total time spent is greater than 50% in coordination of care (as documented) at patient's floor/unit and/or counseling patient: 25 - 35 minutes - Subjective Interval history: Patient was AAO x3, in acute distress due to pain. Fentanyl drip currently at 150 mcg/hr, and pt used 11 prn doses. Discussed with patient that drip will be increased, and that as it happens he might become more drowsy and sedated. He agrees. Drip increased to 174 mcg/hr, will increase max to 250 mcg.Patient received some flavored ice and a couple of scoops of ice cream yesterday. Today he states he is ok with ice chips. Patient's Phoebe and 3 grand-children at the bedside. Older grand-daughter is 18 y.o., discussed with her what to expect during the dying process. All questions answered. Emotional support provided. - Constitutional Exam: - Constitutional General appearance: Present: no acute distress - Respiratory Respiratory exam: Present: decreased breath sounds, CTAB - Cardiovascular Cardiovascular exam: Present: tachycardia - GI/Abdominal Additional comments: Abd binder intact. Wound vac patent. Raffi drain to bulb suction with bloody drainage, tenderness to palpation - Extremities Exam Additional comments: Old rt BKA - Neurological Exam Neurological exam: Present: alert, oriented X3, strengths equal and symetr throughout - Skin Skin exam: Present: dry, pallor, warm Palliative Quality Palliative Quality: Screen for Code Status: Yes, Screen for Goals of Care: Yes, Screen for Pain: Yes, If Pain Regimen Started, Initiate Bowel Regimen: Yes, Screen for Nausea/Vomitting: Yes Code Status: 05/05/19 16:55 Resuscitation Status: Active [RES] Routine Comment: Resuscitation Status: DNR-Comfort Care Palliative Scale - Palliative Performance Scale How ambulatory is this patient?: Totally bed bound What is patient's level of activity and evidence of disease?: Unable to do most activity, Extensive disease How much self-care assistance does patient require?: Mainly assistance How much oral intake does the patient have?: Minimal to sips What is this patient's level of consciousness?: Full Palliative Performance Score: 30 % Consult Discharge Plan - Plan [facility]errals: [facility] [Primary Care Provider] -
[2019-05-07] MEDS ORDERED: FentaNYL (PF) 1,000 MCG in 0.9 % Sodium Chloride 80 ML IVC SCH (12:21)
[2019-05-07] MEDS: FentaNYL (PF) 2,500 MCG in EMPTY BAG 1 EACH IVC SCH (20:14)
[2019-05-08] MEDS: *HR* LORazepam 2 MG/ML VIAL IVP PRN ×5 (00:21→21:20)
[2019-05-08] MEDS: Metoclopramide 10 MG/2 ML VIAL IVP SCH (00:21)
[2019-05-08] MEDS ORDERED: 0.9 % Sodium Chloride 500 ML ONE (03:07)
[2019-05-08] MEDS: *HR* FentaNYL (PF) 100 MCG/2 ML VIAL IVP PRN ×3 (06:20→20:35)
[2019-05-08] MEDS: FentaNYL (PF) 2,500 MCG in EMPTY BAG 1 EACH IVC SCH ×3 (07:14→22:48)
[2019-05-08] MEDS: Pantoprazole 40 MG VIAL IVP SCH (09:02)
--- NOTE | 2019-05-08 13:17 | Palliative Progress Note ---
Date of Encounter: 05/08/19 Time of Encounter: 10:00 - Assessment and plan (1) Cancer associated pain Current Visit: Yes Status: Acute Assessment and plan: Pain has improved, Fentanyl drip is now at 250mcg/h - Pt had an episode of confusion and is drowsy. Will attempt titrating down, but goal remains to favor comfort. - continue fentanyl 25 mcg IV q1hr prn monitor. (2) Anxiety Current Visit: Yes Status: Acute Assessment and plan: Ativan in place, received 6 doses in 24 hrs. Per patient he was more anxious yesterday due to having a lot of visitor. He feels better today. (3) Hiccoughs Current Visit: Yes Status: Acute Assessment and plan: Continues to have hiccups, with worsening of pain. continue trial Reglan 10mg every 8 hours x 2 days (4) Esophageal perforation Current Visit: Yes Status: Acute Assessment and plan: Continues to have hiccups, with worsening of pain. continue trial Reglan 10mg every 8 hours x 2 days (5) Esophageal carcinoma Current Visit: No Status: Acute (6) Goals of care, counseling/discussion Current Visit: Yes Status: Acute Assessment and plan: Patient expressed the wish to have a picnic with all his family. Hospice nurse is willing to help and supervise pt and medication during the picnic. Patient has not has any significant po intake for several days ad is not expected to have any due to perforation, as such I recommend that this be scheduled as soon as tomorrow to give pt the best chances to participate. Due to the weather forecast, it might be difficult to go outside, may need to use an inside area for the gathering. Patient would be agreeable as he just wants to "see happy faces". However he would like to step out at a certain point and smoke a cigarette. Will involve trash hauler, SW and administration to make this wish come true. (7) Hospice care Current Visit: Yes Status: Acute Assessment and plan: Patient continue to require GIP admission for symptom management and daily medication adjustment. Patient is not expected to survive current admission. - Time Spent With Patient Total time spent is greater than 50% in coordination of care (as documented) at patient's floor/unit and/or counseling patient: Greater than 35 minutes - Subjective Interval history: Patient was sleeping peacefully, aroused easily. He stated pain is a 3/10, which was well controlled, except for the episodes of hiccups. Fentanyl drip was increased to the max of 250mcg, and pt has not needed any prn doses since 6:20 am. Pt's mother and were present at the bedside. Of note, pt this morning called his mother with feeling scared and confused, and has been more drowsy. Explained that opioids can cause drowsiness and confusion. I discussed these side effects with pt before dose increase, and again this morning. Pt states his focus is on comfort and he ok with the side effects. However, we will give a trial at decreasing the drip dose, to the lowest dose that still keeps the pain at a bearable level. Nurse was present. - Constitutional Exam: Exam: - Constitutional General appearance: Present: no acute distress - Respiratory Respiratory exam: Present: decreased breath sounds, CTAB - Cardiovascular Cardiovascular exam: Present: tachycardia - GI/Abdominal Additional comments: Abd binder intact. Wound vac patent. Raffi drain to bulb suction with bloody drainage, tenderness to palpation - Extremities Exam Additional comments: Old rt BKA - Neurological Exam Neurological exam: Present: alert, oriented X3, strengths equal and symetr throughout - Skin Skin exam: Present: dry, pallor, warm Palliative Quality Palliative Quality: Screen for Code Status: Yes, Screen for Goals of Care: Yes, Screen for Pain: Yes, If Pain Regimen Started, Initiate Bowel Regimen: Yes, Screen for Nausea/Vomitting: Yes Code Status: 05/05/19 16:55 Resuscitation Status: Active [RES] Routine Comment: Resuscitation Status: DNR-Comfort Care Palliative Scale - Palliative Performance Scale How ambulatory is this patient?: Totally bed bound What is patient's level of activity and evidence of disease?: Unable to do most activity, Extensive disease How much self-care assistance does patient require?: Mainly assistance How much oral intake does the patient have?: Minimal to sips What is this patient's level of consciousness?: Full Palliative Performance Score: 30 % Consult Discharge Plan - Plan [facility]errals: [facility] [Primary Care Provider] -
[2019-05-09] MEDS ORDERED: 0.9 % Sodium Chloride 500 ML ONE (00:01)
[2019-05-09] MEDS: *HR* LORazepam 2 MG/ML VIAL IVP PRN (00:03)
[2019-05-09] MEDS: *HR* FentaNYL (PF) 100 MCG/2 ML VIAL IVP PRN ×11 (05:23→23:22)
[2019-05-09] MEDS: Pantoprazole 40 MG VIAL IVP SCH (07:56)
[2019-05-09] MEDS ORDERED: *HR* FentaNYL (PF) 100 MCG/2 ML VIAL IVP PRN (09:03)
--- NOTE | 2019-05-09 09:12 | Palliative Progress Note ---
Date of Encounter: 05/09/19 Time of Encounter: 09:00 - Assessment and plan (1) Cancer associated pain Current Visit: Yes Status: Acute Assessment and plan: Fentanyl currently at 250mcg/hr with 25mcg bolus for breakthrough. Has required 3 bolus doses last 24 hours. Patient may have a lot of activity today - family picnic being planned - will increase bolus dose to 50mcg and monitor. (2) Hiccoughs Current Visit: Yes Status: Acute Assessment and plan: Will reorder and schedule REglan every 8 hours. Patient thinks this may have helped a little. (3) Anxiety Current Visit: Yes Status: Acute Assessment and plan: Continue Lorazepam IV PRN. Required x4 last 24 hours. (4) Nausea Current Visit: Yes Status: Acute (5) Esophageal perforation Current Visit: Yes Status: Acute (6) Esophageal carcinoma Current Visit: No Status: Acute - Time Spent With Patient Total time spent is greater than 50% in coordination of care (as documented) at patient's floor/unit and/or counseling patient: - Subjective Interval history: Patient awake and alert, feeling pretty comfortable at this moment, but overall pain increased over weekend and Fentanyl drip was increased to 250mcg/hr. Still with some hiccups. Asking for carnation instant breakfast and ensure. Brief picnic being planned by hospice for hopefully late afternoon. - Constitutional General appearance: Present: no acute distress - Respiratory Respiratory exam: Present: CTAB - Cardiovascular Cardiovascular exam: Present: +S1, +S2, tachycardia - GI/Abdominal Additional comments: Binder in place. Raffi drain with small amount bloody drainage. Wound vac intact. 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 - Neurological Exam Neurological exam: Present: alert, oriented X3, strengths equal and symetr throughout - Skin Skin exam: Present: dry, pallor, warm Palliative Quality Palliative Quality: Screen for Code Status: Yes, Screen for Goals of Care: Yes, Screen for Pain: Yes, If Pain Regimen Started, Initiate Bowel Regimen: Yes, Screen for Nausea/Vomitting: Yes Code Status: 05/05/19 16:55 Resuscitation Status: Active [RES] Routine Comment: Resuscitation Status: DNR-Comfort Care Palliative Scale - Palliative Performance Scale How ambulatory is this patient?: Totally bed bound What is patient's level of activity and evidence of disease?: Unable to do most activity, Extensive disease How much self-care assistance does patient require?: Mainly assistance How much oral intake does the patient have?: Minimal to sips What is this patient's level of consciousness?: Full Palliative Performance Score: 30 % Consult Discharge Plan - Plan [facility]errals: [facility] [Primary Care Provider] -
[2019-05-09] MEDS: FentaNYL (PF) 2,500 MCG in EMPTY BAG 1 EACH IVC SCH ×2 (09:23→19:05)
[2019-05-09] MEDS: Metoclopramide 10 MG/2 ML VIAL IVP SCH ×3 (09:25→23:22)
[2019-05-10] MEDS: *HR* FentaNYL (PF) 100 MCG/2 ML VIAL IVP PRN ×9 (01:21→21:45)
[2019-05-10] MEDS: FentaNYL (PF) 2,500 MCG in EMPTY BAG 1 EACH IVC SCH ×3 (04:08→22:40)
[2019-05-10] MEDS: Pantoprazole 40 MG VIAL IVP SCH (07:37)
[2019-05-10] MEDS: Metoclopramide 10 MG/2 ML VIAL IVP SCH ×3 (07:37→22:41)
--- NOTE | 2019-05-10 09:04 | Palliative Progress Note ---
Date of Encounter: 05/10/19 Time of Encounter: 09:00 - Assessment and plan (1) Cancer associated pain Current Visit: Yes Status: Acute Assessment and plan: Patient has required an extra 400mcg Fentanyl since yesterday afternoon. Will increase Fentanyl drip to 275 mcg. Unfortunately, with his esophageal mass/perforation, I do not feel he would tolerate SL liquids well. (2) Hiccoughs Current Visit: Yes Status: Acute Assessment and plan: Continue IV Reglan scheduled every 8 hours. (3) Anxiety Current Visit: Yes Status: Acute Assessment and plan: Continue IV Lorazepam. Received x1 last 24 hours. (4) Nausea Current Visit: Yes Status: Acute (5) Esophageal perforation Current Visit: Yes Status: Acute (6) Esophageal carcinoma Current Visit: No Status: Acute (7) Hospice care patient Current Visit: Yes Status: Acute Assessment and plan: Patient appears weaker. Has had changes in his breathing pattern. Still requiring increase in Fentanyl drip and had multiple boluses for breakthrough yesterday. His needs still require inpatient management for titration of his medications. It is doubtful he will survive GIP stay. - Time Spent With Patient Total time spent is greater than 50% in coordination of care (as documented) at patient's floor/unit and/or counseling patient: - Subjective Interval history: Patient was able to have a wish fulfilled to go outside and spend time with family yesterday, however, did have increase in pain afterward requiring multiple doses of IVP Fentanyl for breakthrough pain. He had another dose prior to my visit, and is now sleeping. He appears weaker, and having periods 8-10 sec periods of apnea. Vitals remain stable. No family at bedside yet today. - Constitutional General appearance: Present: no acute distress - Respiratory Respiratory exam: Present: decreased breath sounds Additional comments: Irreg respirations with 8-10 sec periods of apnea when sleeping.. - Cardiovascular Cardiovascular exam: Present: +S1, +S2 - GI/Abdominal Additional comments: Abd binder in place. Wet to dry dressing intact. Raffi drain intact with scant drainage. - Extremities Exam Extremities exam: Present: normal capillary refill, normal inspection - Skin Skin exam: Present: dry, pallor, warm Palliative Quality Palliative Quality: Screen for Code Status: Yes, Screen for Goals of Care: Yes, Screen for Pain: Yes, If Pain Regimen Started, Initiate Bowel Regimen: Yes, Screen for Nausea/Vomitting: Yes Code Status: 05/05/19 16:55 Resuscitation Status: Active [RES] Routine Comment: Resuscitation Status: DNR-Comfort Care Palliative Scale - Palliative Performance Scale How ambulatory is this patient?: Totally bed bound What is patient's level of activity and evidence of disease?: Unable to do most activity, Extensive disease How much self-care assistance does patient require?: Mainly assistance How much oral intake does the patient have?: Minimal to sips What is this patient's level of consciousness?: Full Palliative Performance Score: 30 % Consult Discharge Plan - Plan [facility]errals: [facility] [Primary Care Provider] -
[2019-05-10] MEDS: Ondansetron 4 MG/2 ML VIAL IVP PRN (09:59)
[2019-05-10] MEDS: *HR* LORazepam 2 MG/ML VIAL IVP PRN ×2 (09:59→22:43)
[2019-05-11] MEDS: *HR* FentaNYL (PF) 100 MCG/2 ML VIAL IVP PRN ×9 (03:48→21:20)
[2019-05-11] MEDS: Metoclopramide 10 MG/2 ML VIAL IVP SCH ×2 (08:08→15:58)
[2019-05-11] MEDS: FentaNYL (PF) 2,500 MCG in EMPTY BAG 1 EACH IVC SCH ×2 (08:08→17:22)
[2019-05-11] MEDS: Pantoprazole 40 MG VIAL IVP SCH (08:08)
--- NOTE | 2019-05-11 10:25 | Palliative Progress Note ---
Date of Encounter: 05/11/19 Time of Encounter: 09:00 - Assessment and plan (1) Cancer associated pain Current Visit: Yes Status: Acute Assessment and plan: Continue Fentanyl at current rate of 275mcg with boluses PRN. Utilized x6 last 24 hours. He appears very comfortable at this time. 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 (4) Nausea Current Visit: Yes Status: Acute (5) Esophageal perforation Current Visit: Yes Status: Acute (6) Esophageal carcinoma Current Visit: No Status: Acute (7) Hospice care patient Current Visit: Yes Status: Acute Assessment and plan: Continue GIP stay. Patient still requiring Fentanyl drip and this had to be increased yesterday. I do not think he can be managed at this time outside of the inpatient setting. He does appear weaker, and is having some periods of apnea. - Time Spent With Patient Total time spent is greater than 50% in coordination of care (as documented) at patient's floor/unit and/or counseling patient: - Subjective Interval history: Patient was sleeping quietly on my visit, no family yet at bedside. Does have 8-10 sec periods of apnea when sleeping. Vitals fairly stable, blood pressure has drifted down a little and remains tachycardic - heart rate usually 100-110. Afebrile. - Constitutional General appearance: Present: no acute distress - Respiratory Respiratory exam: Present: decreased breath sounds, CTAB - Cardiovascular Cardiovascular exam: Present: +S1, +S2, tachycardia - GI/Abdominal GI/Abdominal exam: Present: normal bowel sounds, soft Additional comments: Abd binder remains in place. Raffi drain to bulb suction. Wet-dry dressing in place. - Extremities Exam Extremities exam: Present: normal capillary refill, normal inspection - Neurological Exam Neurological exam: Present: alert, oriented X3 - Skin Skin exam: Present: dry, pallor, warm Palliative Quality Palliative Quality: Screen for Code Status: Yes, Screen for Goals of Care: Yes, Screen for Pain: Yes, If Pain Regimen Started, Initiate Bowel Regimen: Yes, Screen for Nausea/Vomitting: Yes Code Status: 05/05/19 16:55 Resuscitation Status: Active [RES] Routine Comment: Resuscitation Status: DNR-Comfort Care Palliative Scale - Palliative Performance Scale How ambulatory is this patient?: Totally bed bound What is patient's level of activity and evidence of disease?: Unable to do most activity, Extensive disease How much self-care assistance does patient require?: Mainly assistance How much oral intake does the patient have?: Minimal to sips What is this patient's level of consciousness?: Full Palliative Performance Score: 30 % Consult Discharge Plan - Plan [facility]errals: [facility] [Primary Care Provider] -
[2019-05-12] MEDS: Metoclopramide 10 MG/2 ML VIAL IVP SCH ×3 (00:49→15:45)
[2019-05-12] MEDS: FentaNYL (PF) 2,500 MCG in EMPTY BAG 1 EACH IVC SCH ×3 (03:15→21:33)
[2019-05-12] MEDS: *HR* FentaNYL (PF) 100 MCG/2 ML VIAL IVP PRN ×6 (05:25→16:05)
[2019-05-12] MEDS: Pantoprazole 40 MG VIAL IVP SCH (07:51)
--- NOTE | 2019-05-12 10:28 | Palliative Progress Note ---
Date of Encounter: 05/12/19 Time of Encounter: 10:16 - Assessment and plan (1) Cancer associated pain Current Visit: Yes Status: Acute Assessment and plan: Continue Fentanyl at current rate of 275mcg with boluses PRN. Utilized x9 last 24 hours. He states to be comfortable most of the time, except when he has hiccups. Would like to keep current drip, to avoid excessive drowsiness. Patient is able to tolerate milk. Will try morphine SL prn as the effect last longer. (2) Constipation Current Visit: Yes Status: Acute Assessment and plan: Patient is noticing a reduction in amount of BM, yesterday he has a very small BM. Discussed that with opiates, he will need a bowel regimen, and being unable to take pills, will use Dulcolax supp. patient agreeable. (3) Anxiety Current Visit: Yes Status: Acute Assessment and plan: Ativan in place, need reduced to 2 doses yesterday. (4) Hiccoughs Current Visit: Yes Status: Acute Assessment and plan: Continues to have hiccups, with worsening of pain. he states Reglan helps. continue Reglan 10mg every 8 hours (5) Esophageal perforation Current Visit: Yes Status: Acute (6) Esophageal carcinoma Current Visit: No Status: Acute (7) Goals of care, counseling/discussion Current Visit: Yes Status: Acute Assessment and plan: Patient's PO intake is improving. Discussed that if remains stable, that will change prognosis to weeks. Discussed with patient that we will then need an exit plan, to a more custodial location. Home may not be a good option as patient is on IV medications and due to esophageal perforation, transition to PO may not be possible; also is not able to provide 24hr care. [facility] is a , [facility]. At this point patient continue to need GIP for pain management and daily medication adjustment. [facility] [place] was made aware. Patient would like some more opportunity to go outside on a wheelchair. Discussed with hospice nurse, to be arranged. (8) Hospice care Current Visit: Yes Status: Acute Assessment and plan: Patient continue to require GIP admission for symptom management and daily medication adjustment. Patient is not expected to survive current admission. - Time Spent With Patient Total time spent is greater than 50% in coordination of care (as documented) at patient's floor/unit and/or counseling patient: - Subjective Interval history: Patient was awake, in moderate distress due to hiccups. Fentanyl drip remains at 375mcg/h, he used 9 doses of prn in 24hrs. He states the prn needs is mostly correlated with hiccups. Patient is drinking milk this morning and tolerating it well. - Constitutional Exam: Constitutional Exam: - Constitutional General appearance: Present: no acute distress - Respiratory Respiratory exam: Present: decreased breath sounds, CTAB - Cardiovascular Cardiovascular exam: Present: tachycardia - GI/Abdominal Additional comments: Abd binder intact. Wet to dry dressing in place, sutures intact, appear to be healing well, no signs of infection. Raffi drain to bulb suction with scant bloody drainage, tenderness to palpation - Extremities Exam Additional comments: Old rt BKA - Neurological Exam Neurological exam: Present: alert, oriented X3, strengths equal and symetr throughout - Skin Skin exam: Present: dry, pallor, warm Palliative Quality Palliative Quality: Screen for Code Status: Yes, Screen for Goals of Care: Yes, Screen for Pain: Yes, If Pain Regimen Started, Initiate Bowel Regimen: Yes, Screen for Nausea/Vomitting: Yes Code Status: 05/05/19 16:55 Resuscitation Status: Active [RES] Routine Comment: Resuscitation Status: DNR-Comfort Care Palliative Scale - Palliative Performance Scale How ambulatory is this patient?: Totally bed bound What is patient's level of activity and evidence of disease?: Unable to do most activity, Extensive disease How much self-care assistance does patient require?: Mainly assistance How much oral intake does the patient have?: Minimal to sips What is this patient's level of consciousness?: Full Palliative Performance Score: 30 % Consult Discharge Plan - Plan [facility]errals: [facility] [Primary Care Provider] -
[2019-05-12] MEDS: *HR* LORazepam 2 MG/ML VIAL IVP PRN ×3 (11:34→18:20)
[2019-05-12] MEDS ORDERED: MORPHINE SUL Oral CONC 10 MG/0.5 ML ORAL.SYG SL PRN (14:38)
[2019-05-13] MEDS: Metoclopramide 10 MG/2 ML VIAL IVP SCH ×4 (00:23→23:00)
[2019-05-13] MEDS: Ondansetron 4 MG/2 ML VIAL IVP PRN ×3 (03:07→18:45)
[2019-05-13] MEDS: FentaNYL (PF) 2,500 MCG in EMPTY BAG 1 EACH IVC SCH ×2 (07:00→16:02)
[2019-05-13] MEDS: *HR* FentaNYL (PF) 100 MCG/2 ML VIAL IVP PRN ×3 (08:59→18:45)
[2019-05-13] MEDS: Pantoprazole 40 MG VIAL IVP SCH (08:59)
--- NOTE | 2019-05-13 09:37 | Palliative Progress Note ---
Date of Encounter: 05/13/19 Time of Encounter: 09:00 - Assessment and plan (1) COPD (chronic obstructive pulmonary disease) Current Visit: No Status: Acute Qualifiers: COPD type: unspecified COPD Qualified Code(s): J44.9 - Chronic obstructive pulmonary disease, unspecified (2) Cancer associated pain Current Visit: Yes Status: Acute Assessment and plan: Patient reports pain well controlled at this time. Continue Fentanyl drip. Reduced Roxanol to 10 mg SL for attempt at greater pain control without increased confusion. (3) Goals of care, counseling/discussion Current Visit: Yes Status: Acute Assessment and plan: Plan at this time to continue to work on pain control, with intent to transition to transdermal and oral dosing for discharge planning. Patient to remain GIP at this time. (4) Hospice care patient Current Visit: Yes Status: Acute (5) Constipation Current Visit: Yes Status: Acute Assessment and plan: Encouraged patient to utilize suppository today. Patient agreeable with this plan. Primary RN notified. (6) Esophageal carcinoma Current Visit: No Status: Acute - Time Spent With Patient Total time spent is greater than 50% in coordination of care (as documented) at patient's floor/unit and/or counseling patient: Spent 30 minutes in consultation and care of patient. 25 - 35 minutes - Subjective Interval history: Patient awake, alert, and oriented times 3 upon arrival for assessment. Reports pain is well controlled. Denies nausea and vomiting. Reports 1 time episode of nausea last night, received Zofran and improved. Reports yesterday as a "wild day" as he had received "something for pain" and then became "completely not with it." Patient had received 1 time dose Roxanol at 30 mg yesterday afternoon, followed up with primary nurse whom reports per verbal report had been told the Morphine made him very confused. Patient was upset that he missed some visitation with some company he was excited to visit with, as it had been a while. Patient has required Fentanyl 275 mcg drip, 6 doses of Fentanyl IVP breakthrough, and 1 dose of Roxanol. Patient also received 5 doses Ativan in the last 24 hours. Patient denies bowel movement over the last 24 hours, encouraged to take Dulcolax suppository today, informed primary nurse patient would need. - Constitutional General appearance: Present: cooperative, no acute distress - Head Head exam: Present: atraumatic, normal inspection - Eye Eye exam: Present: EOMI. Absent: periorbital swelling, periorbital tenderness Pupils: Present: normal accommodation - ENT ENT exam: Present: mucous membranes dry, normal external ear exam - Neck Neck exam: Present: full ROM, normal inspection - Respiratory Respiratory exam: Present: CTAB. Absent: accessory muscle use, respiratory distress - Cardiovascular Cardiovascular exam: Present: +S1, +S2 - GI/Abdominal GI/Abdominal exam: Present: hypoactive bowel sounds, soft. Absent: tenderness - Rectal Rectal exam: Present: deferred - exam: Present: normal inspection - Extremities Exam Extremities exam: Present: normal inspection. Absent: pedal edema Additional comments: patient has right BKA. - Back Exam Back exam: Present: normal inspection - Neurological Exam Neurological exam: Present: alert, oriented X3, strengths equal and symetr throughout. Absent: altered - Psychiatric Psychiatric exam: Present: normal affect, normal mood - Skin Skin exam: Present: normal color, warm Palliative Quality Palliative Quality: Screen for Code Status: Yes, Screen for Goals of Care: Yes, Screen for Pain: Yes, If Pain Regimen Started, Initiate Bowel Regimen: Yes, Screen for Nausea/Vomitting: Yes Code Status: 05/05/19 16:55 Resuscitation Status: Active [RES] Routine Comment: Resuscitation Status: DNR-Comfort Care Palliative Scale - Palliative Performance Scale How ambulatory is this patient?: Totally bed bound What is patient's level of activity and evidence of disease?: Unable to do most activity, Extensive disease How much self-care assistance does patient require?: Mainly assistance How much oral intake does the patient have?: Minimal to sips What is this patient's level of consciousness?: Full Palliative Performance Score: 30 % Consult Discharge Plan - Plan [facility]errals: [facility] [Primary Care Provider] -
[2019-05-13] MEDS: MORPHINE SUL Oral CONC 10 MG/0.5 ML ORAL.SYG SL PRN (15:28)
[2019-05-14] MEDS: Ondansetron 4 MG/2 ML VIAL IVP PRN ×2 (00:32→06:12)
[2019-05-14] MEDS: FentaNYL (PF) 2,500 MCG in EMPTY BAG 1 EACH IVC SCH ×3 (00:34→19:09)
[2019-05-14] MEDS: *HR* FentaNYL (PF) 100 MCG/2 ML VIAL IVP PRN ×4 (03:18→23:47)
[2019-05-14] MEDS: Metoclopramide 10 MG/2 ML VIAL IVP SCH ×3 (09:03→23:47)
[2019-05-14] MEDS: Pantoprazole 40 MG VIAL IVP SCH (09:03)
[2019-05-14] MEDS: MORPHINE SUL Oral CONC 10 MG/0.5 ML ORAL.SYG SL PRN ×2 (09:03→12:37)
[2019-05-14] MEDS: *HR* Promethazine 25 MG/ML VIAL IVP PRN (10:33)
--- NOTE | 2019-05-14 11:12 | Palliative Progress Note ---
Date of Encounter: 05/14/19 Time of Encounter: 09:00 - Assessment and plan (1) COPD (chronic obstructive pulmonary disease) Current Visit: No Status: Acute Qualifiers: COPD type: unspecified COPD Qualified Code(s): J44.9 - Chronic obstructive pulmonary disease, unspecified (2) Cancer associated pain Current Visit: Yes Status: Acute Assessment and plan: Patient reports pain well controlled at this time. Continue Fentanyl drip. Continue Roxanol at 10 mg SL for attempt at greater pain control without increased confusion. (3) Goals of care, counseling/discussion Current Visit: Yes Status: Acute Assessment and plan: Plan at this time to continue to work on pain control, with intent to transition to transdermal and oral dosing for discharge planning. Patient to remain GIP at this time. (4) Hospice care patient Current Visit: Yes Status: Acute (5) Constipation Current Visit: Yes Status: Acute (6) Esophageal carcinoma Current Visit: No Status: Acute (7) Nausea & vomiting Current Visit: Yes Status: Acute Assessment and plan: Patient has received 4 doses Zofran in the last 24 hours. Continue PRN. Add Phenergan PRN. Qualifiers: Vomiting type: unspecified Vomiting Intractability: non-intractable Qualified Code(s): R11.2 - Nausea with vomiting, unspecified - Time Spent With Patient Total time spent is greater than 50% in coordination of care (as documented) at patient's floor/unit and/or counseling patient: - Subjective Interval history: Patient more lethargic today, remains oriented times 3 upon arrival for assessment. Reports pain is well controlled. Complaints of increased nausea, despite Zofran administration (x4 in the last 24 hours). Patient had received 2 time dose Roxanol at 10 mg in the last 24 hours, no further reports of confusion. Patient has required Fentanyl 275 mcg drip, 5 doses of Fentanyl IVP breakthrough. Patient also received 5 doses Ativan in the last 24 hours. - Constitutional General appearance: Present: cooperative, no acute distress - Head Head exam: Present: atraumatic, normal inspection - Eye Eye exam: Present: normal appearance. Absent: periorbital swelling, periorbital tenderness - ENT ENT exam: Present: normal external ear exam - Neck Neck exam: Present: full ROM, normal inspection - Respiratory Respiratory exam: Present: decreased breath sounds, CTAB. Absent: accessory muscle use, respiratory distress - Cardiovascular Cardiovascular exam: Present: +S1, +S2 - GI/Abdominal GI/Abdominal exam: Present: hypoactive bowel sounds, soft. Absent: tenderness - Extremities Exam Extremities exam: Present: normal inspection. Absent: pedal edema - Back Exam Back exam: Present: normal inspection - Neurological Exam Neurological exam: Present: alert, oriented X3. Absent: altered - Psychiatric Psychiatric exam: Present: flat affect - Skin Skin exam: Present: dry, intact, pallor, warm Palliative Quality Palliative Quality: Screen for Code Status: Yes, Screen for Goals of Care: Yes, Screen for Pain: Yes, If Pain Regimen Started, Initiate Bowel Regimen: Yes, Screen for Nausea/Vomitting: Yes Code Status: 05/05/19 16:55 Resuscitation Status: Active [RES] Routine Comment: Resuscitation Status: DNR-Comfort Care Palliative Scale - Palliative Performance Scale How ambulatory is this patient?: Totally bed bound What is patient's level of activity and evidence of disease?: Unable to do most activity, Extensive disease How much self-care assistance does patient require?: Mainly assistance How much oral intake does the patient have?: Minimal to sips What is this patient's level of consciousness?: Full Palliative Performance Score: 30 % Consult Discharge Plan - Plan Referrals: [facility] [Primary Care Provider] -
[2019-05-15] MEDS: FentaNYL (PF) 2,500 MCG in EMPTY BAG 1 EACH IVC SCH ×2 (03:18→12:33)
[2019-05-15] MEDS: *HR* FentaNYL (PF) 100 MCG/2 ML VIAL IVP PRN ×5 (03:23→23:54)
[2019-05-15] MEDS: Metoclopramide 10 MG/2 ML VIAL IVP SCH ×3 (07:48→23:43)
[2019-05-15] MEDS: Pantoprazole 40 MG VIAL IVP SCH (07:48)
[2019-05-15] MEDS: Ondansetron 4 MG/2 ML VIAL IVP PRN (07:53)
--- NOTE | 2019-05-15 09:24 | Palliative Progress Note ---
Date of Encounter: 05/15/19 Time of Encounter: 08:50 - Assessment and plan (1) COPD (chronic obstructive pulmonary disease) Current Visit: No Status: Acute Qualifiers: COPD type: unspecified COPD Qualified Code(s): J44.9 - Chronic obstructive pulmonary disease, unspecified (2) Cancer associated pain Current Visit: Yes Status: Acute Assessment and plan: Patient reports pain at a 6/10 at this time. Reports Roxanol works well, but tastes awful. Discussed need to transition off IV Fentanyl for disposition, patient agreeable. Changed Fentanyl IV to Fentanyl transdermal patches with order to decrease by 1/2 then discontinue over 12 hours. Changed Roxanol to Oxycodone. Continue IV Fentanyl Push PRN. (3) Goals of care, counseling/discussion Current Visit: Yes Status: Acute Assessment and plan: Plan at this time to continue to work on pain control, with intent to transition to transdermal and oral dosing for discharge planning. Patient to remain GIP at this time. (4) Hospice care patient Current Visit: Yes Status: Acute (5) Constipation Current Visit: Yes Status: Acute Assessment and plan: Encouraged patient to utilize suppository today. No bowel movement. Hypoactive bowel sounds. Changed Suppository to scheduled. (6) Esophageal carcinoma Current Visit: No Status: Acute (7) Nausea & vomiting Current Visit: Yes Status: Acute Assessment and plan: Patient has received 1 doses Zofran and 1 dose Phenergan in the last 24 hours. Continue PRN. Qualifiers: Vomiting type: unspecified Vomiting Intractability: non-intractable Qualified Code(s): R11.2 - Nausea with vomiting, unspecified - Time Spent With Patient Total time spent is greater than 50% in coordination of care (as documented) at patient's floor/unit and/or counseling patient: 25 - 35 minutes - Subjective Interval history: Patient awake, alert, and oriented times 3 upon arrival for assessment. Reports pain at 6/10 currently, described as sore, since getting choked last evening and having alot of coughing. Patient reports nausea/vomiting well controlled at this time. Denies anxiety. Complains of horrible taste with Roxanol, will make alterations to medication regimen. - Constitutional General appearance: Present: cooperative, no acute distress - Head Head exam: Present: atraumatic, normal inspection - Eye Eye exam: Present: EOMI, normal appearance. Absent: periorbital swelling, periorbital tenderness Pupils: Present: normal accommodation - ENT ENT exam: Present: mucous membranes dry, normal external ear exam - Neck Neck exam: Present: full ROM, normal inspection - Respiratory Respiratory exam: Present: CTAB - Cardiovascular Cardiovascular exam: Present: +S1, +S2 - GI/Abdominal GI/Abdominal exam: Present: hypoactive bowel sounds, soft. Absent: tenderness - Rectal Rectal exam: Present: deferred - Extremities Exam Extremities exam: Present: normal inspection (Hx RBKA). Absent: pedal edema - Back Exam Back exam: Present: normal inspection - Neurological Exam Neurological exam: Present: alert, oriented X3, strengths equal and symetr t hroughout. Absent: altered - Psychiatric Psychiatric exam: Present: normal affect, normal mood - Skin Skin exam: Present: dry, intact, warm Palliative Quality Palliative Quality: Screen for Code Status: Yes, Screen for Goals of Care: Yes, Screen for Pain: Yes, If Pain Regimen Started, Initiate Bowel Regimen: Yes, Screen for Nausea/Vomitting: Yes Code Status: 05/05/19 16:55 Resuscitation Status: Active [RES] Routine Comment: Resuscitation Status: DNR-Comfort Care Palliative Scale - Palliative Performance Scale How ambulatory is this patient?: Totally bed bound What is patient's level of activity and evidence of disease?: Unable to do most activity, Extensive disease How much self-care assistance does patient require?: Mainly assistance How much oral intake does the patient have?: Minimal to sips What is this patient's level of consciousness?: Full Palliative Performance Score: 30 % Consult Discharge Plan - Plan [facility]errals: [facility] [Primary Care Provider] -
[2019-05-15] MEDS ORDERED: *HR* FentaNYL PATCH 75 MCG PATCH TD SCH (09:30)
[2019-05-15] MEDS: FENTANYL TD SCH (11:21)
[2019-05-15] MEDS: *HR* Promethazine 25 MG/ML VIAL IVP PRN ×2 (12:33→22:12)
[2019-05-15] MEDS: OXYCODONE Oral CONC 10 MG/0.5 ML ORAL.SYG SL PRN ×2 (16:01→22:11)
[2019-05-15] MEDS: Bisacodyl 10 MG RECTAL SUPPOSITORY RC SCH (22:15)
[2019-05-16] MEDS: Pantoprazole 40 MG VIAL IVP SCH (08:07)
[2019-05-16] MEDS: Metoclopramide 10 MG/2 ML VIAL IVP SCH (08:07)
[2019-05-16] MEDS ORDERED: *HR* LORazepam Oral Conc 2 MG/ML SL PRN (09:22)
[2019-05-16] MEDS ORDERED: chlorproMAZINE 25 MG TABLET PO PRN ×2 (09:23→10:40)
[2019-05-16] MEDS ORDERED: OXYCODONE Oral CONC 10 MG/0.5 ML ORAL.SYG SL PRN (09:24)
--- NOTE | 2019-05-16 09:29 | Palliative Progress Note ---
Date of Encounter: 05/16/19 Time of Encounter: 09:20 - Assessment and plan (1) Cancer associated pain Current Visit: Yes Status: Acute Assessment and plan: Pt has tolerated transition to Fentanyl patch well. Has utilized Oxycodone x2 last 24 hours, as well as Fentanyl 50 x 2. Will order Oxycodone 10mg dose for severe breakthrough pain, and leave the Oxy 5mg for moderate pain, hoping that he will not require the IV Fentanyl. Monitor. (2) Hiccoughs Current Visit: Yes Status: Acute Assessment and plan: Will change Reglan IV to po Thorazine PRN. MOnitor. (3) Anxiety Current Visit: Yes Status: Acute Assessment and plan: Will change IV Lorazepam to SL. Patient states that this also assists with his nausea. (4) Nausea Current Visit: Yes Status: Acute (5) Esophageal perforation Current Visit: Yes Status: Acute Assessment and plan: Patient taking po liquids, tolerating and having BM's. This perforation may have walled off as he has been stable and increasing po intake. (6) Esophageal carcinoma Current Visit: No Status: Acute (7) Hospice care patient Current Visit: Yes Status: Acute Assessment and plan: D/W [facility] - patient will need dc plan initiated, as off Fentanyl drip now and doing fairly well. 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 - Time Spent With Patient Total time spent is greater than 50% in coordination of care (as documented) at patient's floor/unit and/or counseling patient: - Subjective Interval history: Patient in good spirits, no complaints this am, drinking milk. Tolerated transition to Fentanyl patch well. Vitals stable. Taking po liquids, having BM's. Some nausea yesterday but no vomiting. No family present currently. - Constitutional General appearance: Present: no acute distress, thin - Respiratory Respiratory exam: Present: decreased breath sounds, CTAB - Cardiovascular Cardiovascular exam: Present: +S1, +S2 - GI/Abdominal Additional comments: Binder remains in place. Abd soft. Raffi drain remains in place with scant amount of drainage. - Extremities Exam Extremities exam: Present: normal capillary refill, normal inspection Additional comments: Old rt BKA - Neurological Exam Neurological exam: Present: alert, oriented X3, strengths equal and symetr throughout - Skin Skin exam: Present: dry, pallor, warm Palliative Quality Palliative Quality: Screen for Code Status: Yes, Screen for Goals of Care: Yes, Screen for Pain: Yes, If Pain Regimen Started, Initiate Bowel Regimen: Yes, Screen for Nausea/Vomitting: Yes Code Status: 05/05/19 16:55 Resuscitation Status: Active [RES] Routine Comment: Resuscitation Status: DNR-Comfort Care Palliative Scale - Palliative Performance Scale How ambulatory is this patient?: Totally bed bound What is patient's level of activity and evidence of disease?: Unable to do most activity, Extensive disease How much self-care assistance does patient require?: Mainly assistance How much oral intake does the patient have?: Minimal to sips What is this patient's level of consciousness?: Full Palliative Performance Score: 30 % Consult Discharge Plan - Plan Referrals: [facility] [Primary Care Provider] -
[2019-05-16] MEDS: *HR* FentaNYL (PF) 100 MCG/2 ML VIAL IVP PRN ×3 (10:16→17:24)
--- NOTE | 2019-05-16 11:13 | Pallative History & Physical ---
Date of Encounter: 05/16/19 Assessment and Plan (1) Cancer associated pain Current visit: Yes Status: Acute (2) Hiccoughs Current visit: Yes Status: Acute (3) Anxiety Current visit: Yes Status: Acute (4) Nausea Current visit: Yes Status: Acute (5) Esophageal perforation Current visit: Yes Status: Acute (6) Esophageal carcinoma Current visit: No Status: Acute (7) Hospice care patient Current visit: Yes Status: Acute Internal Medicine - H&P: HPI History of present illness: Mr. 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, partial removal of liver, exploratoy lap, J tube placement, 6/5 exp lap for pneumoperitoneum, kathleen drain placed - Social History Smoking Status: Former smoker Smokeless Tobacco Status: No Alcohol use: none Drug use: none - Family History Maternal Grandmother Living Status: Hx Family Cardiac Disorders: Yes (ND) Hx Family Respiratory Disorders: No Hx Family Cancer: No Hx Family GI Disorders: No Hx Family Endocrine Disorder: No Hx Family Neuromuscular Disorders: No Hx Family Neurologic Disorders: No Hx Family HEENT Disorders: No Hx Family Autoimmune Disorders: No Father Living Status: Hx Family Cardiac Disorders: No Hx Family Respiratory Disorders: No Hx Family Cancer: Yes (liver) Hx Family GI Disorders: No Hx Family Endocrine Disorder: No Hx Family Neuromuscular Disorders: No Hx Family Neurologic Disorders: No Hx Family HEENT Disorders: No Hx Family Autoimmune Disorders: No Mother Living Status: Still Living Hx Family Cancer: Yes Brother Living Status: Hx Family Cardiac Disorders: Yes Internal Medicine - H&P: Meds No Known Home Drugs 05/06/19 [History] Allergy/AdvReac Type Severity Reaction Status Date / Time lisinopril AdvReac Cough Verified 05/03/19 11:22 Palliative Care-Exam - Constitutional Vitals: Temp Pulse Resp BP Pulse Ox 98.0 F 91 15 94/63 94 05/16/19 07:41 05/16/19 07:41 05/16/19 07:41 05/16/19 07:41 05/16/19 07:41 General appearance: Present: no acute distress, thin Palliative Quality Palliative Quality: Screen for Code Status: Yes, Screen for Goals of Care: Yes, Screen for Pain: Yes, If Pain Regimen Started, Initiate Bowel Regimen: Yes, Screen for Nausea/Vomitting: Yes Code Status: 05/05/19 16:55 Resuscitation Status: Active [RES] Routine Comment: Resuscitation Status: DNR-Comfort Care
[2019-05-16] MEDS: Bisacodyl 10 MG RECTAL SUPPOSITORY RC SCH (19:39)
[2019-05-16] MEDS: OXYCODONE Oral CONC 10 MG/0.5 ML ORAL.SYG SL PRN (21:50)
[2019-05-17] MEDS: *HR* FentaNYL (PF) 100 MCG/2 ML VIAL IVP PRN ×3 (04:06→15:07)
[2019-05-17] MEDS ORDERED: *HR* LORazepam Oral Conc 2 MG/ML SL PRN (11:06)
--- NOTE | 2019-05-17 11:09 | Palliative Progress Note ---
Date of Encounter: 05/17/19 Time of Encounter: 10:50 - Assessment and plan (1) Cancer associated pain Current Visit: Yes Status: Acute Assessment and plan: Remains under good control. Fentanyl continues at 275mcg. Has Oxycodone for breakthrough pain, has been utilized x3 last 24 hours. He has still utilized some IV Fentanyl, as he does not like the taste of liquid. (2) Hiccoughs Current Visit: Yes Status: Acute Assessment and plan: Has Thorazine available if needed but has not utilized. (3) Anxiety Current Visit: Yes Status: Acute Assessment and plan: Will decrease Lorazepam to 0.5mg and monitor. The 1mg made him very sleepy this am, and he felt oversedated. (4) Nausea Current Visit: Yes Status: Acute (5) Esophageal perforation Current Visit: Yes Status: Acute (6) Esophageal carcinoma Current Visit: No Status: Acute (7) Hospice care patient Current Visit: Yes Status: Acute Assessment and plan: SW working with patient/family on disposition to [facility] facility for continued hospice care. [facility], which was patient's first choice did not have any beds. - Time Spent With Patient Total time spent is greater than 50% in coordination of care (as documented) at patient's floor/unit and/or counseling patient: - Subjective Interval history: Patient awake and alert at this time, was asleep soundly when I visited earlier. Diaphoretic, assisted with gown and linen change. He states that pain still under good control. Did take Lorazepam earlier this am, and states it "put him out". Discussed and will decrease dose. Still tolerating po, mainly drinking milk. - Constitutional General appearance: Present: no acute distress - Respiratory Respiratory exam: Present: decreased breath sounds, CTAB - Cardiovascular Cardiovascular exam: Present: +S1, +S2 - GI/Abdominal GI/Abdominal exam: Present: diminished bowel sounds, soft Additional comments: Wet to dry dressing intact with binder. Raffi drain to suction with scant amount drainage. - Additional comments: Voids per urinal, urine dk bing. 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 - Neurological Exam Neurological exam: Present: alert, oriented X3, strengths equal and symetr throughout - Skin Skin exam: Present: diaphoretic, pallor, warm Palliative Quality Palliative Quality: Screen for Code Status: Yes, Screen for Goals of Care: Yes, Screen for Pain: Yes, If Pain Regimen Started, Initiate Bowel Regimen: Yes, S creen for Nausea/Vomitting: Yes Code Status: 05/05/19 16:55 Resuscitation Status: Active [RES] Routine Comment: Resuscitation Status: DNR-Comfort Care Palliative Scale - Palliative Performance Scale How ambulatory is this patient?: Totally bed bound What is patient's level of activity and evidence of disease?: Unable to do most activity, Extensive disease How much self-care assistance does patient require?: Mainly assistance How much oral intake does the patient have?: Minimal to sips What is this patient's level of consciousness?: Full Palliative Performance Score: 30 % Consult Discharge Plan - Plan [facility]errals: [facility] [Primary Care Provider] -
--- NOTE | 2019-05-17 15:26 | Pallative History & Physical ---
Date of Encounter: 05/17/19 Assessment and Plan (1) Cancer associated pain Current visit: Yes Status: Acute (2) Hiccoughs Current visit: Yes Status: Acute (3) Anxiety Current visit: Yes Status: Acute (4) Nausea Current visit: Yes Status: Acute (5) Esophageal perforation Current visit: Yes Status: Acute (6) Esophageal carcinoma Current visit: No Status: Acute (7) Hospice care patient Current visit: Yes Status: Acute Internal Medicine - H&P: HPI History of present illness: Mr. 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, partial removal of liver, exploratoy lap, J tube placement, 6/5 exp lap for pneumoperitoneum, kathleen drain placed - Social History Smoking Status: Former smoker Smokeless Tobacco Status: No Alcohol use: none Drug use: none - Family History Maternal Grandmother Living Status: Hx Family Cardiac Disorders: Yes (OK) Hx Family Respiratory Disorders: No Hx Family Cancer: No Hx Family GI Disorders: No Hx Family Endocrine Disorder: No Hx Family Neuromuscular Disorders: No Hx Family Neurologic Disorders: No Hx Family HEENT Disorders: No Hx Family Autoimmune Disorders: No Father Living Status: Hx Family Cardiac Disorders: No Hx Family Respiratory Disorders: No Hx Family Cancer: Yes (liver) Hx Family GI Disorders: No Hx Family Endocrine Disorder: No Hx Family Neuromuscular Disorders: No Hx Family Neurologic Disorders: No Hx Family HEENT Disorders: No Hx Family Autoimmune Disorders: No Mother Living Status: Still Living Hx Family Cancer: Yes Brother Living Status: Hx Family Cardiac Disorders: Yes Internal Medicine - H&P: Meds No Known Home Drugs 05/06/19 [History] Allergy/AdvReac Type Severity Reaction Status Date / Time lisinopril AdvReac Cough Verified 05/03/19 11:22 Palliative Care-Exam - Constitutional Vitals: Temp Pulse Resp BP Pulse Ox 98.3 F 90 15 99/67 94 05/17/19 07:23 05/17/19 07:23 05/17/19 07:23 05/17/19 07:23 05/17/19 07:23 General appearance: Present: no acute distress Palliative Quality Palliative Quality: Screen for Code Status: Yes, Screen for Goals of Care: Yes, Screen for Pain: Yes, If Pain Regimen Started, Initiate Bowel Regimen: Yes, Screen for Nausea/Vomitting: Yes Code Status: 05/05/19 16:55 Resuscitation Status: Active [RES] Routine Comment: Resuscitation Status: DNR-Comfort Care
--- NOTE | 2019-05-17 15:47 | Physician Discharge Referral ---
ExtendedCare Referral Info Transfer To: [facility] with [place] hospice care Provider in Charge after Transfer: [facility] Advisor Institutional Level of Care: Intermediate - Diagnosis (1) Esophageal carcinoma Priority: Primary Status: Acute (2) Esophageal perforation Priority: Secondary Status: Acute (3) Cancer associated pain Priority: Secondary Status: Resolved (4) Hiccoughs Status: Resolved (5) Anxiety Status: Resolved (6) Nausea Status: Resolved Expected Duration of Placement: FPC Prognosis: Poor Aware of Diagnosis: Patient, Family Aware of Prognosis: Patient, Family - Transfer Medications Prescriptions: LORazepam Oral Conc [Ativan Oral Conc] 0.5 mg PO Q4H PRN 7 Days #30 mls PRN Reason: anxiety/nausea FentaNYL PATCH [Duragesic] 100 mcg TD Q72H 7 Days #3 patch.td72 FentaNYL PATCH [Duragesic] 100 mcg TD Q72H 7 Days #3 patch.td72 FentaNYL PATCH [Duragesic] 75 mcg TD Q72H 7 Days #3 patch.td72 OXYCODONE Oral CONC [Oxycodone Oral Conc] 15 mg PO Q3H PRN 7 Days #30 oral.syg PRN Reason: Breakthrough Pain Home Medications: Bisacodyl [Dulcolax] 10 mg RC HS supp.rect 05/18/19 [Rx] FentaNYL PATCH [Duragesic] 75 mcg TD Q72H 7 Days #3 patch.td72 05/18/19 [Rx] FentaNYL PATCH [Duragesic] 100 mcg TD Q72H 7 Days #3 patch.td72 05/18/19 [Rx] FentaNYL PATCH [Duragesic] 100 mcg TD Q72H 7 Days #3 patch.td72 05/18/19 [Rx] LORazepam Oral Conc [Ativan Oral Conc] 0.5 mg PO Q4H PRN 7 Days #30 mls 05/18/19 [Rx] OXYCODONE Oral CONC [Oxycodone Oral Conc] 15 mg PO Q3H PRN 7 Days #30 oral.syg 05/18/19 [Rx] Omeprazole [PriLOSEC] 20 mg PO DAILY@0630 capsule. 05/18/19 [Rx] chlorproMAZINE [Thorazine] 25 mg PO Q6H PRN tablet 05/18/19 [Rx] Allergies/Adverse Reactions: Allergy/AdvReac Type Severity Reaction Status Date / Time lisinopril AdvReac Cough Verified 05/03/19 11:22 - Respiratory Orders Oxygen / L per min (2-4L PRN) Smoking Cessation: Smoking cessation has been advised. For more information, call the [place] Tobacco Quit Line at 2-404-IYWL-NOW. - Ancillary Orders May use pressure relief devices daily prn, May go on ROSEMARY w/family/respon democrat w/meds at nurse discretion PRN, May have alcoholic beverages - Advance Directives Power of Staff Pharmacist [facility]: Yes Code Status: DNR-Comfort Care - Mobility Orders Chair - Rehabiliation Orders Rehab Potential: Poor - Treatments Skin tear care topically daily PRN per policy, May check for fecal impaction rectally daily PRN, Fleet enema rectally every other day PRN cleansing purposes List/Other: Cleanse wound and Wet to dry dressing to abd wound daily MOnitor output from Raffi drain daily - Diet Orders House Supplement per Dietary: Liquid diet with supplement CERTIFICATION: I certify that the transfer of the above named patient to an Extended Care Facility is necessary for the continuing treatment of the diagnosis listed. The above information is true and accurate reflection of patient's current condition. Confidential - Redisclosure prohibited without a patient's written consent.
[2019-05-17] MEDS: OXYCODONE Oral CONC 10 MG/0.5 ML ORAL.SYG SL PRN ×3 (17:25→23:38)
[2019-05-17] MEDS: Bisacodyl 10 MG RECTAL SUPPOSITORY RC SCH (20:23)
[2019-05-18] MEDS: OXYCODONE Oral CONC 10 MG/0.5 ML ORAL.SYG SL PRN ×4 (04:02→13:13)
[2019-05-18 07:01] VITALS: BP 91/62
[2019-05-18] MEDS: FENTANYL TD SCH (08:52)
--- NOTE | 2019-05-18 09:11 | Discharge Summary ---
Date of Encounter: 05/18/19 Time of Encounter: 09:10 - Discharge Diagnosis (1) Esophageal carcinoma Priority: Primary Status: Acute (2) Esophageal perforation Priority: Secondary Status: Acute (3) Cancer associated pain Priority: Secondary Status: Resolved - Hospital Course Hospital course: Mr. Armijo is a 53 year old male with a history of esophageal cancer s/p chemotherapy/radiation, who was transferred from [facility] after he was taken and evaluated for chest pain. He was taken to OR emergently, after he was found to have perforation r/t esophageal mass. This was not amenable for any repair, so surgery was aborted. Raffi drain was placed. De cisions were held with pt and prognosis was found to be grim. He desired transition closer to home to spend more time with family, but needed pain control, so he was admitted as general inpatient hospice for pain management. Patient initially required titration of a Fentanyl drip, but eventually was able to well tolerate transition to Fentanyl patch and SL Oxycodone. He has also been able to tolerate po liquids without distress, nausea or vomiting, and is having bowel movements. His vital signs have actually improved as well, so likely perforation has walled off for now. He is aware that overall, no other options are available for his cancer, and main goal at this point is comfort care. Patient remains stable today - [facility]. His has some physical limitations, and also has custody of 2 young grandchildren, so she is not able to assume care for him. - Time Spent with Patient Total time spent providing and/or coordinating discharge services: Greater than 30 minutes Specific discharge activities: 45 min spent on discharge discussing medication, prescriptions, discussion with primary nurse, and coordination with Hospice. - Discharge Medications Prescriptions: New LORazepam Oral Conc [Ativan Oral Conc] 0.5 mg PO Q4H PRN 7 Days #30 mls PRN Reason: anxiety/nausea FentaNYL PATCH [Duragesic] 100 mcg TD Q72H 7 Days #3 patch.td72 FentaNYL PATCH [Duragesic] 75 mcg TD Q72H 7 Days #3 patch.td72 FentaNYL PATCH [Duragesic] 100 mcg TD Q72H 7 Days #3 patch.td72 OXYCODONE Oral CONC [Oxycodone Oral Conc] 15 mg PO Q3H PRN 7 Days #30 oral.syg PRN Reason: Breakthrough Pain chlorproMAZINE [Thorazine] 25 mg PO Q6H PRN tablet PRN Reason: Hiccups Bisacodyl [Dulcolax] 10 mg RC HS supp.rect Omeprazole [PriLOSEC] 20 mg PO DAILY@0630 capsule. Home Medications: Bisacodyl [Dulcolax] 10 mg RC HS supp.rect 05/18/19 [Rx] FentaNYL PATCH [Duragesic] 75 mcg TD Q72H 7 Days #3 patch.td72 05/18/19 [Rx] FentaNYL PATCH [Duragesic] 100 mcg TD Q72H 7 Days #3 patch.td72 05/18/19 [Rx] FentaNYL PATCH [Duragesic] 100 mcg TD Q72H 7 Days #3 patch.td72 05/18/19 [Rx] LORazepam Oral Conc [Ativan Oral Conc] 0.5 mg PO Q4H PRN 7 Days #30 mls 05/18/19 [Rx] OXYCODONE Oral CONC [Oxycodone Oral Conc] 15 mg PO Q3H PRN 7 Days #30 oral.syg 05/18/19 [Rx] Omeprazole [PriLOSEC] 20 mg PO DAILY@0630 capsule. 05/18/19 [Rx] chlorproMAZINE [Thorazine] 25 mg PO Q6H PRN tablet 05/18/19 [Rx] Allergies/Adverse Reactions: Allergy/AdvReac Type Severity Reaction Status Date / Time lisinopril AdvReac Cough Verified 05/03/19 11:22 Internal Medicine - DS: Prov Date of admission: 05/05/19 16:36 [facility] physician[facility] Consults: 05/05/19 16:55 Consult to Palliative Care [CONS] Routine Comment: Consulting Provider: [facility] [place] Reason for Consult: GIP Call Completed: No 05/07/19 22:51 Consult to Pastoral Services [CONS] Routine Comment: Discharging clinician: Jane Lewis Anticipated date of discharge: 05/18/19 Internal Medicine - DS: Exam - Constitutional Vitals: Vital Signs Temp Pulse Resp BP Pulse Ox 05/18/19 07:00 98.5 F 108 15 91/62 95 05/17/19 20:03 98.1 F 96 18 102/71 94 Intake and Output 06/05/18/19 05/18/19 23:59 07:59 15:59 Intake Total 0 / 120 120 / 120 Output Total 200 / 503 0 / 0 Balance -200 / -503 0 / 120 120 / 120 Intake: Oral 0 / 120 120 / 120 Output: Urine 200 / 500 0 / 0 Other: Meal Breakfast Percent of Meal Consumed 0% General appearance: no acute distress, thin - Head Head exam: Present: normal inspection, normocephalic - Respiratory Respiratory exam: Present: decreased breath sounds, CTAB - Cardiovascular Cardiovascular exam: Present: +S1, +S2 - GI/Abdominal GI/Abdominal exam: Present: normal bowel sounds, soft, tenderness Additional comments: Wet to dry dressing to abd wound. Raffi drain in place with scant amount drainage - Additional comments: Voids per urinal. 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
== END 2019-05-18 13:24 | disposition hospice, inpatient (51) | DRG 947 ==
LOC: 2ANU 16:36
PROVIDERS: ADMIT Internal Medicine Hospice and Palliative Medicine; ATTEND Internal Medicine Hospice and Palliative Medicine